=== PATIENT | male | born 1950 | race Caucasian/White ===

== ENCOUNTER 2017-11-14 16:18 | Emergency (ER) | payer MEDICARE, SELFPAY ==
[2017-11-14 16:29] VITALS: BP 137/95; PULSE 101; RESP 24; TEMP 36.5; O2SAT 98
[2017-11-14 16:46] VITALS: BP 118/84; PULSE 97; O2SAT 100
[2017-11-14 17:01] VITALS: BP 116/76; PULSE 106
[2017-11-14 17:15] VITALS: BP 121/84; PULSE 102
[2017-11-14 17:17] LABS: Abs Immature Grans 0.12 k/cumm (0.0-0.09); HCT 46.6 % (40.0-50.0); Mean Corp. HGB Concentration 34.3 g/dL (32.0-36.0); Mean Corpuscular Volume 96.1 fL (80-95); Mean Platelet Volume 10.3 fL (8.0-11.0); Platelet Count 255 x1000/uL (130-400); RBC 4.85 m/cumm (4.50-6.00); RBC Distribution Width 14.7 % (11.8-14.1); White Blood Cell Count 11.69 k/cumm (4.4-10.8)
[2017-11-14] MEDS: Ketorolac 30 MG/ML VIAL IVP (17:26)
--- NOTE | 2017-11-14 17:34 | DI.REPORT_ITS ---
SYMPTOM/DIAGNOSIS: SEVERE ABDOMINAL PAIN ABDOMEN: 11/14/17 Two views were obtained. There are vascular clips in the paramedian location on the right. There is a large quantity of fecal material in the left colon without evidence of obstruction. No free intraperitoneal air identified on uipright view. CONCLUSION: No evidence of acute disease.
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
[2017-11-14 17:44] LABS: Absolute Eosinophil Count 1.52 k/cumm (0.0-0.7); Absolute Lymphocyte Count 3.16 k/cumm (1.2-3.4); Atypical Lymphocytes % 13
[2017-11-14 17:45] LABS: Diff Comment Manual Differential
[2017-11-14 17:47] LABS: Acanthocytes 1+
[2017-11-14 17:49] LABS: Macrocytosis 1+
--- NOTE | 2017-11-14 18:08 | DI.VRAD_ITS ---
EXAM: XR Abdomen, 2 Views CLINICAL HISTORY: 67 years old, male; Pain; Abdominal pain TECHNIQUE: Frontal view of the abdomen/pelvis with upright view of the abdomen. COMPARISON: No relevant prior studies available. FINDINGS: Lower thorax: The lung bases are clear. Intraperitoneal space: No free air. Gastrointestinal tract: There is a moderate amount fecal matter and air in the colon extending from the cecum to the rectum. There are few air-filled loops of nondistended small bowel. No bowel obstruction. Organs: Unremarkable as visualized. Bones/joints: There are degenerative changes within the lumbar spine and both hips. Soft tissues: Multiple surgical clips superimposed over the mid abdomen. Vasculature: Calcifications within the pelvis consistent with phleboliths. IMPRESSION: No bowel obstruction or free intraperitoneal air. Dictated and Authenticated by: Ck Bruno MD. Ordering:MELINDA STACK MD
[2017-11-14 18:15] LABS: ALT 39 U/L (16-63); AST 37 U/L (15-37); Albumin 3.8 g/dL (3.4-5.0); Alkaline Phosphatase 97 U/L (46-116); Amylase 83 U/L (25-115); Anion Gap 10.4 mmol/L (3-11); BUN 15 mg/dL (7-18); Bilirubin, Direct 0.15 mg/dL (0.00-0.20); Bilirubin, Total 0.86 mg/dL (0.2-1.0); CO2 27.6 mmol/L (21.0-32.0); CREATININE 0.93 mg/dL (0.70-1.30); Calcium 9.7 mg/dL (8.5-10.1); Chloride 99 mmol/L (98-107); Glucose 99 mg/dL (70-100); Lipase 103 U/L (73-393); Magnesium 1.9 mg/dL (1.8-2.4); Potassium 4.2 mmol/L (3.5-5.1); Sodium 137 mmol/L (136-145); Total Protein 8.2 g/dL (6.4-8.2)
[2017-11-14 18:24] LABS: Troponin I < 0.02 ng/mL (0.00-0.06)
[2017-11-14 18:24] LABS: Bilirubin Negative (Negative); Blood Trace-lysed (Negative); Clarity Clear; Glucose Negative (Negative); Ketones Negative (Negative); Leukocyte Esterase Negative (Negative); Nitrite Negative (Negative); Specific Gravity <= 1.005 (1.005-1.025); Urobilinogen 0.2 EU/dL (Up TO 0.2); pH 5.5 (5-8)
[2017-11-14 18:33] LABS: Bacteria Negative HPF (Negative); C & S Indicated? No; Casts Negative LPF (Negative); Crystals Negative HPF (Negative); Epithelial Cells Negative HPF (Negative); Mucus Negative (Negative); Other Cells Negative (Negative); RBC 0-2 (0-2); WBC Negative HPF (0-5)
[2017-11-14 18:53] VITALS: BP 128/76; PULSE 85; RESP 16; O2SAT 98
== END 2017-11-14 19:00 | disposition home or self-care (01) ==
PROVIDERS: Emergency Provider Student in an Organized Health Care Education/Training Program
DX: K59.00 Constipation, unspecified (principal)
CPT/HCPCS: 80048; 80053; 80076; 83690; 96374; 99284; 74019; 81003; 81015; 82150; 83735; 84484; 85025; J1885

== ENCOUNTER 2018-05-05 13:25 | Emergency (ER) | payer OTHER, SELFPAY ==
[2018-05-05] VITALS (50 sets, daily range): BP systolic 147–165; BP diastolic 85–98; PULSE 52–99; RESP 9–27; TEMP 36.7; O2SAT 85–100
[2018-05-05 14:13] LABS: HCT 44.5 % (40.0-50.0); HGB 15.5 g/dL (13.5-17.5); Mean Corp. HGB Concentration 34.8 g/dL (32.0-36.0); Mean Corpuscular Hemoglobin 34.2 pg (27.0-33.0); Mean Corpuscular Volume 98.2 fL (80-95); Mean Platelet Volume 9.8 fL (8.0-11.0); Platelet Count 218 x1000/uL (130-400); RBC 4.53 m/cumm (4.50-6.00); RBC Distribution Width 14.9 % (11.8-14.1); White Blood Cell Count 10.67 k/cumm (4.4-10.8)
[2018-05-05 14:19] LABS: Anion Gap 8.8 mmol/L (3-11); BUN 19 mg/dL (7-18); CO2 30.2 mmol/L (21.0-32.0); CREATININE 1.01 mg/dL (0.70-1.30); Calcium 9.1 mg/dL (8.5-10.1); Chloride 99 mmol/L (98-107); Glucose 93 mg/dL (70-100); Sodium 138 mmol/L (136-145)
[2018-05-05] MEDS: Normal Saline 1,000 ML 1000 ML IV ×2 (15:04→17:06)
[2018-05-05] MEDS: Ondansetron 4 MG/2 ML VIAL IVP (15:07)
--- NOTE | 2018-05-05 15:08 | W.ED.GENAD ---
Discharge Plan Disposition Patient Disposition: [facility] Condition: Stable Discharge Details Chief Complaint: Abd Prob Clinical Impression: SBO (small bowel obstruction), Colitis, Abdominal pain Primary Care Provider: [facility] ED Provider: Jazz Finley Home Meds and New Rx's Prescriptions: No Action thiamine HCl (vitamin B1) [Vitamin B-1] 100 MG tablet 1 tab PO DAILY RF: 0 tamsulosin 0.4 MG capsule 1 tab PO DAILY RF: 0 hydroxyzine HCl 25 MG tablet 25 mg PO HS RF: 0 finasteride 5 MG tablet 5 mg PO DAILY RF: 0 tadalafil [Cialis] 20 MG tablet 1 tab PO PRN PRNRF: 0 albuterol sulfate [Proventil HFA] 1 PUFF HFA aerosol inhaler 2 puff Inhalation .Q6HR Qty: 1 RF: 0 apixaban [Eliquis] 5 MG tablet 10 mg PO BID Qty: 40 RF: 0 pantoprazole 40 MG tablet,delayed release (DR/EC) 40 mg PO DAILY Qty: 30 RF: 0 Discharge Data Discharge Date/Time-TO BE ENTERED AT DEPARTURE: 05/06/18 04:05 Medical Decision Making <Jazz Finley MD - Last Filed: 05/06/18 13:44> Eric Nelson is a 67 y/o man with a history of heavy alcohol use, GI bleed, GERD presenting to the emergency department with upper abdominal pain that began earlier today accompanied by vomiting. On exam patient is nontoxic appearing, is laughing and pleasant. He smells strongly of alcohol but does not appear to be clinically intoxicated. He intermittently appears uncomfortable and has tenderness in the epigastrium without peritoneal signs. Concern for pancreatitis versus gastritis versus other, less likely biliary disease or SBO. Exam/history not consistent with mesenteric ischemia, sepsis at this time. Plan for screening labs, IV fluid hydration, IV opiate pain control. Patient reports that he developed hives during last CT, plan for labs and possible prep. Pt with etoh+. Desat into high 80s with IV pain meds without somnolence, sats 100% on 3L. Pt with exam unchanged. Pt now reporting that hives occurred [address] scan. Reports no reaction during scans 2018 or [address] a/p, solumedrol given, will give benadryl prior to scan. Pt signed out to Dr. Nance with CT, repeat lactate, reassessment pending. Clinical Impression: abdominal pain Dispostion: still a patient Medical Records Medical records reviewed: Yes I reviewed the patient's medical records. Lab Data Lab results reviewed: Yes I reviewed the patient's lab results. ECG Data Attestation: I personally reviewed and interpreted this ECG (s) as follows: Interpretation: EKG shows NSR at 82 with nl axis, RBBB, no STEMI, non-diagnostic EKG <Nathanael Nance, DO - Last Filed: 05/06/18 01:23> Patient was signed out to me by my colleague Dr. Finley. We are awaiting CT results at that time. Patient CT results have returned, and demonstrates evidence of narrowing at the origin of the SMA, areas of nonspecific prominence in both the small bowel and large bowel can be seen with enteritis and colitis. No pneumatosis or portal venous gas is currently seen. There is also a dilated loop of small bowel in the left hemiabdomen which contains fluid and is associated with an anastomotic suture. Concern for partial obstructive process. There is also evidence of a moderate hiatal hernia with prominence of the distal esophagus, as well as hypodense haziness in the pancreatic head could be motion artifact or pancreatitis. There is also liver lesions which need MRI follow-up, and urinary bladder wall prominence. I discussed these findings with the on-call surgeon here, Dr. Araujo, and she felt that the patient is not appropriate to be left here, and should be transferred to a different facility. I did contact the [facility] discussed the case with the cardiac surgeon, Dr. Holcomb, who made it unquestionably clear after reviewing the image findings, and the patient's clinical scenario including all of his labs that this was not a mesenteric ischemia picture, and that the patient does not have any vascular issues.I did discuss the case with Dr. Reddy the [facility] surgeon, and he did not feel that any acute surgical process was present at this time that needed surgical intervention. He recommended transfer to another lower level facility where there was potential room. He does not feel that the operation should be transferred to the [facility].Currently there are no beds with at [facility], [facility], [facility], [facility], [facility]. All repeat lactate was normal. Patient's vital signs have remained stable here. I have started Cipro Flagyl for his colitis. With vascular recommending no intervention for any vascular etiology, and the patient being on Eliquis, I do not feel that an option or further vascular management is indicated per their recommendation. I discussed the case with and he agreed with the assessment and plan and agreed to accept the patient at [facility]. At this time we feel that we can hold off on an NG tube as he is not currently vomiting, and stick with IV fluids as he has somewhat of a difficult patient at this time. I discussed the imaging findings, and the patient's laboratory results with him. I have extensively reviewed the treatment plan with the patient. I have addressed all patient concerns at this time. I have also discussed the plan with the admitting physician and they agree with the current assessment and plan and have agreed to assume responsibility for the patient. All parties demonstrate verbal understanding and agreement with our assessment and plan at this time. HPI <Jazz Finley MD - Last Filed: 05/06/18 13:44> General Mode of arrival: ambulatory. Date/Time Provider Initiated Documentation: 05/05/18 14:50. Limitations to Documentation: no limitations. Information obtained by: patient, RN notes reviewed and old records reviewed. HPI Narrative: Eric Nelson is a 67-year-old man with history of GERD, GI bleed, heavy alcohol use presenting to emergency department with abdominal pain. Patient reports that this morning he developed severe pain in his upper abdomen. He reports several episodes of vomiting of yellow fluid. There was no dark, bloody, or coffee-ground emesis. He has had no diarrhea, no constipation. Patient reports that he has had similar pain in the past, and is unsure what he was diagnosed with at the time. He denies fevers other pain, shortness of breath, cough, recent travel. States he has been eating and drinking normally. Reports that his last drink was last night, and that he drinks 2-3 alcoholic drinks per day. Related Data Home Medications Medication Instructions Recorded Confirmed finasteride 5 mg PO DAILY 07/16/15 05/05/18 hydroxyzine HCl 25 mg PO HS 07/16/15 05/05/18 tadalafil [Cialis] 1 tab PO PRN PRN 07/16/15 05/05/18 tamsulosin 1 tab PO DAILY 07/16/15 05/05/18 thiamine HCl (vitamin B1) [Vitamin 1 tab PO DAILY 07/16/15 05/05/18 B-1] albuterol sulfate [Proventil HFA] 2 puff INHALATION .Q6HR #1 inh 08/25/15 05/05/18 pantoprazole 40 mg PO DAILY #30 tabcr 03/26/17 05/05/18 apixaban [Eliquis] 10 mg PO BID #40 tablet 07/24/17 05/05/18 Previous Rx's Medication Instructions Recorded albuterol sulfate [Proventil HFA] 2 puff INHALATION .Q6HR #1 inh 08/25/15 pantoprazole 40 mg PO DAILY #30 tabcr 03/26/17 apixaban [Eliquis] 10 mg PO BID #40 tablet 07/24/17 Allergies Allergy/AdvReac Type Severity Reaction Status Date / Time ciprofloxacin Allergy Severe Anaphylaxsi Unverified 05/06/18 01:33 s atropine AdvReac Severe BP drops Unverified 11/14/17 16:32 pentazocine AdvReac Unknown Unverified 11/14/17 16:32 IV contrast AdvReac Unknown Hives Uncoded 11/14/17 16:33 General Stated Complaint: Abd Prob MEGHNA: 3 Review of Systems <Jazz Finley MD - Last Filed: 05/06/18 13:44> Review of Systems Constitutional: denies fevers Eyes: denies eye pain ENT: denies facial pain, dental pain, sore throat Cardiovascular: denies chest pain, edema Respiratory: denies SOB, cough GI: denies diarrhea, melena, hematochezia, hematemesis, reports abdominal pain, vomiting : denies flank pain MSK: denies back pain, neck pain, arthralgias, myalgias Skin: denies rash Neuro: denies headaches, weakness Exam <Jazz Finley MD - Last Filed: 05/06/18 13:44> Narrative Exam Narrative: Constitutional: well and [id number], pleasant, conversing normally. Patient is laughing during discussion, though appears intermittently uncomfortable. Does not appear clinically intoxicated but smells strongly of alcohol HENT: head atraumatic, normocephalic normal inspection, mucous membranes moist Eyes: conjunctiva normal, sclera normal, pupils 3mm b/l Neck: no stridor, normal ROM, trachea midline Chest: normal inspection Resp: normal work of breathing, LCTAB Cardio: normal rate, normal rhythm, no murmur appreciated GI: abdomen soft, non-distended. Tender to palpation across the upper abdomen, worse in the epigastrium. No peritoneal signs, negative McBurney's point tenderness, negative Wagner sign Back: normal inspection, no rash Skin: warm, dry, normal color, no rash Neuro: alert, not altered, grossly non-focal, normal tone Ext: no edema Psych: normal mood, normal affect, normal behavior Course <Jazz Finley MD - Last Filed: 05/06/18 13:44> Vital Signs Temperature 36.7 C 05/05/18 13:54 Pulse 86 05/05/18 13:54 Respiratory Rate 22 05/05/18 13:54 Blood Pressure 157/97 H 05/05/18 13:54 Pulse Oximetry 98 05/05/18 13:54 Temperature 36.7 C 05/05/18 13:54 Temperature Source Temporal Artery Scan 05/05/18 13:54 Pulse 86 05/05/18 13:54 Respiratory Rate 22 05/05/18 13:54 Respiratory Effort 05/05/18 14:39 Blood Pressure 157/97 H 05/05/18 13:54 Blood Pressure Position Sitting 05/05/18 13:54 Pulse Oximetry 98 05/05/18 13:54 Oxygen Delivery Method Room Air 05/05/18 13:54 Oxygen Flow Rate 0 05/05/18 13:54 Pain Level 9 05/05/18 15:06 Lab/Test Results Lab/Test Results: Laboratory Tests Range/Units 05/05/18 05/05/18 14:08 14:08 WBC (4.4-10.8) k/cumm 10.67 RBC (4.50-6.00) m/cumm 4.53 Hgb (13.5-17.5) g/dL 15.5 Hct (40.0-50.0) % 44.5 MCV (80-95) fL 98.2 H MCH (27.0-33.0) pg 34.2 H MCHC (32.0-36.0) g/dL 34.8 RDW (11.8-14.1) % 14.9 H Plt Count (130-400) x1000/uL 218 MPV (8.0-11.0) fL 9.8 Sodium (136-145) mmol/L 138 Potassium (3.5-5.1) mmol/L 4.0 Chloride (98-107) mmol/L 99 Carbon Dioxide (21.0-32.0) mmol/L 30.2 Anion Gap (3-11) mmol/L 8.8 BUN (7-18) mg/dL 19 H Creatinine (0.70-1.30) mg/dL 1.01 Estimated GFR/1.73 m2 (mL/min/1.73m2) >= 60.00 Glucose (70-100) mg/dL 93 Calcium (8.5-10.1) mg/dL 9.1
[2018-05-05] MEDS: diphenhydrAMINE 50 MG/ML VIAL 25 MG IVP ×2 (15:19→18:38)
[2018-05-05 15:37] LABS: INR 1.1 (1.0-3.5); Prothrombin Time 10.4 sec (9.3-10.8)
[2018-05-05] MEDS: HYDROmorphone 2 MG/ML VIAL 0.5 MG IVP ×2 (15:39→21:08)
--- NOTE | 2018-05-05 15:57 | ED.GENADUL_ITS ---
Addendum entered and electronically signed by Nathanael Nance DO 05/06/18 01: 23: Immediately prior to transfer while the patient was receiving his Cipro he did have an allergic reaction to this, demonstrated edema and hives on his arm at the injection site. We will stop the Cipro, give Solu-Medrol Benadryl and ranitidine. No evidence of anaphylaxis on exam. Original Note: Discharge Plan Disposition Patient Disposition: [facility] Condition: Stable Discharge Details Chief Complaint: Abd Prob Clinical Impression: SBO (small bowel obstruction), Colitis, Abdominal pain Primary Care Provider: [facility] Provider: Jazz Finley Home Meds and New Rx's Prescriptions: No Action thiamine HCl (vitamin B1) [Vitamin B-1] 100 MG tablet 1 tab PO DAILY RF: 0 tamsulosin 0.4 MG capsule 1 tab PO DAILY RF: 0 hydroxyzine HCl 25 MG tablet 25 mg PO HS RF: 0 finasteride 5 MG tablet 5 mg PO DAILY RF: 0 tadalafil [Cialis] 20 MG tablet 1 tab PO PRN PRNRF: 0 albuterol sulfate [Proventil HFA] 1 PUFF HFA aerosol inhaler 2 puff Inhalation .Q6HR Qty: 1 RF: 0 apixaban [Eliquis] 5 MG tablet 10 mg PO BID Qty: 40 RF: 0 pantoprazole 40 MG tablet,delayed release (DR/EC) 40 mg PO DAILY Qty: 30 RF: 0 Discharge Data Discharge Date/Time-TO BE ENTERED AT DEPARTURE: 05/06/18 04:05 Medical Decision Making <Jazz Finley MD - Last Filed: 05/06/18 13:44> Eric Nelson is a 67 y/o man with a history of heavy alcohol use, GI bleed , GERD presenting to the emergency department with upper abdominal pain that began earlier today accompanied by vomiting. On exam patient is nontoxic appearing, is laughing and pleasant. He smells strongly of alcohol but does not appear to be clinically intoxicated. He intermittently appears uncomfortable and has tenderness in the epigastrium without peritoneal signs. Concern for pancreatitis versus gastritis versus other, less likely biliary disease or SBO. Exam/history not consistent with mesenteric ischemia, sepsis at this time. Plan for screening labs, IV fluid hydration, IV opiate pain control. Patient reports that he developed hives during last CT, plan for labs and possible prep. Pt with etoh+. Desat into high 80s with IV pain meds without somnolence, sats 100% on 3L. Pt with exam unchanged. Pt now reporting that hives occurred [address] scan[address] Reports no reaction during scans 2018 or 2016. Plan for CT a/p, solumedrol given, will give benadryl prior to scan. Pt signed out to Dr. Nance with CT, repeat lactate, reassessment pending. Clinical Impression: abdominal pain Dispostion: still a patient Medical Records Medical records reviewed: Yes I reviewed the patient's medical records. Lab Data Lab results reviewed: Yes I reviewed the patient's lab results. ECG Data Attestation: I personally reviewed and interpreted this ECG (s) as follows: Interpretation: EKG shows NSR at 82 with nl axis, RBBB, no STEMI, non- diagnostic EKG <Nathanael Nance, - Last Filed: 05/06/18 01:23> Patient was signed out to me by my colleague Dr. Finley. We are awaiting CT results at that time. Patient CT results have returned, and demonstrates evidence of narrowing at the origin of the SMA, areas of nonspecific prominence in both the small bowel and large bowel can be seen with enteritis and colitis. No pneumatosis or portal venous gas is currently seen. There is also a dilated loop of small bowel in the left hemiabdomen which contains fluid and is associated with an anastomotic suture. Concern for partial obstructive process. There is also evidence of a moderate hiatal hernia with prominence of the distal esophagus, as well as hypodense haziness in the pancreatic head could be motion artifact or pancreatitis. There is also liver lesions which need MRI follow-up, and urinary bladder wall prominence. I discussed these findings with the on-call surgeon here, Dr. Araujo, and she felt that the patient is not appropriate to be left here, and should be transferred to a different facility. I did contact the [facility] discussed the case with the cardiac surgeon, Dr. Holcomb, who made it unquestionably clear after reviewing the image findings, and the patient's clinical scenario including all of his labs that this was not a mesenteric ischemia picture, and that the patient does not have any vascular issues.I did discuss the case with Dr. Reddy the [facility] surgeon, and he did not feel that any acute surgical process was present at this time that needed surgical intervention. He recommended transfer to another lower level facility where there was potential room. He does not feel that the operation should be transferred to the [facility].Currently there are no beds with at [facility], [facility], [facility], [facility], [facility]. All repeat lactate was normal. Patient's vital signs have remained stable here. I have started Cipro Flagyl for his colitis. With vascular recommending no intervention for any vascular etiology, and the patient being on Eliquis, I do not feel that an option or further vascular management is indicated per their recommendation. I discussed the case with and he agreed with the assessment and plan and agreed to accept the patient at [facility]. At this time we feel that we can hold off on an NG tube as he is not currently vomiting, and stick with IV fluids as he has somewhat of a difficult patient at this time. I discussed the imaging findings, and the patient's laboratory results with him. I have extensively reviewed the treatment plan with the patient. I have addressed all patient concerns at this time. I have also discussed the plan with the admitting physician and they agree with the current assessment and plan and have agreed to assume responsibility for the patient. All parties demonstrate verbal understanding and agreement with our assessment and plan at this time. HPI <Jazz Finley MD - Last Filed: 05/06/18 13:44> General Mode of arrival: ambulatory . Date/Time Provider Initiated Documentation: 05/05/18 14:50 . Limitations to Documentation: no limitations . Information obtained by: patient, RN notes reviewed and old records reviewed . HPI Narrative: Eric Nelson is a 67-year-old man with history of GERD, GI bleed, heavy alcohol use presenting to emergency department with abdominal pain. Patient reports that this morning he developed severe pain in his upper abdomen. He reports several episodes of vomiting of yellow fluid. There was no dark, bloody, or coffee-ground emesis. He has had no diarrhea, no constipation. Patient reports that he has had similar pain in the past, and is unsure what he was diagnosed with at the time. He denies fevers other pain, shortness of breath, cough, recent travel. States he has been eating and drinking normally. Reports that his last drink was last night, and that he drinks 2-3 alcoholic drinks per day. Related Data Home Medications Medication Instructions Recorded Confirmed finasteride 5 mg PO DAILY 07/16/15 05/05/18 hydroxyzine HCl 25 mg PO HS 07/16/15 05/05/18 tadalafil [Cialis] 1 tab PO PRN PRN 07/16/15 05/05/18 tamsulosin 1 tab PO DAILY 07/16/15 05/05/18 thiamine HCl (vitamin B1) [Vitamin 1 tab PO DAILY 07/16/15 05/05/18 B-1] albuterol sulfate [Proventil HFA] 2 puff INHALATION .Q6HR #1 inh 08/25/15 pantoprazole 40 mg PO DAILY #30 tabcr 03/26/17 05/05/18 apixaban [Eliquis] 10 mg PO BID #40 tablet 07/24/17 05/05/18 Previous Rx's Medication Instructions Recorded albuterol sulfate [Proventil HFA] 2 puff INHALATION .Q6HR #1 inh 08/25/15 pantoprazole 40 mg PO DAILY #30 tabcr 03/26/17 apixaban [Eliquis] 10 mg PO BID #40 tablet 07/24/17 Allergies Allergy/AdvReac Type Severity Reaction Status Date / Time ciprofloxacin Allergy Severe Anaphylaxsi Unverified 05/06/18 01:33 s atropine AdvReac Severe BP drops Unverified 11/14/17 16:32 pentazocine AdvReac Unknown Unverified 11/14/17 16:32 IV contrast AdvReac Unknown Hives Uncoded 11/14/17 16:33 General Stated Complaint: Abd Prob MEGHNA: 3 Review of Systems <Jazz Finley MD - Last Filed: 05/06/18 13:44> Review of Systems Constitutional: denies fevers Eyes: denies eye pain ENT: denies facial pain, dental pain, sore throat Cardiovascular: denies chest pain, edema Respiratory: denies SOB, cough GI: denies diarrhea, melena, hematochezia, hematemesis, reports abdominal pain, vomiting : denies flank pain MSK: denies back pain, neck pain, arthralgias, myalgias Skin: denies rash Neuro: denies headaches, weakness Exam <Jazz Finley MD - Last Filed: 05/06/18 13:44> Narrative Exam Narrative: Constitutional: well and [id number], pleasant, conversing normally. Patient is laughing during discussion, though appears intermittently uncomfortable. Does not appear clinically intoxicated but smells strongly of alcohol HENT: head atraumatic, normocephalic normal inspection, mucous membranes moist Eyes: conjunctiva normal, sclera normal, pupils 3mm b/l Neck: no stridor, normal ROM, trachea midline Chest: normal inspection Resp: normal work of breathing, LCTAB Cardio: normal rate, normal rhythm, no murmur appreciated GI: abdomen soft, non-distended. Tender to palpation across the upper abdomen, worse in the epigastrium. No peritoneal signs, negative McBurney's point tenderness, negative Wagner sign Back: normal inspection, no rash Skin: warm, dry, normal color, no rash Neuro: alert, not altered, grossly non-focal, normal tone Ext: no edema Psych: normal mood, normal affect, normal behavior Course <Jazz Finley MD - Last Filed: 05/06/18 13:44> Vital Signs Temperature 36.7 C 05/05/18 13:54 Pulse 86 05/05/18 13:54 Respiratory Rate 22 05/05/18 13:54 Blood Pressure 157/97 H 05/05/18 13:54 Pulse Oximetry 98 05/05/18 13:54 Temperature 36.7 C 05/05/18 13:54 Temperature Source Temporal Artery Scan 05/05/18 13:54 Pulse 86 05/05/18 13:54 Respiratory Rate 22 05/05/18 13:54 Respiratory Effort 05/05/18 14:39 Blood Pressure 157/97 H 05/05/18 13:54 Blood Pressure Position Sitting 05/05/18 13:54 Pulse Oximetry 98 05/05/18 13:54 Oxygen Delivery Method Room Air 05/05/18 13:54 Oxygen Flow Rate 0 05/05/18 13:54 Pain Level 9 05/05/18 15:06 Lab/Test Results Lab/Test Results: Laboratory Tests Range/Units 05/05/18 05/05/18 14:08 14:08 WBC (4.4-10.8) k/cumm 10.67 RBC (4.50-6.00) m/cumm 4.53 Hgb (13.5-17.5) g/dL 15.5 Hct (40.0-50.0) % 44.5 MCV (80-95) fL 98.2 H MCH (27.0-33.0) pg 34.2 H MCHC (32.0-36.0) g/dL 34.8 RDW (11.8-14.1) % 14.9 H Plt Count (130-400) x1000/uL 218 MPV (8.0-11.0) fL 9.8 Sodium (136-145) mmol/L 138 Potassium (3.5-5.1) mmol/L 4.0 Chloride (98-107) mmol/L 99 Carbon Dioxide (21.0-32.0) mmol/L 30.2 Anion Gap (3-11) mmol/L 8.8 BUN (7-18) mg/dL 19 H Creatinine (0.70-1.30) mg/dL 1.01 Estimated GFR/1.73 m2 (mL/min/1.73m2) >= 60.00 Glucose (70-100) mg/dL 93 Calcium (8.5-10.1) mg/dL 9.1
[2018-05-05 16:35] LABS: Lactate-non-spesis 3.3 mmol/L (0.6-1.4)
[2018-05-05 16:39] LABS: ETHANOL BLOOD 88.8 mg/dL (<3); Lipase 107 U/L (73-393)
[2018-05-05] MEDS: methylPREDNISolone SUCC 125 MG VIAL IVP (17:06)
[2018-05-05 17:41] LABS: Bilirubin Negative (Negative); Blood Trace-intact (Negative); Clarity Clear; Glucose Negative (Negative); Ketones 40 mg/dL (Negative); Leukocyte Esterase Negative (Negative); Nitrite Negative (Negative); Specific Gravity 1.025 (1.005-1.025)
[2018-05-05 17:52] LABS: HCO3 (Venous) 31 mmol/L (22-28); O2 Sat (Venous) 37 % (70-80); TCO2 (Venous) 28 mmol/L (22-29); pCO2 (Venous) 55 mm/Hg (34-47); pH (Venous) 7.35 (7.32-7.43); pO2 (Venous) 25 mm/Hg (28-44)
[2018-05-05 17:53] LABS: Bacteria Negative HPF (Negative); C & S Indicated? No; Casts Negative LPF (Negative); Crystals Negative HPF (Negative); Epithelial Cells Negative HPF (Negative); Mucus Negative (Negative); Other Cells Negative (Negative)
--- NOTE | 2018-05-05 18:59 | DI.CT_ITS ---
SYMPTOMS/DIAGNOSIS: EPIGASTRIC PAIN, ? MESENTERIC ISCHEMIA CT SCAN OF THE ABDOMEN AND PELVIS: Routine post contrast examination was performed. The study is limited due to patient motion artifact and lack of oral contrast in the bowel. There is mild bibasilar atelectasis present. Note is made of a moderate sized hiatal hernia. There is apparent thickening of the wall of the hernia and proximal stomach. This likely reflects underdistention. The liver is normal in size. There are again seen several hypodense lesions within the liver suggesting cysts. There is again seen a focal area of enhancement in the anterior aspect of the right lobe of the liver (series 5, image 9). This is unchanged compared to prior examination and likely reflects a hepatic hemangioma. The gallbladder is negative. No biliary ductal dilatation is present. There are pancreatic calcifications seen. These are unchanged compared to the prior examinations. There is a question of an area of decreased attenuation involving the head of the pancreas. This appears to likely be due to patient motion artifact but a mass can not be excluded. The spleen is unremarkable. There is stable bilateral adrenal nodularity likely reflecting adrenal adenomas. These are stable dating back to 2016. The kidneys show normal and symmetric enhancement. No suspicious renal masses or calculi are identified. The urinary bladder is intact. Apparent bladder wall thickening likely is due to underdistention. Inflammatory or infectious process is considered less likely but can not be excluded. Please correlate clinically. The prostate gland appears mildly enlarged but stable. There is atherosclerosis of the abdominal aorta. No aneurysmal dilatation is seen. There may be mild narrowing of the origin of the superior mesenteric artery. The celiac artery is unremarkable. The inferior mesenteric artery is unremarkable. No significant abdominal or pelvic adenopathy is appreciated. No abdominal ascites or pneumoperitoneum is present. There is a question of mild thickening of the wall of the bowel, however, this likely reflects underdistention. No pericolonic inflammatory changes are seen. No findings to suggest an acute appendicitis. Mild wall thickening is seen in loops of small bowel in the left abdomen including an area of anastomosis in the central left abdomen. This loop is dilated and the possibility of an early obstruction can not be excluded. Degenerative changes are seen in the spine. IMPRESSION: 1. Question of mild wall thickening in both small and large bowel and enteritis/colitis can not be excluded. Please correlate clinically. 2. Mildly dilated loop of small bowel in the left hemiabdomen within an area of prior anastomosis. Early obstruction should be considered. 3. Area of decreased attenuation in the pancreatic head. This may be related to patient motion artifact. Mass or inflammatory or infectious process can not be excluded.
[2018-05-05] MEDS: Omnipaque 350 MG/ML 100 ML BTL IJ (19:17)
--- NOTE | 2018-05-05 20:25 | DI.VRAD_ITS ---
EXAM: CT Abdomen and Pelvis With Intravenous Contrast CLINICAL HISTORY: 67 years old, male; Pain; Abdominal pain; Epigastric; Patient HX: Epigastric pain; Additional info: ? Mesenteric ischemia TECHNIQUE: Axial computed tomography images of the abdomen and pelvis with intravenous contrast. Coronal and sagittal reformatted images were created and reviewed. COMPARISON: CT ABD PELVIS WITH CONTRAST 09/11/2017 4:23 PM FINDINGS: Limitations: This is a compromised examination secondary to motion. In addition, the bowel is not well assessed secondary to lack of oral contrast. Lung bases: Bibasilar atelectasis or scarring. Mediastinum: Moderate hiatal hernia with wall prominence to the distal esophagus and GE junction. There is also wall prominence to the stomach. These findings may be related to underdistention but should be correlated with any concern for inflammation or pathology. ABDOMEN: Liver: There is hepatic steatosis. There is a hypodensity near the falciform ligament. This is a good location for focal focal fat or a portal perfusion defect. Several too small to characterize hypodensities are noted in the liver. Some are more prominent than on prior examination. In addition, on series 5 image 9, an enhancing lesion is noted in the anterior liver, 1.8 cm. This does not fill the criteria for a simple cyst. Pathology not excluded. MRI would be beneficial. Gallbladder and bile ducts: Not well assessed secondary to motion. Pancreas: There are postsurgical changes to the pancreas with areas of calcification, similar to prior examination. Pancreatic ductal prominence remains seen. There is a hazy hypodense appearance to the pancreatic head region which could be related to motion or pancreatitis/pathology. Again seen is a rim calcified 1.2 cm structure between the pancreas and stomach, the significance of which is uncertain. This may be related to postsurgical changes. Other types of abnormalities such as a pseudocyst not excluded. Spleen: Unremarkable. No splenomegaly. Adrenals: There is a persistent bulky nodular appearance to the adrenal glands, left greater than right. If indicated, this can be further evaluated with an adrenal mass protocol CT scan or MRI. Kidneys and ureters: Too small to characterize hypodensities remain noted in the left kidney. The left perinephric stranding is unchanged. No hydronephrosis. Stomach and bowel: There is some wall prominence to the loops of small bowel in the left hemiabdomen, series 5 image 22.There is a dilated loop of small bowel in the left hemiabdomen on series 5 image 40 measuring 4.7 cm. This contains fluid and is associated with an anastomotic suture. Finding should be correlated with any concern for early or partial obstructive process. There is wall prominence to the portions of the ascending colon, descending colon, and distal colon/rectum (series 5 image 63). Finding should be correlated with concern for colitis (infectious, inflammatory, or ischemic). PELVIS: Appendix: No findings to suggest acute appendicitis. Bladder: There is urinary bladder wall prominence. This can be seen with infection, underdistention, or pathology. Reproductive: The prostate is heterogeneous. ABDOMEN and PELVIS: Intraperitoneal space: Unremarkable. No free air. No significant fluid collection. Bones/joints: Skeletal degenerative changes. Scattered sclerotic foci in the bones, similar to prior examination. There is multilevel disc space narrowing and vacuum phenomenon in the lumbar spine. There is retrolisthesis of L3 on L4, unchanged. Soft tissues: Surgical clips are noted along being right psoas muscle. Vasculature: Evaluation of the arterial structures is limited as this is not a dedicated CTA. Calcified and noncalcified plaque is noted in the aorta and branch vessels. No abdominal aortic aneurysm. The celiac artery is patent. There is narrowing at the origin of the SMA. The origin of the YVES is difficult to assess. Lymph nodes: No enlarged lymph nodes. IMPRESSION: 1. Evaluation of the arterial structures is limited as this is not a dedicated CTA. There is narrowing at the origin of the SMA. There are areas of nonspecific prominence in both the small bowel and large bowel which can be seen with enteritis/colitis (infectious, inflammatory, or ischemic). No pneumatosis or portal venous gas is currently seen. Correlation suggested. 2. Dilated loop of small bowel in the left hemiabdomen. This contains fluid and is associated with an anastomotic suture. Finding should be correlated with any concern for early or partial obstructive process. 3. Moderate hiatal hernia with wall prominence to the distal esophagus, GE junction, and portions of the stomach. Findings could be related to underdistention but should be correlated with any concern for inflammation or pathology. 4. Hazy hypodense appearance to the pancreatic head region which could be related to motion or pancreatitis/pathology. 5. Liver findings as above for which an MRI would be beneficial. 6. Urinary bladder wall prominence. Other findings as above. THIS REPORT CONTAINS FINDINGS THAT MAY BE CRITICAL TO PATIENT CARE. The findings were verbally communicated via telephone conference with Dr. Nance at 8:24 PM EDT on 05/05/2018. The findings were acknowledged and understood. Dictated and Authenticated by: Nya Jensen MD. Ordering:IGLESIA BLANCO MD
[2018-05-05] MEDS: MetroNIDAZOLE 500 MG/100 ML BAG 100 MG IVPB (23:42)
[2018-05-06] VITALS (15 sets, daily range): BP systolic 150–169; BP diastolic 81–94; PULSE 51–85; O2SAT 92–97
[2018-05-06] MEDS: CIPROFLOXACIN 400 MG/200 ML BAG 200 MG IVPB (01:34)
[2018-05-06] MEDS: diphenhydrAMINE 50 MG/ML VIAL IVP (01:35)
[2018-05-06] MEDS: methylPREDNISolone SUCC 125 MG VIAL IVP (01:36)
[2018-05-06] MEDS: HYDROmorphone 2 MG/ML VIAL 0.5 MG IVP (02:27)
== END 2018-05-06 04:05 | disposition short-term general hospital (02) ==
PROVIDERS: Student in an Organized Health Care Education/Training Program; Emergency Provider Student in an Organized Health Care Education/Training Program
DX: K56.600 Partial intestinal obstruction, unspecified as to cause (principal); K52.9 Noninfective gastroenteritis and colitis, unspecified; R10.13 Epigastric pain; R09.02 Hypoxemia; R21 Rash and other nonspecific skin eruption; T36.8X5A Adverse effect of other systemic antibiotics, initial encounter; R93.3 Abnormal findings on diagnostic imaging of other parts of digestive tract; R93.41 Abnormal radiologic findings on diagnostic imaging of renal pelvis, ureter, or bladder
CPT/HCPCS: 36415; 80048; 82805; 83690; 85027; 93005; 96361; 96365; 96366; 96375; 96376; 99285; 74177; 80320; 81003; 81015; 83605; 85610; 93010; J0744; J1200; J2405; J2930; J3490

== ENCOUNTER 2018-05-16 17:18 | Emergency (ER) | payer OTHER, SELFPAY ==
[2018-05-16 17:32] VITALS: BP 111/67; PULSE 115; RESP 20; TEMP 36.4; O2SAT 93
[2018-05-16 17:40] VITALS: RESP 18
[2018-05-16] MEDS: Acetaminophen 325 MG TAB 650 MG PO (18:23)
--- NOTE | 2018-05-16 18:35 | W.ED.GENAD ---
Discharge Plan Disposition Patient Disposition: HOME Condition: Stable Discharge Details Chief Complaint: GenMedical Clinical Impression: Thrombosis of right saphenous vein [facility] Care [facility] [place] Provider: Thony Goode Home Meds and New Rx's Prescriptions: Continue thiamine HCl (vitamin B1) [Vitamin B-1] 100 MG tablet 1 tab PO DAILY RF: 0 tamsulosin 0.4 MG capsule 1 tab PO DAILY RF: 0 hydroxyzine HCl 25 MG tablet 25 mg PO HS RF: 0 finasteride 5 MG tablet 5 mg PO DAILY RF: 0 tadalafil [Cialis] 20 MG tablet 1 tab PO PRN PRNRF: 0 albuterol sulfate [Proventil HFA] 1 PUFF HFA aerosol inhaler 2 puff Inhalation .Q6HR Qty: 1 RF: 0 apixaban [Eliquis] 5 MG tablet 10 mg PO BID Qty: 40 RF: 0 pantoprazole 40 MG tablet,delayed release (DR/EC) 40 mg PO DAILY Qty: 30 RF: 0 Discharge Instructions Instructions: Deep Venous Thrombosis (ED) Additional Instructions: Return immediately to the emergency department for any chest pain, shortness of breath/difficulty breathing, neurological symptoms, or any further concerns he may have. You may use [id number] acetaminophen as needed for discomfort and follow-up with your primary care provider next week for reassessment. Referrals: [facility] [Primary Care Provider] - (Follow-up with the [place] preferably early next week for reassessment.) Discharge Data Discharge Date/Time-TO BE ENTERED AT DEPARTURE: 05/16/18 21:16 Medical Decision Making Patient presenting to the emergency department for chief complaint of right thigh and buttock pain. Patient denies any injury or trauma but does state that he stopped his Eliquis 2 days ago because his brother bosses him around . 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 Patient denies any injury or trauma. Examination is positive for erythema to the medial aspect of the right thigh, significant tenderness with palpation of the soft tissue, and bedside ultrasound that shows possible thrombus but difficult to fully visualize. Do plan on checking screening labs, including PT PTT and INR, blood counts, and attempting to obtain ultrasound imaging of the lower extremity. Pending results patient given acetaminophen and 2 mg IV morphine. Patient is otherwise stable and denies any chest pain, shortness of breath or difficulty breathing, or other medical complaints so doubt thrombus migration to anywhere else in the body at this time. We will continue to assess. Labs were reassessed and show a mild leukocytosis otherwise labs are nondiagnostic. Patient reassessed and continues to complain of right leg pain but denies chest pain shortness of breath difficulty breathing. Was able to obtain a radiologist word processor technician to come in and perform ultrasound imaging of the lower extremity Preliminary report from word processor technician shows a right greater saphenous thrombosis all the way from the beginning of the femoral branch into the calf with no involvement of the femoral vein and what is able to be visualized of the deep veins show no thrombus. Given the significant size of this patient was restarted on his Eliquis at 10 mg twice daily for the next week and placed upon care management list for a close [facility]. Patient encouraged to return for any chest pain, shortness of breath, difficulty breathing, neurological signs or symptoms, or any further concerns. After discussion of diagnosis and plan of care patient has no further needs, questions, or concerns and states clear understanding to return to the emergency department for any worsening symptoms. HPI General Mode of arrival: ambulatory. Date/Time Provider Initiated Documentation: 05/16/18 17:40. Limitations to Documentation: no limitations. Information obtained by: patient, RN notes reviewed and old records reviewed. History of Present Illness 67 year old M presents to the emergency department with the chief complaint of Right leg, described as severe, with intensity rated at 8. and is localized to the right and lower extremity. Patient reports radiation to (Buttock). Patient started experiencing this hour(s) (10) and it has been constant. No relieving factors improve symptom(s), No exacerbating factors reported . Patient notes no other symptoms.. Patient did receive the following treatments prior to arrival, none Related Data Home Medications Medication Instructions Recorded Confirmed finasteride 5 mg PO DAILY 07/16/15 05/16/18 hydroxyzine HCl 25 mg PO HS 07/16/15 05/16/18 tadalafil [Cialis] 1 tab PO PRN PRN 07/16/15 05/16/18 tamsulosin 1 tab PO DAILY 07/16/15 05/16/18 thiamine HCl (vitamin B1) [Vitamin 1 tab PO DAILY 07/16/15 05/16/18 B-1] albuterol sulfate [Proventil HFA] 2 puff INHALATION .Q6HR #1 inh 08/25/15 05/16/18 pantoprazole 40 mg PO DAILY #30 tabcr 03/26/17 05/16/18 apixaban [Eliquis] 10 mg PO BID #40 tab 05/16/18 Previous Rx's Medication Instructions Recorded albuterol sulfate [Proventil HFA] 2 puff INHALATION .Q6HR #1 inh 08/25/15 pantoprazole 40 mg PO DAILY #30 tabcr 03/26/17 apixaban [Eliquis] 10 mg PO BID #40 tab 05/16/18 Allergies Allergy/AdvReac Type Severity Reaction Status Date / Time ciprofloxacin Allergy Severe Anaphylaxsi Unverified 05/16/18 17:38 s atropine AdvReac Severe BP drops Unverified 05/16/18 17:38 pentazocine AdvReac Unknown Unverified 05/16/18 17:38 IV contrast AdvReac Unknown Hives Uncoded 05/16/18 17:38 General Stated Complaint: GenMedical MEGHNA: 3 Review of Systems Constitutional Denies chills, Denies fever(s) and Denies headache(s) ENT Denies headache(s) Cardiovascular Denies chest pain, Denies irregular heart rhythm, Reports claudication, Reports leg edema, Denies lightheadedness and Denies dyspnea Respiratory Denies dyspnea Gastrointestinal Denies abdominal pain Musculoskeletal Reports as per HPI Neurologic Reports confusion and Denies headache(s) Psychiatric Reports confusion PFSH Social History Smoking/Tobacco Use Status: Current every day alcohol intake: current alcohol intake frequency: 3 or more drinks per day substance use type: does not use Exam Const General: cooperative, healthy appearing, comfortable and no acute distress Orientation: alert, awake and oriented x3 Resp Effort & Inspection: normal respiratory effort and able to speak in complete sentences Auscultation: clear to auscultation bilaterally Cardio Rate: regular rate Rhythm: regular rhythm Heart Sounds: S1 normal and S2 normal Pulses: normal peripheral pulses Neuro General: alert, awake, oriented x3, moves all extremities and no focal motor deficits Extrem Right lower extremity: full ROM, normal capillary refill, edema Details: non-pitting, no joint enlargement, hip/thigh Details: tenderness Location: of the mid upper leg Location: medially and other (Erythema to medial thigh) and lower leg Details: erythema and tenderness (Generalized); no palpable cords and no ecchymosis; no cyanosis Left lower extremity: full ROM, normal capillary refill and edema Details: non-pitting Course Vital Signs Temperature 36.4 C L 05/16/18 17:32 Pulse 115 H 05/16/18 17:32 Respiratory Rate 20 05/16/18 17:32 Blood Pressure 111/67 05/16/18 17:32 Pulse Oximetry 93 L 05/16/18 17:32 Temperature 36.4 C L 05/16/18 17:32 Temperature Source Skin 05/16/18 17:32 Pulse 115 H 05/16/18 17:32 Respiratory Rate 18 05/16/18 17:40 Respiratory Effort Non-Labored 05/16/18 17:40 Respiratory Depth Normal 05/16/18 17:40 Respiratory Pattern Normal 05/16/18 17:40 Blood Pressure 111/67 05/16/18 17:32 Pulse Oximetry 93 L 05/16/18 17:32 Pain Level 10 05/16/18 18:23
--- NOTE | 2018-05-16 18:42 | ED.GENADUL_ITS ---
Discharge Plan Disposition Patient Disposition: HOME Condition: Stable Discharge Details Chief Complaint: GenMedical Clinical Impression: Thrombosis of right saphenous vein [place] Care [place] [place] Provider: Thony Goode Home Meds and New Rx's Prescriptions: Continue thiamine HCl (vitamin B1) [Vitamin B-1] 100 MG tablet 1 tab PO DAILY RF: 0 tamsulosin 0.4 MG capsule 1 tab PO DAILY RF: 0 hydroxyzine HCl 25 MG tablet 25 mg PO HS RF: 0 finasteride 5 MG tablet 5 mg PO DAILY RF: 0 tadalafil [Cialis] 20 MG tablet 1 tab PO PRN PRNRF: 0 albuterol sulfate [Proventil HFA] 1 PUFF HFA aerosol inhaler 2 puff Inhalation .Q6HR Qty: 1 RF: 0 apixaban [Eliquis] 5 MG tablet 10 mg PO BID Qty: 40 RF: 0 pantoprazole 40 MG tablet,delayed release (DR/EC) 40 mg PO DAILY Qty: 30 RF: 0 Discharge Instructions Instructions: Deep Venous Thrombosis (ED) Additional Instructions: Return immediately to the emergency department for any chest pain, shortness of breath/difficulty breathing, neurological symptoms, or any further concerns he may have. You may use [id number] acetaminophen as needed for discomfort and follow-up with your primary care provider next week for reassessment. Referrals: [facility] [Primary Care Provider] - (Follow-up with the [place] preferably early next week for reassessment.) Discharge Data Discharge Date/Time-TO BE ENTERED AT DEPARTURE: 05/16/18 21:16 Medical Decision Making Patient presenting to the emergency department for chief complaint of right thigh and buttock pain. Patient denies any injury or trauma but does state that he stopped his Eliquis 2 days ago because his brother bosses him around . 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 Patient denies any injury or trauma. Examination is positive for erythema to the medial aspect of the right thigh, significant tenderness with palpation of the soft tissue, and bedside ultrasound that shows possible thrombus but difficult to fully visualize. Do plan on checking screening labs, including PT PTT and INR, blood counts, and attempting to obtain ultrasound imaging of the lower extremity. Pending results patient given acetaminophen and 2 mg IV morphine. Patient is otherwise stable and denies any chest pain, shortness of breath or difficulty breathing, or other medical complaints so doubt thrombus migration to anywhere else in the body at this time. We will continue to assess. Labs were reassessed and show a mild leukocytosis otherwise labs are nondiagnostic. Patient reassessed and continues to complain of right leg pain but denies chest pain shortness of breath difficulty breathing. Was able to obtain a radiologist railroad signal technician to come in and perform ultrasound imaging of the lower extremity Preliminary report from railroad signal technician shows a right greater saphenous thrombosis all the way from the beginning of the femoral branch into the calf with no involvement of the femoral vein and what is able to be visualized of the deep veins show no thrombus. Given the significant size of this patient was restarted on his Eliquis at 10 mg twice daily for the next week and placed upon care management list for a close follow[facility] with [facility]. Patient encouraged to return for any chest pain, shortness of breath, difficulty breathing, neurological signs or symptoms, or any further concerns. After discussion of diagnosis and plan of care patient has no further needs, questions, or concerns and states clear understanding to return to the emergency department for any worsening symptoms. HPI General Mode of arrival: ambulatory . Date/Time Provider Initiated Documentation: 05/16/18 17:40 . Limitations to Documentation: no limitations . Information obtained by: patient, RN notes reviewed and old records reviewed . History of Present Illness 67 year old M presents to the emergency department with the chief complaint of Right leg, described as severe, with intensity rated at 8. and is localized to the right and lower extremity. Patient reports radiation to ( Buttock). Patient started experiencing this hour(s) (10) and it has been constant. No relieving factors improve symptom(s), No exacerbating factors reported . Patient notes no other symptoms.. Patient did receive the following treatments prior to arrival, none Related Data Home Medications Medication Instructions Recorded Confirmed finasteride 5 mg PO DAILY 07/16/15 05/16/18 hydroxyzine HCl 25 mg PO HS 07/16/15 05/16/18 tadalafil [Cialis] 1 tab PO PRN PRN 07/16/15 05/16/18 tamsulosin 1 tab PO DAILY 07/16/15 05/16/18 thiamine HCl (vitamin B1) [Vitamin 1 tab PO DAILY 07/16/15 05/16/18 B-1] albuterol sulfate [Proventil HFA] 2 puff INHALATION .Q6HR #1 inh 08/25/15 pantoprazole 40 mg PO DAILY #30 tabcr 03/26/17 05/16/18 apixaban [Eliquis] 10 mg PO BID #40 tab 05/16/18 Previous Rx's Medication Instructions Recorded albuterol sulfate [Proventil HFA] 2 puff INHALATION .Q6HR #1 inh 08/25/15 pantoprazole 40 mg PO DAILY #30 tabcr 03/26/17 apixaban [Eliquis] 10 mg PO BID #40 tab 05/16/18 Allergies Allergy/AdvReac Type Severity Reaction Status Date / Time ciprofloxacin Allergy Severe Anaphylaxsi Unverified 05/16/18 17:38 s atropine AdvReac Severe BP drops Unverified 05/16/18 17:38 pentazocine AdvReac Unknown Unverified 05/16/18 17:38 IV contrast AdvReac Unknown Hives Uncoded 05/16/18 17:38 General Stated Complaint: GenMedical MEGHNA: 3 Review of Systems Constitutional Denies chills, Denies fever(s) and Denies headache(s) ENT Denies headache(s) Cardiovascular Denies chest pain, Denies irregular heart rhythm, Reports claudication, Reports leg edema, Denies lightheadedness and Denies dyspnea Respiratory Denies dyspnea Gastrointestinal Denies abdominal pain Musculoskeletal Reports as per HPI Neurologic Reports confusion and Denies headache(s) Psychiatric Reports confusion PFSH Social History Smoking/Tobacco Use Status: Current every day alcohol intake: current alcohol intake frequency: 3 or more drinks per day substance use type: does not use Exam Const General: cooperative, healthy appearing, comfortable and no acute distress Orientation: alert, awake and oriented x3 Resp Effort & Inspection: normal respiratory effort and able to speak in complete sentences Auscultation: clear to auscultation bilaterally Cardio Rate: regular rate Rhythm: regular rhythm Heart Sounds: S1 normal and S2 normal Pulses: normal peripheral pulses Neuro General: alert, awake, oriented x3, moves all extremities and no focal motor deficits Extrem Right lower extremity: full ROM, normal capillary refill, edema Details: non- pitting, no joint enlargement, hip/thigh Details: tenderness Location: of the mid upper leg Location: medially and other (Erythema to medial thigh) and lower leg Details: erythema and tenderness (Generalized); no palpable cords and no ecchymosis; no cyanosis Left lower extremity: full ROM, normal capillary refill and edema Details: non- pitting Course Vital Signs Temperature 36.4 C L 05/16/18 17:32 Pulse 115 H 05/16/18 17:32 Respiratory Rate 20 05/16/18 17:32 Blood Pressure 111/67 05/16/18 17:32 Pulse Oximetry 93 L 05/16/18 17:32 Temperature 36.4 C L 05/16/18 17:32 Temperature Source Skin 05/16/18 17:32 Pulse 115 H 05/16/18 17:32 Respiratory Rate 18 05/16/18 17:40 Respiratory Effort Non-Labored 05/16/18 17:40 Respiratory Depth Normal 05/16/18 17:40 Respiratory Pattern Normal 05/16/18 17:40 Blood Pressure 111/67 05/16/18 17:32 Pulse Oximetry 93 L 05/16/18 17:32 Pain Level 10 05/16/18 18:23
[2018-05-16 19:01] LABS: Abs Immature Grans 0.16 k/cumm (0.0-0.09); Absolute Basophil Count 0.11 k/cumm (0.0-0.2); Absolute Eosinophil Count 0.48 k/cumm (0.0-0.7); Absolute Lymphocyte Count 2.32 k/cumm (1.2-3.4); Absolute Monocyte Count 1.25 k/cumm (0.11-0.7); Absolute Neutrophil Count 6.61 k/cumm (1.2-6.7); Eosinophils % 4.4; HCT 42.6 % (40.0-50.0); HGB 14.7 g/dL (13.5-17.5); Immature Grans % 1.5; Lymphocytes % 21.2; Mean Corp. HGB Concentration 34.5 g/dL (32.0-36.0); Mean Corpuscular Volume 98.6 fL (80-95); Mean Platelet Volume 10.4 fL (8.0-11.0); Monocytes % 11.4; Neutrophils % 60.5; Platelet Count 203 x1000/uL (130-400); RBC 4.32 m/cumm (4.50-6.00); RBC Distribution Width 14.9 % (11.8-14.1); White Blood Cell Count 10.93 k/cumm (4.4-10.8)
[2018-05-16 19:17] LABS: ALT 29 U/L (12-78); AST 25 U/L (15-37); Albumin 3.3 g/dL (3.4-5.0); Alkaline Phosphatase 65 U/L (46-116); Anion Gap 8.2 mmol/L (3-11); BUN 17 mg/dL (7-18); Bilirubin, Total 1.4 mg/dL (0.2-1.0); CO2 26.8 mmol/L (21.0-32.0); CREATININE 1.23 mg/dL (0.70-1.30); Calcium 8.9 mg/dL (8.5-10.1); Chloride 99 mmol/L (98-107); Estimated GFR 58.69 (mL/min/1.73m2); Glucose 114 mg/dL (70-100); Potassium 4.6 mmol/L (3.5-5.1); Sodium 134 mmol/L (136-145)
[2018-05-16 19:18] LABS: INR 1.4 (1.0-3.5); PTT Activated 26.5 sec (21.0-31.4); Prothrombin Time 13.1 sec (9.3-10.8)
--- NOTE | 2018-05-16 19:29 | DI.US_ITS ---
SYMPTOMS/DIAGNOSIS: RIGHT LEG PAIN RIGHT LOWER EXTREMITY ULTRASOUND: The deep veins of the right lower extremity show normal compression, augmentation and color flow. There is no evidence of a right lower extremity deep venous thrombus. There is echogenic thrombus seen within the greater saphenous vein extending from the takeoff of the common femoral vein into at least the mid calf region. No focal fluid collection is seen in the soft tissues. IMPRESSION: 1. No evidence of a right lower extremity deep venous thrombus. 2. Superficial thrombophlebitis.
--- NOTE | 2018-05-16 20:13 | DI.VRAD_ITS ---
EXAM: US Duplex Right Lower Extremity Veins CLINICAL HISTORY: 67 years old, male; Signs and symptoms; Swelling of limb; Lower extremity, right; Patient HX: Pt has been on eliquis, stopped 2 days ago at his own discretion. TECHNIQUE: Real-time duplex ultrasound scan of the right lower extremity veins integrating B-mode two-dimensional vascular structure, Doppler spectral analysis, color flow Doppler imaging and compression. COMPARISON: No relevant prior studies available. FINDINGS: Deep veins: No deep venous thrombosis. Superficial veins: Echogenic thrombus within the right greater saphenous vein extending from the takeoff at the common femoral vein into at least the mid calf. Soft tissues: No acute findings. No popliteal cyst. IMPRESSION: 1. No deep venous thrombosis. 2. Superficial thrombophlebitis. Dictated and Authenticated by: Ck Bruno MD. Ordering:JAY PADGETT MD
[2018-05-16] MEDS: MORPHine 10 MG/ML VIAL 2 MG IVP (20:21)
[2018-05-16] MEDS: Ondansetron 4 MG/2 ML VIAL IVP (20:39)
[2018-05-16] MEDS: Apixaban 5 MG TAB 10 MG PO (20:44)
[2018-05-16 21:15] VITALS: BP 138/80; PULSE 88; RESP 18; TEMP 36.8; O2SAT 99
--- NOTE | 2018-05-19 09:33 | PDOC.ERCMPRO ---
Care Management Progress Note 05/19-Priyank OAKLEY requested assistance with a PCP ([facility]) f/u for DVT early next week. Unclear who his VA provider is. Called Eric and left a voice mail for him to return my call for assistance. Did try reaching out to the [facility] in [place] and in [facility] and both recordings stated that is was after hours (it's a federal holiday today). Will try and reach out to Eric again this afternoon.
--- NOTE | 2018-05-19 09:39 | CMPROGNOTE_ITS ---
Care Management Progress Note 05/19-Priyank OAKLEY requested assistance with a PCP ([facility]) f/u for DVT early next week. Unclear who his VA provider is. Called Eric and left a voice mail for him to return my call for assistance. Did try reaching out to the [facility] in [place] and in [facility] and both recordings stated that is was after hours (it's a federal holiday today ). Will try and reach out to Eric again this afternoon.
== END 2018-05-16 21:16 | disposition home or self-care (01) ==
PROVIDERS: Emergency Provider Nurse Practitioner Family
DX: I82.811 Embolism and thrombosis of superficial veins of right lower extremity (principal); Z86.718 Personal history of other venous thrombosis and embolism
CPT/HCPCS: 80053; 96374; 96375; 99285; 85025; 85610; 85730; 93971; 99284; J2270; J2405

== ENCOUNTER 2018-09-20 20:39 | Emergency (ER) | payer MEDICARE, OTHER, SELFPAY ==
[2018-09-20 20:49] VITALS: BP 142/100; PULSE 97; RESP 22; TEMP 36.5; O2SAT 98
--- NOTE | 2018-09-20 20:57 | W.ED.GENAD ---
Discharge Plan Disposition Patient Disposition: HOME Condition: Stable Discharge Details Chief Complaint: Orthopedic Clinical Impression: Chronic pain of right lower extremity Primary Care Provider: [facility] Provider: Chris Wen Home Meds and New Rx's Prescriptions: Continued thiamine HCl (vitamin B1) [Vitamin B-1] 100 MG tablet 1 tab PO DAILY RF: 0 tamsulosin 0.4 MG capsule 1 tab PO DAILY RF: 0 hydroxyzine HCl 25 MG tablet 25 mg PO HS RF: 0 finasteride 5 MG tablet 5 mg PO DAILY RF: 0 tadalafil [Cialis] 20 MG tablet 1 tab PO PRN PRNRF: 0 albuterol sulfate [Proventil HFA] 1 PUFF HFA aerosol inhaler 2 puff Inhalation .Q6HR Qty: 1 RF: 0 apixaban [Eliquis] 5 MG tablet 10 mg PO BID Qty: 40 RF: 0 pantoprazole 40 MG tablet,delayed release (DR/EC) 40 mg PO DAILY Qty: 30 RF: 0 Discharge Instructions Additional Instructions: You can try taking 1000mg tylenol and 600mg ibuprofen every 6 hours for pain as needed If you have fevers or your leg becomes more swollen return to the emergency department for reevaluation Follow up with your primary care provider within 1-2 weeks if symptoms continue Medical Decision Making 68 yo male with hx of alcohol abuse, prior dvt and states he is still on eliquis, copd, who comes in with 6 months of right leg pain. He denies fevers, falls, chills. He has full rom of the ankle, toes, hip, and knee. No rashes noted, no significant swelling, has mild edema of both ankles he states is chronic. Has no calf pain and localizes the pain to the anterior leg. He is bearing weight and denies trauma so doubt fx and do not feel xray indicated. no findings to suggest septic joint, cellulitis or nec fasc at this time. He has no calf pain so doubt dvt and pain is in anterior leg. Could have gout but has no warmth, redness of the ankle joint or effusion on exam. I do not feel he requires any workup at this time, i advised he continued his meds as prescribed, try taking tylenol and f/u with pcp and return precautions given Differential Diagnosis gout, chronic pain, dvt HPI General Mode of arrival: ambulatory. Date/Time Provider Initiated Documentation: 09/20/18 20:40. Limitations to Documentation: no limitations. Information obtained by: patient. History of Present Illness 68 year old M presents to the emergency department with the chief complaint of right lower leg pain, described as moderate, with intensity rated at 5. Quality is described as aching, Patient reports no radiation. Patient started experiencing this month(s) (6) and it has been constant. No relieving factors improve symptom(s), No exacerbating factors reported . Patient notes no other symptoms.. Patient did receive the following treatments prior to arrival, none Related Data Home Medications Medication Instructions Recorded Confirmed finasteride 5 mg PO DAILY 07/16/15 05/16/18 hydroxyzine HCl 25 mg PO HS 07/16/15 05/16/18 tadalafil [Cialis] 1 tab PO PRN PRN 07/16/15 05/16/18 tamsulosin 1 tab PO DAILY 07/16/15 05/16/18 thiamine HCl (vitamin B1) [Vitamin 1 tab PO DAILY 07/16/15 05/16/18 B-1] albuterol sulfate [Proventil HFA] 2 puff INHALATION .Q6HR #1 inh 08/25/15 05/16/18 pantoprazole 40 mg PO DAILY #30 tabcr 03/26/17 05/16/18 apixaban [Eliquis] 10 mg PO BID #40 tab 05/16/18 Previous Rx's Medication Instructions Recorded albuterol sulfate [Proventil HFA] 2 puff INHALATION .Q6HR #1 inh 08/25/15 pantoprazole 40 mg PO DAILY #30 tabcr 03/26/17 apixaban [Eliquis] 10 mg PO BID #40 tab 05/16/18 Allergies Allergy/AdvReac Type Severity Reaction Status Date / Time ciprofloxacin Allergy Severe Anaphylaxsi Unverified 05/16/18 17:38 s atropine AdvReac Severe BP drops Unverified 05/16/18 17:38 pentazocine AdvReac Unknown Unverified 05/16/18 17:38 IV contrast AdvReac Unknown Hives Uncoded 05/16/18 17:38 General Stated Complaint: Orthopedic MEGHNA: 3 Review of Systems Review of Systems All systems reviewed & are unremarkable except as noted in HPI and below Constitutional Denies chills, Denies fever(s) and Denies weakness ENT Denies change in voice Cardiovascular Denies chest pain and Denies dyspnea Respiratory Denies cough and Denies dyspnea Gastrointestinal Denies abdominal pain, Denies nausea and Denies vomiting Musculoskeletal Denies joint swelling Integumentary/Breasts Denies rash Neurologic Denies weakness Psychiatric Denies depression Endocrine Denies cold intolerance and Denies heat intolerance Allergic/Immunologic Denies urticaria PFSH Social History Smoking and Tabacco status: Current every day alcohol intake: current alcohol intake frequency: 3 or more drinks per day substance use type: does not use Exam Const General: no acute distress Orientation: alert HENMT Head: normal to inspection Ears: external ears normal General nose exam: external nose normal Mouth: moist mucous membranes Eyes General: appearance normal, both eyes and all related structures Neck Neck: normal visual inspection Resp Effort & Inspection: normal respiratory effort and able to speak in complete sentences Cardio Rate: regular rate Skin General skin exam: no rashes or lesions noted Neuro General: alert and oriented x3 Extrem General: normal capillary refill Psych Mental Status: mental status grossly normal Course Vital Signs Temperature 36.5 C 09/20/18 20:49 Pulse 97 H 09/20/18 20:49 Respiratory Rate 22 09/20/18 20:49 Blood Pressure 142/100 H 09/20/18 20:49 Pulse Oximetry 98 09/20/18 20:49 Temperature 36.5 C 09/20/18 20:49 Pulse 97 H 09/20/18 20:49 Respiratory Rate 22 09/20/18 20:49 Blood Pressure 142/100 H 09/20/18 20:49 Blood Pressure Position Sitting 09/20/18 20:49 Pulse Oximetry 98 09/20/18 20:49 Oxygen Delivery Method Room Air 09/20/18 20:49 Oxygen Flow Rate 0 09/20/18 20:49 Pain Level 9 09/20/18 20:49
== END 2018-09-20 21:29 | disposition home or self-care (01) ==
LOC: ER 21:07
PROVIDERS: Emergency Provider Emergency Medicine
DX: M79.604 Pain in right leg (principal); J44.1 Chronic obstructive pulmonary disease with (acute) exacerbation; Z79.01 Long term (current) use of anticoagulants
CPT/HCPCS: 99282

== ENCOUNTER 2018-10-29 16:04 | Emergency (ER) | payer MEDICARE, OTHER, SELFPAY ==
[2018-10-29 16:09] VITALS: BP 172/90; PULSE 74; RESP 16; O2SAT 97
--- NOTE | 2018-10-29 16:35 | NUR.NOTE ---
Nursing Note:This conventional underwriter attempted to get IV access per MD request. This conventional underwriter had [address] and patient moved his arms flailing and while trying to tape them down and both dislodged. Patient during this time was calling this conventional underwriter alondra. Patient was informed that my name is Nubia and patient continued to call this conventional underwriter derogatory names. Patient also continued to ask for narcotics.
[2018-10-29] MEDS: Lidocaine 5% Patch 1 PATCH TP (16:45)
--- NOTE | 2018-10-29 16:45 | NUR.NOTE ---
Nursing Note:Patient stumbled out room demanding narcotics shortly after patient was given the GI cocktail and lidoderm patch. He was requesting some narcotic pain medication. THis proposal manager writer discussed with provider and discussed her concern with provider pain medication to patient as he already was unsafe on his feet hadn't stopped asking for narcotics by name. agreed narcotics held at this time.
[2018-10-29 17:06] LABS: Abs Immature Grans 0.06 k/cumm (0.0-0.09); HCT 45.2 % (40.0-50.0); HGB 15.4 g/dL (13.5-17.5); Mean Corp. HGB Concentration 34.1 g/dL (32.0-36.0); Mean Corpuscular Hemoglobin 34.4 pg (27.0-33.0); Mean Corpuscular Volume 100.9 fL (80-95); Mean Platelet Volume 9.9 fL (8.0-11.0); RBC 4.48 m/cumm (4.50-6.00); RBC Distribution Width 14.3 % (11.8-14.1); White Blood Cell Count 10.07 k/cumm (4.4-10.8)
[2018-10-29 17:25] LABS: ALT 22 U/L (12-78); AST 31 U/L (15-37); Albumin 3.9 g/dL (3.4-5.0); Alkaline Phosphatase 57 U/L (46-116); Anion Gap 9.6 mmol/L (3-11); BUN 17 mg/dL (7-18); Bilirubin, Total 0.8 mg/dL (0.2-1.0); CO2 27.4 mmol/L (21.0-32.0); CREATININE 1.06 mg/dL (0.70-1.30); Calcium 9.3 mg/dL (8.5-10.1); Chloride 100 mmol/L (98-107); ETHANOL BLOOD 18.2 mg/dL (<3); Glucose 110 mg/dL (70-100); Lipase 91 U/L (73-393); Potassium 4.3 mmol/L (3.5-5.1); Sodium 137 mmol/L (136-145); Total Protein 7.7 g/dL (6.4-8.2)
[2018-10-29 17:32] LABS: Absolute Neutrophil Count 5.74 k/cumm (1.2-6.7)
[2018-10-29 17:33] LABS: Absolute Eosinophil Count 0.91 k/cumm (0.0-0.7); Absolute Lymphocyte Count 2.62 k/cumm (1.2-3.4); Atypical Lymphocytes % 8
[2018-10-29 17:34] LABS: Diff Comment Manual Differential; Nucleated RBC 1 /100WBC
[2018-10-29 17:37] LABS: Macrocytosis 1+; Platelet Count 217 x1000/uL (130-400); Poikilocytes 1+
--- NOTE | 2018-10-29 17:58 | ED.GENADUL_ITS ---
Discharge Plan Disposition Patient Disposition: HOME Condition: Good Discharge Details Chief Complaint: Abd Prob Clinical Impression: Peptic ulcer disease Primary Care Provider: [place] [place] Provider: Nathanael Nance Home Meds and New Rx's Prescriptions: New sucralfate [Carafate] 1 gram tablet 1 gm PO QACHS Qty: 30 RF: 0 No Action thiamine HCl (vitamin B1) [Vitamin B-1] 100 MG tablet 1 tab PO DAILY RF: 0 tamsulosin 0.4 MG capsule 1 tab PO DAILY RF: 0 hydroxyzine HCl 25 MG tablet 25 mg PO HS RF: 0 finasteride 5 MG tablet 5 mg PO DAILY RF: 0 tadalafil [Cialis] 20 MG tablet 1 tab PO PRN PRNRF: 0 Proventil HFA 1 PUFF HFA aerosol inhaler 2 puff Inhalation .Q6HR Qty: 1 RF: 0 Eliquis 5 MG tablet 10 mg PO BID Qty: 40 RF: 0 pantoprazole 40 MG tablet,delayed release (DR/EC) 40 mg PO DAILY Qty: 30 RF: 0 Discharge Instructions Instructions: Gastritis (ED) Additional Instructions: Please take the medication as directed. Please decrease on your regular alcohol consumption. If you notice any worsening of your symptoms, or any new symptoms such as vomiting, diarrhea, fever, chills, shortness of breath, chest pain, numbness, weakness, or fainting , please return immediately to the emergency department for reevaluation. Please follow up with your primary care provider as soon as possible for reassessment and reevaluation. As always, it was a pleasure participating in your medical care today. Referrals: [facility] [Primary Care Provider] - Medical Decision Making This is a pleasant 68-year-old male with a past medical history of notable alcoholism, some and GERD, who presents today for evaluation of epigastric pain. He additionally makes complaint of chronic left lower extremity pain, however this is unchanged, and he notes no new components. Physical exam demonstrates no abdominal tenderness on palpation. No guarding or rebound. With the patient's alcoholism concern was highest for gastroesophageal reflux disease and questionable peptic ulcer disease, patient was given a GI cocktail and had complete resolution of his stomach symptoms. He is able to eat and drink well here in the ED. He has no concerning red flags of melena, coco temesis, or vomiting or diarrhea in general. I doubt any significant bleeding ulcers. With complete resolution of his stomach symptoms, I feel he can be safely discharged home pending laboratory workup. Laboratory workup did return shows no significant abnormality, no elevated white count, no significant anemia, alcohol level is minimally elevated, electrolytes are within normal limits, lipase is normal. At this time patient will be discharged home with close follow-up. At the [place]. He did asked multiple times for opiates specifically, however when I addressed my concern of opiates in conjunction with alcohol and the risk for him with a potential falling damaging himself and with the worsening being an intracranial bleed, patient understands and had no more request for these. With resolution of his symptoms and absence of pain patient can be discharged. I discussed with the patient their recurrent pain issues. Today they have been evaluated in the emergency department for pain-related issues. I emphasized that my training was in the treatment of acute pain, that their physical exam here is quite reassuring, and that definitive treatment of chronic pain is not the role of the emergency department. I compassionately explained that I felt providing opiate medications from the emergency department was counterproductive in that this may cause or exacerbate tolerance, acute overdose, physiological or psychological dependence, or withdrawal. We discussed that opiate use in the management of chronic pain is best managed by a single practitioner, such as a primary care provider or a pain specialist. We discussed adjunctive therapies such as heat, ice, and exercise, as well as non-opiate medications such as acetaminophen, NSAIDs, . I reiterated that the most effective management of their chronic pain involves a multimodal approach coordinated by their primary care provider and often includes physical therapy, cognitive behavioral therapy, and referrals to practitioners such as anesthesiologists trained in chronic pain management. Patient is requesting no additional services or medications at this time. HPI General Date/Time Provider Initiated Documentation: 10/29/18 16:07 . 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 Patient states that he has had symptoms like this in the past, and it is improved with GI medications. He denies any vomiting or diarrhea. Pain is been present for the last 3 hours, he denies any hematemesis, hematochezia, melena, acholic stool. He denies any tearing sensation, chest pain, shortness of breath, numbness tingling or weakness. He denies any other modifying factors. He does admit to chronic pain in his left lower extremity but denies any acute changes. He is specifically asking for opiates for this at this time. No other modifying factors. He has been eating and drinking well. Last drink was this morning Related Data Home Medications Medication Instructions Recorded Confirmed finasteride 5 mg PO DAILY 07/16/15 09/20/18 hydroxyzine HCl 25 mg PO HS 07/16/15 09/20/18 tadalafil [Cialis] 1 tab PO PRN PRN 07/16/15 09/20/18 tamsulosin 1 tab PO DAILY 07/16/15 09/20/18 thiamine HCl (vitamin B1) [Vitamin 1 tab PO DAILY 07/16/15 09/20/18 B-1] Proventil HFA 2 puff INHALATION .Q6HR #1 inh 08/25/15 09/20/18 pantoprazole 40 mg PO DAILY #30 tabcr 03/26/17 09/20/18 Eliquis 10 mg PO BID #40 tab 18 09/20/18 sucralfate [Carafate] 1 gm PO QACHS #30 tab 10/29/18 Previous Rx's Medication Instructions Recorded Proventil HFA 2 puff INHALATION .Q6HR #1 inh 08/25/15 pantoprazole 40 mg PO DAILY #30 tabcr 03/26/17 Eliquis 10 mg PO BID #40 tab 05/16/18 sucralfate [Carafate] 1 gm PO QACHS #30 tab 10/29/18 Allergies Allergy/AdvReac Type Severity Reaction Status Date / Time ciprofloxacin Allergy Severe Anaphylaxsi Unverified 09/20/18 21:06 s atropine AdvReac Severe BP drops Unverified 09/20/18 21:06 pentazocine AdvReac Unknown Unverified 09/20/18 21:06 IV contrast AdvReac Unknown Hives Uncoded 09/20/18 21:06 General Stated Complaint: Abd Prob MEGHNA: 4 Review of Systems Review of Systems All systems reviewed & are unremarkable except as noted in HPI and below PFSH Social History Smoking/Tobacco Use Status: Current every day Alcohol Intake: current Alcohol Intake frequency: 3 or more drinks per day Drug use: Never Substance use type: does not use Do you feel safe in your relationship?: Yes Exam Narrative Exam Narrative: 1.Const: Well-nourished, Well-developed, appearing stated age 2.Eyes: PERRL, no conjunctival injection, and symmetrical lids. 3.ENT: Atraumatic external nose and ears. Moist MM. Neck: Symmetric, trachea midline, No thyromegaly. 4.CVS: +S1/S2, No murmurs or gallops. Peripheral pulses 2+ and equal in all extremities. Brisk capillary refill in all extremities. 5.RESP: Unlabored respiratory effort. Clear to auscultation bilaterally. No wheezes rales or rhonchi 6.GI: Soft, Nontender/Nondistended, No hepatosplenomegaly. No guarding or rebound. No significant bruising or signs of trauma. No significant epigastric tenderness, periumbilical tenderness, or pain in the right lower or right upper quadrants of the abdomen. Negative Wagner sign, no pain at McBurney's point. No flank or CVA tenderness. 7.MSK: Normocephalic/Atraumatic, Extremities w/o deformity or ttp No cyanosis or clubbing, Normal movement of all extremities. No signs of significant lesion, bruising, or trauma in the left or right lower extremity. No evidence of significant swelling or calf edema. Pulses are intact capillary refill is present brisk 8.Skin: Warm, Dry. No rashes or lesions. 9.Neuro: casino banker II-XII grossly intact. Sensation grossly intact, no focal neurologic deficits. 10.Psych: (AAO) x3. Appropriate mood and affect, mild signs of intoxication Course Vital Signs Pulse 74 10/29/18 16:09 Respiratory Rate 16 10/29/18 16:09 Blood Pressure 172/90 H 10/29/18 16:09 Pulse Oximetry 97 10/29/18 16:09 Pulse 74 10/29/18 16:09 Respiratory Rate 16 10/29/18 16:09 Blood Pressure 172/90 H 10/29/18 16:09 Pulse Oximetry 97 10/29/18 16:09 Oxygen Delivery Method Room Air 10/29/18 16:09 Oxygen Flow Rate 0 10/29/18 16:09 Lab/Test Results Lab/Test Results: Laboratory Tests Range/Units 10/29/18 10/29/18 10/29/18 16:30 16:30 16:30 WBC Cancelled RBC Cancelled Hgb Cancelled Hct Cancelled MCV Cancelled MCH Cancelled MCHC Cancelled RDW Cancelled Plt Count Cancelled MPV Cancelled Immature Gran % Cancelled Neutrophils % Cancelled Band Neutrophils % Cancelled Lymphocytes % Cancelled Atypical Lymphs % Cancelled Monocytes % Cancelled Eosinophils % Cancelled Basophils % Cancelled Metamyelocytes % Cancelled Myelocytes % Cancelled Promyelocytes % Cancelled Absolute Neutrophils Cancelled Absolute Lymphocytes Cancelled Absolute Monocytes Cancelled Absolute Eosinophils Cancelled Absolute Basophils Cancelled Nucleated RBCs Cancelled Differential Comment Cancelled Other Cell Type Cancelled RBC Morphology Cancelled Polychromasia Cancelled Hypochromasia Cancelled Poikilocytosis Cancelled Basophilic Stippling Cancelled Anisocytosis Cancelled Microcytosis Cancelled Macrocytosis Cancelled Spherocytes Cancelled Target Cells Cancelled Tear Drop Cells Cancelled Ovalocytes Cancelled Stomatocytes Cancelled [employer] Bodies Cancelled [place] Cells Cancelled Acanthocytes (Spur) Cancelled Schistocytes Cancelled Sodium Cancelled Potassium Cancelled Chloride Cancelled Carbon Dioxide Cancelled Anion Gap Cancelled BUN Cancelled Creatinine Cancelled Estimated GFR/1.73 m2 Cancelled Glucose Cancelled Calcium Cancelled Total Bilirubin Cancelled AST Cancelled ALT Cancelled Alkaline Phosphatase Cancelled Total Protein Cancelled Albumin Cancelled Lipase Cancelled Ethyl Alcohol Cancelled Range/Units 10/29/18 10/29/18 16:59 16:59 WBC 10.07 RBC 4.48 L Hgb 15.4 Hct 45.2 MCV 100.9 H MCH 34.4 H MCHC 34.1 RDW 14.3 H Plt Count 217 MPV 9.9 Immature Gran % 0.0 Neutrophils % 55.0 Band Neutrophils % 2.0 Lymphocytes % 18.0 Atypical Lymphs % 8 Monocytes % 7.0 Eosinophils % 9.0 Basophils % 0.0 Metamyelocytes % 1.0 Myelocytes % Promyelocytes % Absolute Neutrophils 5.74 Absolute Lymphocytes 2.62 Absolute Monocytes 0.70 Absolute Eosinophils 0.91 H Absolute Basophils 0.00 Nucleated RBCs 1 Differential Comment Manual differential Other Cell Type RBC Morphology See below Polychromasia Hypochromasia Poikilocytosis 1+ Basophilic Stippling Anisocytosis Microcytosis Macrocytosis 1+ Spherocytes Target Cells Tear Drop Cells Ovalocytes Stomatocytes [employer] Bodies [place] Cells Acanthocytes (Spur) Schistocytes Sodium 137 Potassium 4.3 Chloride 100 Carbon Dioxide 27.4 Anion Gap 9.6 BUN 17 Creatinine 1.06 Estimated GFR/1.73 m2 >= 60.00 Glucose 110 H Calcium 9.3 Total Bilirubin 0.8 AST 31 ALT 22 Alkaline Phosphatase 57 Total Protein 7.7 Albumin 3.9 Lipase 91 Ethyl Alcohol 18.2
[2018-10-29 18:34] VITALS: PULSE 75; RESP 16; O2SAT 95
[2018-10-29 18:35] VITALS: PULSE 85; RESP 17; O2SAT 95
[2018-10-29 20:34] LABS: Howell-Jolly Bodies Present; Polychromasia Present
--- NOTE | 2018-11-03 18:19 | NUR.NOTE ---
Pathologist slide review report faxed to Eve Beckwith at [facility] clinic.Nursing Note:
== END 2018-10-29 18:41 | disposition home or self-care (01) ==
PROVIDERS: Emergency Provider Student in an Organized Health Care Education/Training Program
DX: R10.13 Epigastric pain (principal); K21.9 Gastro-esophageal reflux disease without esophagitis; K27.7 Chronic peptic ulcer, site unspecified, without hemorrhage or perforation; F10.20 Alcohol dependence, uncomplicated
CPT/HCPCS: 36415; 80053; 83690; 99283; 80320; 85025; J2270

== ENCOUNTER 2018-12-12 12:42 | Emergency (ER) | payer MEDICARE, OTHER, SELFPAY ==
[2018-12-12 12:48] VITALS: BP 182/111; PULSE 98; RESP 16; TEMP 36.6; O2SAT 98
--- NOTE | 2018-12-12 12:57 | DI.US_ITS ---
SYMPTOMS/DIAGNOSIS: INCREASED RIGHT LEG PAIN DUPLEX VENOUS ULTRASOUND, RIGHT LOWER EXTREMITY: Duplex evaluation of the deep venous system was performed according to the usual protocol. The deep veins are freely compressible throughout to the level of the popliteal veins. There is normal Doppler flow visible throughout and there is excellent flow augmentation with manual calf compression. CONCLUSION: No evidence of deep venous thrombosis.
--- NOTE | 2018-12-12 13:06 | ED.GENADUL_ITS ---
Discharge Plan Disposition Patient Disposition: HOME Condition: Stable Discharge Details Chief Complaint: Vascular Clinical Impression: Chronic pain of lower extremity, Abrasion of toe Primary Care Provider: [facility] ED Provider: Thony Goode Home Meds and New Rx's Prescriptions: Continued thiamine HCl (vitamin B1) [Vitamin B-1] 100 MG tablet 1 tab PO DAILY RF: 0 tamsulosin 0.4 MG capsule 1 tab PO DAILY RF: 0 hydroxyzine HCl 25 MG tablet 25 mg PO HS RF: 0 finasteride 5 MG tablet 5 mg PO DAILY RF: 0 tadalafil [Cialis] 20 MG tablet 1 tab PO PRN PRNRF: 0 Proventil HFA 1 PUFF HFA aerosol inhaler 2 puff Inhalation .Q6HR Qty: 1 RF: 0 sucralfate [Carafate] 1 gram tablet 1 gm PO QACHS Qty: 30 RF: 0 Eliquis 5 MG tablet 5 mg PO BID RF: 0 pantoprazole 40 MG tablet,delayed release (DR/EC) 40 mg PO DAILY Qty: 30 RF: 0 Discharge Instructions Instructions: Abrasion (ED), Leg Pain (ED) Additional Instructions: Please continue to take your medication as prescribed and follow-up with your primary care provider for reassessment of your chronic pain. Return to emergency department for any new or significant worsening of symptoms or any further concerns. To use topical antibiotic ointment on the abrasion and watch for any signs of infection and return immediately or follow-up with primary care for reassessment if this occurs. Referrals: [facility] [Primary Care Provider] - (As needed for reassessment) Discharge Data Discharge Date/Time-TO BE ENTERED AT DEPARTURE: 12/12/18 14:45 Medical Decision Making Patient presenting to the emergency department for chief complaint right lower leg pain. Patient states chronic pain and discomfort but yesterday he started noticing significant increase in pain in his lower leg. Patient does state history of DVTs and has missed 2 doses of Eliquis this week. Patient states that he has had DVTs for greater than 1 year. Patient denies any other symptoms beyond a slight abrasion to the fourth distal toe which has been treated by topical antibiotics. Patient denies any discoloration more than normal of the leg but does state some increase in swelling. Physical exam shows erythema from the knee down with superficial abrasion to fourth distal toe. Patient has diffuse tenderness throughout the right lower leg and behind the knee. Exam is otherwise unremarkable with appropriate cap refill, warm extremity. Review of previous records shows multiple visits to the emergency department for chronic pain issues. Patient was informed that we are not capable of managing his chronic pain but that I was willing to give him single dose of pain medication pending results which he was agreeable to. DVT study of right lower extremity was ordered to look for any worsening symptoms or significant change. While patient was at ultrasound patient's brother who is his investor did inform me that patient does have drug-seeking behavior. He does state concern for patient being prescribed any narcotics given patient's past history. Venous ultrasound of lower extremity shows no DVT. Patient reassessed and stated improvement of pain and discomfort. Patient was informed that he should follow-up with his primary care provider for his chronic pain. Patient was informed to use his normal prescribed medications or [id number] medications that he normally takes for discomfort otherwise. Patient states clear understanding that he would not be receiving any prescription pain medication. I feel that this is patient's continued chronic leg pain. Patient was informed that he should continue on his normally prescribed Eliquis. after discussion of diagnosis and plan of care patient is no further needs, questions, or concerns and states clear understanding to return to the emergency department for any worsening symptoms. HPI General Mode of arrival: wheelchair . Date/Time Provider Initiated Documentation: 12/12/18 12:43 . Limitations to Documentation: no limitations . Information obtained by: patient, family and RN notes reviewed . History of Present Illness 68 year old M presents to the emergency department with the chief complaint of right lower leg pain, described as severe and similar to prior episodes, with intensity rated at 10. and is localized to the right and lower extremity. Patient started experiencing this day(s) (2) and it has been constant. No relieving factors improve symptom(s), Patient did receive the following treatments prior to arrival, Aspirin and other (Tylenol) Related Data Home Medications Medication Instructions Recorded Confirmed finasteride 5 mg PO DAILY 07/16/15 09/20/18 hydroxyzine HCl 25 mg PO HS 07/16/15 09/20/18 tadalafil [Cialis] 1 tab PO PRN PRN 07/16/15 09/20/18 tamsulosin 1 tab PO DAILY 07/16/15 09/20/18 thiamine HCl (vitamin B1) [Vitamin 1 tab PO DAILY 07/16/15 09/20/18 B-1] Proventil HFA 2 puff INHALATION .Q6HR #1 inh 08/25/15 09/20/18 pantoprazole 40 mg PO DAILY #30 tabcr 03/26/17 09/20/18 sucralfate [Carafate] 1 gm PO QACHS #30 tab 10/29/18 Eliquis 5 mg PO BID 12/12/18 12/12/18 Previous Rx's Medication Instructions Recorded Proventil HFA 2 puff INHALATION .Q6HR #1 inh 08/25/15 pantoprazole 40 mg PO DAILY #30 tabcr 03/26/17 sucralfate [Carafate] 1 gm PO QACHS #30 tab 10/29/18 Allergies Allergy/AdvReac Type Severity Reaction Status Date / Time ciprofloxacin Allergy Severe Anaphylaxsi Unverified 12/12/18 12:54 s atropine AdvReac Severe BP drops Unverified 12/12/18 12:54 pentazocine AdvReac Unknown Unverified 12/12/18 12:54 IV contrast AdvReac Unknown Hives Uncoded 12/12/18 12:54 General Stated Complaint: Vascular MEGHNA: 4 Review of Systems Constitutional Denies chills and Denies fever(s) Cardiovascular Denies chest pain, Denies irregular heart rhythm, Reports claudication, Reports leg edema, Denies lightheadedness and Denies dyspnea Respiratory Denies dyspnea Gastrointestinal Denies abdominal pain Musculoskeletal Reports as per HPI [facility] Social History Smoking/Tobacco Use Status: Current every day Tobacco Type: cigarettes Alcohol Intake: current Alcohol Intake frequency: 3 or more drinks per day Drug use: Never Substance use type: does not use Do you feel safe at home: Yes Do you feel safe in your relationship?: Yes Exam Const General: cooperative, healthy appearing, comfortable and no acute distress Orientation: alert, awake and oriented x3 Resp Effort & Inspection: normal respiratory effort and able to speak in complete sentences Auscultation: clear to auscultation bilaterally Cardio Rate: regular rate Rhythm: regular rhythm Heart Sounds: S1 normal and S2 normal Neuro General: alert, awake, oriented x3, moves all extremities and no focal motor deficits Extrem Right lower extremity: normal capillary refill, lower leg Details: erythema, tenderness and pitting edema Details: 1+, ankle Details: tenderness and swelling and foot Details: tenderness, edema, abrasion (Distal fourth toe), vascular exam Details: dorsalis pedis pulse present, posterior tibial pulse present and normal capillary refill; not cool and other (Erythema) Course Vital Signs Temperature 36.6 C 12/12/18 12:48 Pulse 98 H 12/12/18 12:48 Respiratory Rate 16 12/12/18 12:48 Blood Pressure 182/111 H 12/12/18 12:48 Pulse Oximetry 98 12/12/18 12:48 Temperature 36.6 C 12/12/18 12:48 Temperature Source Skin 12/12/18 12:48 Pulse 98 H 12/12/18 12:48 Respiratory Rate 16 12/12/18 12:48 Respiratory Effort Non-Labored 12/12/18 12:52 Blood Pressure 182/111 H 12/12/18 12:48 Blood Pressure Position Sitting 12/12/18 12:48 Pulse Oximetry 98 12/12/18 12:48 Oxygen Delivery Method Room Air 12/12/18 12:48 Oxygen Flow Rate 0 12/12/18 12:48 Pain Level 10 12/12/18 12:48 Lab/Test Results Lab/Test Results: Laboratory Tests Range/Units 12/12/18 12/12/18 12:57 12:57 WBC Cancelled RBC Cancelled Hgb Cancelled Hct Cancelled MCV Cancelled MCH Cancelled MCHC Cancelled RDW Cancelled Plt Count Cancelled MPV Cancelled Immature Gran % Cancelled Neutrophils % Cancelled Band Neutrophils % Cancelled Lymphocytes % Cancelled Atypical Lymphs % Cancelled Monocytes % Cancelled Eosinophils % Cancelled Basophils % Cancelled Metamyelocytes % Cancelled Myelocytes % Cancelled Promyelocytes % Cancelled Absolute Neutrophils Cancelled Absolute Lymphocytes Cancelled Absolute Monocytes Cancelled Absolute Eosinophils Cancelled Absolute Basophils Cancelled Nucleated RBCs Cancelled Differential Comment Cancelled Other Cell Type Cancelled RBC Morphology Cancelled Polychromasia Cancelled Hypochromasia Cancelled Poikilocytosis Cancelled Basophilic Stippling Cancelled Anisocytosis Cancelled Microcytosis Cancelled Macrocytosis Cancelled Spherocytes Cancelled Target Cells Cancelled Tear Drop Cells Cancelled Ovalocytes Cancelled Stomatocytes Cancelled [place] Bodies Cancelled [place] Cells Cancelled Acanthocytes (Spur) Cancelled Schistocytes Cancelled Sodium Cancelled Potassium Cancelled Chloride Cancelled Carbon Dioxide Cancelled Anion Gap Cancelled BUN Cancelled Creatinine Cancelled Estimated GFR/1.73 m2 Cancelled Glucose Cancelled Calcium Cancelled Magnesium Cancelled Total Bilirubin Cancelled AST Cancelled ALT Cancelled Alkaline Phosphatase Cancelled Troponin I Cancelled Total Protein Cancelled Albumin Cancelled
[2018-12-12] MEDS: HYDROcodone 5/Acetaminophen 325 TAB PO (13:14)
[2018-12-12 14:46] VITALS: BP 158/90; PULSE 81; RESP 16; TEMP 36.6; O2SAT 98
[2018-12-12 14:47] VITALS: RESP 16
== END 2018-12-12 14:45 | disposition home or self-care (01) ==
PROVIDERS: Emergency Provider Nurse Practitioner Family
DX: M79.661 Pain in right lower leg (principal); G89.29 Other chronic pain; S90.414A Abrasion, right lesser toe(s), initial encounter; L53.9 Erythematous condition, unspecified; Z79.01 Long term (current) use of anticoagulants; X58.XXXA Exposure to other specified factors, initial encounter
CPT/HCPCS: 80053; 99284; 83735; 84484; 85025; 93971

== ENCOUNTER 2018-12-27 02:04 | Emergency (ER) | payer MEDICARE, OTHER, SELFPAY ==
[2018-12-27 02:04] VITALS: BP 148/102; PULSE 91; RESP 18; TEMP 36.8; O2SAT 99
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
[2018-12-27] MEDS: Normal Saline Flush 10 ML SYR IVP (02:40)
[2018-12-27] MEDS: Acetaminophen 500 MG TAB 1000 MG PO (02:40)
[2018-12-27 03:50] VITALS: BP 149/88; PULSE 85; RESP 16; O2SAT 96
== END 2018-12-27 03:50 | disposition home or self-care (01) ==
LOC: ER 02:51
PROVIDERS: Emergency Provider Emergency Medicine; PCP Internal Medicine
DX: L03.116 Cellulitis of left lower limb (principal); F19.10 Other psychoactive substance abuse, uncomplicated
CPT/HCPCS: 96365; 99284

== ENCOUNTER 2019-08-18 13:44 | Emergency (ER) | payer OTHER, SELFPAY ==
[2019-08-18 13:50] VITALS: BP 184/119; PULSE 108; RESP 22; TEMP 36.8; O2SAT 97
[2019-08-18 14:10] LABS: Bilirubin Negative (Negative); Blood Trace-intact (Negative); Clarity Clear (Clear); Glucose 100 mg/dL (Negative); Ketones Negative (Negative); Leukocyte Esterase Negative (Negative); Nitrite Negative (Negative); Specific Gravity 1.015 (1.005-1.025); pH 8.5 (5-8)
[2019-08-18 14:20] LABS: Bacteria Rare HPF (Negative); Casts 0-2 Hyaline LPF (Negative); Crystals Negative HPF (Negative); Epithelial Cells Few HPF (Negative); Mucus Trace (Negative); WBC 0-2 HPF (0-5)
[2019-08-18] MEDS: Normal Saline 1,000 ML 1000 ML IV (14:20)
[2019-08-18 14:21] LABS: C & S Indicated? No
[2019-08-18] MEDS: Normal Saline Flush 10 ML SYR IVP (14:21)
[2019-08-18] MEDS: Ketorolac 30 MG/ML VIAL 15 MG IVP (14:21)
--- NOTE | 2019-08-18 14:52 | ED.GENADUL_ITS ---
Discharge Plan Disposition Patient Disposition: HOME Condition: Improving Discharge Details Chief Complaint: FlankPain Clinical Impression: Acute right flank pain Primary Care Provider: [facility] ED Provider: Gómez Glaser Home Meds and New Rx's Prescriptions: No Action tamsulosin 0.4 MG capsule 1 tab PO DAILY RF: 0 albuterol sulfate [Proventil HFA] 1 PUFF HFA aerosol inhaler 2 puff Inhalation .Q6HR Qty: 1 RF: 0 Eliquis 5 MG tablet 5 mg PO BID RF: 0 trazodone 100 mg Tablet 100 mg PO QHS PRNRF: 0 Discharge Instructions Instructions: Flank Pain (ED) Additional Instructions: 1. Drink plenty of fluids. 2. Continue all medications as prescribed. 3. Acetaminophen 1000mg every 4 hours (up to 5 time a day) as needed for fever or pain. 4. Warm compresses to the flank. Activity as tolerated. Return to the Emergency Department (ED) if your condition worsens, does not improve as expected, or for ANY other concerns. Specifically, return if you have new or uncontrolled pain, worsening fever, difficulty breathing, vomiting, or are unable to drink fluids. Discharge Data Discharge Date/Time-TO BE ENTERED AT DEPARTURE: 08/18/19 16:39 Medical Decision Making 69-year-old gentleman with history of chronic pain presents with acute onset of right flank pain since early this morning. Describes initial onset is intermittent and associate with positional change. However his pain became more unremittent and refractory to outpatient management. Exam significant for focal right flank tenderness which reproduced subjective pain. Moderate clinical improvement with IV ketorolac. Bedside ultrasound equivocal for evidence of hydronephrosis or UVJ stone. Because of his atypical pain, renal colic CT ordered and ultimately nondiagnostic. Treated with additional acetaminophen and discharged home with a plan for OTC analgesia and outpatient follow-up as needed. Patient and brother given usual customary return instructions at time of discharge. Medical Records Medical records reviewed: Yes I reviewed the patient's medical records. Imaging Data Radiologic Study: Attestation: I personally reviewed and interpreted this imaging study as follows: Imaging: CT Scan (Renal colic CT) My impression: No acute hydronephrosis or nephrolithiasis. No explanation for patient's acute right-sided pain. Images interpreted independently contemporaneously by myself. HPI 69 gentleman with a past medical history of alcohol abuse, chronic pain, DVT, GERD, and GI bleeds. Presents for evaluation of acute onset right flank pain. He describes developing flank pain this morning which was initially worse with positional change. However, after a few hours of intermittent pain, his pain is been now more constant. Pain is been located on his right side and has been waxing waning since onset. He has had associated nausea with no emesis. Pain is worsened by positional change and red palpation. He also has a sensation of urinary urgency and frequency. He denies fever/chills, chest pain/dyspnea, generalized abdominal pain, hematuria, or change in bowel habits. He has no history of previous similar symptoms and has had no recent trauma. General Date/Time Provider Initiated Documentation: 08/18/19 13:49 . Related Data Home Medications Medication Instructions Recorded Confirmed tamsulosin 1 tab PO DAILY 07/16/15 08/18/19 albuterol sulfate [Proventil HFA] 2 puff INHALATION .Q6HR #1 inh 08/25/15 08/18/19 Eliquis 5 mg PO BID 12/12/18 08/18/19 trazodone 100 mg PO QHS PRN 08/18/19 08/18/19 Previous Rx's Medication Instructions Recorded albuterol sulfate [Proventil HFA] 2 puff INHALATION .Q6HR #1 inh 08/25/15 Allergies Allergy/AdvReac Type Severity Reaction Status Date / Time ciprofloxacin Allergy Severe Anaphylaxsi Unverified 12/27/18 02:12 s atropine AdvReac Severe BP drops Unverified 12/27/18 02:12 pentazocine AdvReac Unknown Unverified 12/27/18 02:12 IV contrast AdvReac Unknown Hives Uncoded 12/27/18 02:12 General Stated Complaint: FlankPain MEGHNA: 3 Review of Systems All systems reviewed & are unremarkable except as noted in HPI and below PFSH Medical History Alcohol abuse (Chronic) Arthritis (Chronic) Chronic pain (Chronic) DVT (deep venous thrombosis) (Chronic) GERD (gastroesophageal reflux disease) (Chronic) GI bleed (Chronic) Wernicke encephalopathy (Chronic) Surgical History H/O arthroscopic knee surgery (Inactive) Social History Smoking/Tobacco Use Status: Current every day Tobacco Type: cigarettes Alcohol Intake: current Alcohol Intake frequency: 3 or more drinks per day Drug use: Never Substance use type: does not use Do you feel safe at home: Yes Do you feel safe in your relationship?: Yes Exam Narrative Exam Narrative: Nursing note and vital signs have been reviewed and noted. GENERAL: alert, active, no acute distress, well -hydrated, well-nourished HEENT: atraumatic/normocephalic, PERRLA, EOMI, conjunctiva clear, external ears/canals normal, nasal mucosa normal NECK: supple, full range of motion, no mass, normal lymphadenopathy, no thyromegaly CARDIOVASCULAR: RRR, no murmurs, nl pulses, no edema PULMONARY: nl effort, no audible wheezing or stridor, nl breath sounds with no focal deficit. no chest wall tenderness ABDOMEN: soft, right flank tenderness. Palpation reproduced subjective pain., non-distended, no mass, no organomegaly; EXTREMITY: normal muscle tone, all joints with FROM, no deformity or tenderness SKIN: no exanthem appreciated NEURO: gross motor exam normal, normal stance and gait PSYCH: alert and oriented, Course Vital Signs Vital signs: Vital Signs Temperature 98.2 F 08/18/19 13:50 Pulse 108 H 08/18/19 13:50 Respiratory Rate 22 08/18/19 13:50 Blood Pressure 184/119 H 08/18/19 13:50 Pulse Oximetry 97 08/18/19 13:50 Temperature 98.2 F 08/18/19 13:50 Temperature Source Skin 08/18/19 13:50 Pulse 108 H 08/18/19 13:50 Respiratory Rate 22 08/18/19 13:50 Blood Pressure 184/119 H 08/18/19 13:50 Blood Pressure Position Sitting 08/18/19 13:50 Pulse Oximetry 97 08/18/19 13:50 Oxygen Delivery Method Room Air 08/18/19 13:50 Oxygen Flow Rate 0 08/18/19 13:50 End Tidal Co2 8 08/18/19 13:50 Lab/Test Results Lab/Test Results: Laboratory Tests Range/Units 08/18/19 13:56 Urine Color (Yellow) Yellow Urine Clarity (Clear) Clear Urine pH (5-8) 8.5 H Ur Specific [place] (1.005-1.025) 1.015 Urine Protein (Negative) mg/dL Trace H Urine Ketones (Negative) mg/dL Negative Urine Blood (Negative) Trace-intact H Urine Nitrite (Negative) Negative Urine Bilirubin (Negative) Negative Urine Urobilinogen (Up TO 0.2) EU/dL 1.0 H Ur Leukocyte Esterase (Negative) Negative Urine RBC (0-2) HPF 3-5 H Urine WBC (0-5) HPF 0-2 Ur Epithelial Cells (Negative) HPF Few Urine Crystals (Negative) HPF Negative Urine Bacteria (Negative) HPF Rare Urine Casts (Negative) LPF 0-2 hyaline Urine Mucus (Negative) Trace Ur Culture Indicated? No Urine Glucose (Negative) mg/dL 100
--- NOTE | 2019-08-18 15:31 | DI.CT_ITS ---
EXAM: CT RENAL COLIC WO CLINICAL HISTORY: RIGHT-SIDED FLANK PAIN TECHNIQUE: Noncontrast FINDINGS: There is thickening of the distal esophagus. The lung bases are clear. There is no evidence of hydro nephrosis or renal calculi. Urinary bladder shows mild wall thickening. The prostate is mildly enla rged. No bladder calculi are seen. Surgical clips are noted in the right paraspinal region. There are calcifications in the pancreas. There are stable low-density lesions in the liver. The gallblad rosemary and adrenals are unremarkable. 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 Increased stool i s seen in the descending colon. There is no wall thickening or inflammatory change. Appendix appear s normal. There is no small bowel dilatation. The aorta shows calcification but is normal in diamet er. There are severe degenerative changes in the spine, greatest at L2-3. IMPRESSION: No evidence of urinary tract calculi or hydronephrosis. There is bladder wall thickening but no foca l mass.
[2019-08-18] MEDS: Acetaminophen 500 MG TAB 1000 MG PO (16:04)
[2019-08-18 16:36] VITALS: BP 182/115; PULSE 98; RESP 18; TEMP 37.2; O2SAT 97
== END 2019-08-18 16:39 | disposition home or self-care (01) ==
PROVIDERS: Emergency Provider Emergency Medicine; PCP Physician Assistant Medical
DX: M54.5 Low back pain (principal); R11.0 Nausea
CPT/HCPCS: 96361; 96374; 99284; 74176; 81003; 81015; J1885

== ENCOUNTER 2020-03-12 14:48 | Emergency (ER) | payer OTHER, SELFPAY ==
--- NOTE | 2020-03-12 14:52 | W.ED.GENAD ---
Discharge Plan Disposition Patient Disposition: HOME Condition: Stable Discharge Details Chief Complaint: Orthopedic Clinical Impression: Chronic pain, Arthritis of hip Primary Care Provider: Joey Ga ED Provider: Lilian Koo Home Meds and New Rx's Prescriptions: Continued tamsulosin 0.4 MG capsule 1 tab PO DAILY RF: 0 albuterol sulfate [Proventil HFA] 1 PUFF HFA aerosol inhaler 2 puff Inhalation .Q6HR Qty: 1 RF: 0 Eliquis 5 MG tablet 5 mg PO BID RF: 0 No Action lisinopril 10 mg Tablet 10 mg PO DAILY RF: 0 Discharge Instructions Instructions: Chronic Pain (ED) Additional Instructions: Encourage water intake. Tylenol as needed for pain. He may try topical options such as Lidoderm patches to help with your discomfort. Your left hip had previously been imaged significant arthritis. We will place a referral for orthopedics, please call number listed below tomorrow to schedule follow-up appointment. A referral for physical therapy is attached. You may call Saturday to schedule follow-up appointment. If you develop fever/chills, increased pain, or other new/worsening symptom please seek care urgently once again. Otherwise, please continue with your medications as previously prescribed. Stand Alone Forms: Physical Therapy Referral Referrals: Joey Ga [Primary Care Provider] - Godwin Guerrero MD [ [facility] STAFF PHYSICIAN] - Discharge Data Discharge Date/Time-TO BE ENTERED AT DEPARTURE: 03/12/20 15:30 Medical Decision Making Patient is a pleasant 69 year old male, well known to myself, presenting with c/c of BLE pain. Patient states that he has chronic pain in his lower extremities associated with trauma from [place]. He notes that hte right calf is chronically discolored and atrophied without recent change. States that he has fairly diffuse pain with no localized juan of tenderness. He denies fevers/chills, change in the skin, sensory changes, recent trauma. Patient has history of DVT. His brother, with whom he resides, states that he ensures that patient has taken his medications, has not had any missed doses of his Eliquis. Patient also states he has hip pain, again without any new or alarming symptoms. STates that this pain has also been there for several years. States he has not been seen for this previously. Patient is requesting pain medication. He has not taken anything for his pain thus far. Denies CP, SOB, fevers/chills, travel, change in activity level. PMH of DVT, chronic pain, arthritis, ETOH abuse, Wernicke encephalopathy. On exam, patient appears chronically ill but this is baseline compared ot previous visits. He has atrophy of the RLE which he states is chronic and unchanged. He has circumfrencial erythema/darkening of the calf. This is not warm or tender to palpation. Negative Homanns sign. No pain with palpation. Sensation intact, 2+ distal pulses with brisk capillary refill. He states that the skin color changes and size are baseline. I do not see evidence to suggest DVT or infection. Exam of the LLE signifciant for pain with IR And ER of the hip. No axial loading pain. No erythema, warmth, swelling or evidence of infection. Brisk capillary refill, no calf pain. Patient offered Tylenol which he has refused. He has accepted Lidoderm patch. Reviewed previous imaging, patient did have xr of left him in 2014 at which time patient had notable arthritis. Spoke with patient's brother who advised that he has hx of opiate addiction. He is concerned that this is what [facility] came in for. Brother did bring him in. States that patient drinks about 2 bottles of wine/night an dis limited on his ETOH intake. Patient is requesting narcotics at this time. Brother agrees that the appearance of his BLE is baseline and he has not note a change in his strength/ambulation. Patient and I did discuss chronic pain management. Patient seems upset about the nonopiate options. However, we did discuss the risks associated with narcotics at length as well as why I am concerned about prescribing these medications at this time. We did discuss emergent changes in his chronic leg pain that should bring him back to [facility] ED again. I advised f/u with orthopedics for his arthritic chadnge in his left hip. Also advised f/u with PCP to discuss chronic pain fruther. Will also refer to PT. All of his questions and his concerns were addressed, he is in agreement iwth this plan. HPI General Mode of arrival: ambulatory (crutches). Date/Time Provider Initiated Documentation: 03/12/20 14:48. Limitations to Documentation: no limitations. Information obtained by: patient, family (brother) and RN notes reviewed. History of Present Illness 69 year old M presents to the emergency department with the chief complaint of right lower extremity pain, left hip pain, described as severe and similar to prior episodes (chronic pain right RLE), with intensity rated at 9. Quality is described as aching, and is localized to the left, right and lower extremity. Patient reports no radiation. Patient started experiencing this year(s) and it has been intermittent. No relieving factors improve symptom(s), Medication worsens symptoms . Patient notes no other symptoms.; denies chest pain, cough, fever/chills, rash and weakness. Patient did receive the following treatments prior to arrival, none Related Data Home Medications Medication Instructions Recorded Confirmed tamsulosin 1 tab PO DAILY 07/16/15 03/12/20 albuterol sulfate [Proventil HFA] 2 puff INHALATION .Q6HR #1 inh 08/25/15 03/12/20 Eliquis 5 mg PO BID 12/12/18 03/12/20 lisinopril 10 mg PO DAILY 03/12/20 03/12/20 Previous Rx's Medication Instructions Recorded albuterol sulfate [Proventil HFA] 2 puff INHALATION .Q6HR #1 inh 08/25/15 Allergies Allergy/AdvReac Type Severity Reaction Status Date / Time ciprofloxacin Allergy Severe Anaphylaxsi Unverified 03/12/20 15:21 s atropine AdvReac Severe BP drops Unverified 03/12/20 15:21 pentazocine AdvReac Unknown Unverified 03/12/20 15:21 IV contrast AdvReac Unknown Hives Uncoded 03/12/20 15:21 General MEGHNA: 3 Review of Systems Constitutional Constitutional: Reports as per HPI, Denies chills, Denies fever(s), Denies headache(s) and Denies weakness ENT Ears, Nose, Mouth, and Throat: Denies headache(s) Cardiovascular Cardiovascular: Reports as per HPI Respiratory Respiratory: Reports as per HPI and Denies cough Musculoskeletal Musculoskeletal: Reports as per HPI and Denies tingling Integumentary/Breasts Skin/Breast: Reports as per HPI, Denies rash and Denies wounds Neurologic Neurologic: Reports as per HPI, Denies headache(s), Denies tingling, Denies paresthesias and Denies weakness [facility] Medical History (Updated 03/12/20 @ 15:26 by ABDULKADIR Huang) Alcohol abuse (Chronic) Arthritis (Chronic) Chronic pain (Chronic) DVT (deep venous thrombosis) (Chronic) GERD (gastroesophageal reflux disease) (Chronic) GI bleed (Chronic) Wernicke encephalopathy (Chronic) Surgical History H/O arthroscopic knee surgery (Inactive) Social History Smoking/Tobacco Use Status: Current every day Tobacco Type: cigarettes Alcohol Intake: current Alcohol Intake frequency: 3 or more drinks per day Drug use: Never Substance use type: does not use Do you feel safe at home: Yes Do you feel safe in your relationship?: Yes Exam Const General: cooperative, comfortable, no acute distress, well developed, disheveled and ill appearing chronically Nutritional Appearance: average body habitus and well nourished Orientation: alert and awake Resp Effort & Inspection: normal respiratory effort, able to speak in complete sentences and no respiratory distress Cardio Rate: regular rate Rhythm: regular rhythm Skin General skin exam: erythema (nontender, darkening/redness of RLE, not warm ) Neuro General: patient alert and patient awake Cognition: normal cognition Speech: speech normal Gait: antalgic (appears baseline for patient) Motor: muscle tone normal throughout Sensory Exam: no sensory deficits noted Extrem General: no joint enlargement, no pedal edema and no calf tenderness Right lower extremity: full ROM, normal capillary refill, knee Details: normal to inspection and normal ROM; no tenderness and no swelling, lower leg (circumfrencial darkening/redness of the skin, appears chronic) Details: erythema (as above, chronic discoloration, reported to be unchanged from baseline) and no edema; no localized swelling, no palpable cords, no ecchymosis, no crepitus and no deformity, ankle Details: normal to inspection and normal ROM; no tenderness, no swelling, no ecchymosis, no crepitus and achilles tendon exam normal and foot Details: normal capillary refill, toes with normal ROM, no edema, vascular exam Details: dorsalis pedis pulse present and normal capillary refill and motor-sensory exam Details: light-touch normal; no tenderness and no unusual warmth; no cyanosis, no edema and joint enlargement noted Left lower extremity: normal to inspection, full ROM, normal capillary refill, no joint enlargement, hip/thigh Details: normal to inspection, tenderness Location: of the hip (with ER and IR, no pain with axial loading), normal ROM and other (no pain with palpation); no swelling, no lacerations, no ecchymosis, no crepitus, no deformity and no unusual warmth, knee Details: normal to inspection, lower leg Details: no edema; no tenderness, no localized swelling and no palpable cords and foot Details: vascular exam Details: dorsalis pedis pulse present and normal capillary refill; no edema Psych Appearance: grossly normal and well kempt Mental Status: mental status grossly normal Speech and Movement: speech and movement normal
[2020-03-12 14:55] VITALS: BP 168/100; PULSE 117; RESP 18; TEMP 37.1; O2SAT 98
[2020-03-12] MEDS: Lidocaine 5% Patch 1 PATCH TP (15:16)
== END 2020-03-12 15:30 | disposition home or self-care (01) ==
PROVIDERS: Emergency Provider Physician Assistant; PCP Physician Assistant Medical
DX: M79.604 Pain in right leg (principal); M79.605 Pain in left leg; G89.29 Other chronic pain; M62.561 Muscle wasting and atrophy, not elsewhere classified, right lower leg; F11.11 Opioid abuse, in remission; Z79.01 Long term (current) use of anticoagulants; Z86.718 Personal history of other venous thrombosis and embolism
CPT/HCPCS: 99282; 99283

== ENCOUNTER 2020-04-05 03:20 | Outpatient (CLI) | payer OTHER, SELFPAY ==
[2020-04-05 16:01] LABS: HCT 41.9 % (40.0-50.0); HGB 13.6 g/dL (13.5-17.5); MCH 32.9 pg (27.0-33.0); MCHC 32.5 % (32.0-36.0); MCV 101.5 fL (80-95); MPV 10.7 fL (8.0-11.0); Platelet Count 244 10^3/uL (130-400); RBC 4.13 10^6/uL (4.36-5.78); RDW 14.5 % (11.8-14.1); RDW-SD 53.8 fL; WBC 9.15 10^3/uL (4.4-10.8)
[2020-04-05 17:14] LABS: ALT 26 U/L (16-63); AST 24 U/L (15-37); Albumin 3.7 g/dL (3.4-5.0); Alkaline Phosphatase 72 U/L (46-116); Anion Gap 2.6 mmol/L (3-11); BUN 19 mg/dL (7-18); CO2 30.4 mmol/L (21.0-32.0); CREATININE 0.97 mg/dL (0.70-1.30); Chloride 104 mmol/L (98-107); Glucose 113 mg/dL (74-106); Potassium 4.8 mmol/L (3.5-5.1); Sodium 137 mmol/L (136-145)
== END 2020-04-05 03:40 ==
PROVIDERS: PCP Physician Assistant Medical; Visit Provider Physician Assistant Medical
DX: I82.509 Chronic embolism and thrombosis of unspecified deep veins of unspecified lower extremity (principal); Z51.81 Encounter for therapeutic drug level monitoring
CPT/HCPCS: 36415; 80053; 85027

== ENCOUNTER 2020-04-12 12:45 | Emergency (ER) | payer OTHER, SELFPAY ==
[2020-04-12 12:33] VITALS: BP 175/108; PULSE 108; RESP 14; TEMP 36.8; O2SAT 94
--- NOTE | 2020-04-12 12:45 | DI.RAD_ITS ---
EXAM: XR TIB/FIB RT CLINICAL HISTORY: swelling, reddness. TECHNIQUE: 2D digital imaging was performed. COMPARISON: ECG EKG from 05/05/2018 FINDINGS: BONES: No acute fracture is present. No bony destructive lesion is seen. Note is made of a right tota l knee replacement. SOFT TISSUE: Normal. IMPRESSION: No acute fracture or dislocation. DATA REPOSITORY: RADIATION DOSE DELIVERED:
--- NOTE | 2020-04-12 12:45 | DI.US_ITS ---
EXAM: US LOWER EXTREMITY VENOUS RT CLINICAL HISTORY: Swelling, erythema TECHNIQUE: Right lower extremity venous ultrasound performed using grayscale, color-flow, and spectr al Doppler analysis. COMPARISON: US US lower extremity venous RT from 12/12/2018 FINDINGS: The right common femoral, femoral and popliteal veins demonstrate normal compressibility, augmentatio n, and color Doppler. The posterior tibial veins are patent. The saphenofemoral junction is unremark able. There is no evidence of a Izaguirre cyst. The soft tissues are unremarkable. IMPRESSION: No DVT. DATA REPOSITORY:
--- NOTE | 2020-04-12 12:45 | DI.RAD_ITS ---
EXAM: XR HIP LT COMPLETE AP PELVIS CLINICAL HISTORY: left hip pain. TECHNIQUE: 2D digital imaging was performed. CR ABDOMEN 2 VIEW FLAT, UPRIGHT from 11/14/2017 FINDINGS: BONES: No acute fracture is present. No bony destructive lesion is seen. JOINTS: No dislocation present. Moderate degenerative changes are seen in the left hip. SOFT TISSUE: Normal. IMPRESSION: No acute fracture or dislocation. DATA REPOSITORY: RADIATION DOSE DELIVERED:
--- NOTE | 2020-04-12 13:18 | ED.GENADUL_ITS ---
Discharge Plan Disposition Patient Disposition: HOME Condition: Stable Discharge Details Chief Complaint: Orthopedic Clinical Impression: Cellulitis of right lower extremity, Degenerative joint disease (DJD) of hip Primary Care Provider: Joey Ga ED Provider: Ilnaa Shaw Home Meds and New Rx's Prescriptions: New cephalexin 500 mg tablet 500 mg PO BID 10 Days Qty: 20 RF: 0 diclofenac potassium 50 mg tablet 50 mg PO BID PRN (Reason: pain) Qty: 10 RF: 0 No Action tamsulosin 0.4 MG capsule 1 tab PO DAILY RF: 0 Eliquis 5 MG tablet 5 mg PO BID RF: 0 lisinopril 10 mg Tablet 10 mg PO DAILY RF: 0 Discharge Instructions Instructions: Cellulitis (ED), Hip Pain (ED) Additional Instructions: Follow up with primary care provider in 3-5 days. Return to ED sooner if any worsening or concerns. Increase oral fluids. Please take Tylenol or Ibuprofen with food every 4-6 hours as needed for pain and swelling. Take medications as prescribed. Return to the ED for any worsening redness, fever, swelling. Referrals: [facility] CL[facility]IC,[facility] [OTHER] - 1 week Joey Ga [Primary Care Provider] - Jos Perales [ [facility] STAFF PHYSICIAN] - Discharge Data Discharge Date/Time-TO BE ENTERED AT DEPARTURE: 04/12/20 16:09 Medical Decision Making 9-year-old male presents to the ER with chief complaint of right lower extremity tenderness, erythema, warmth which appears to be chronic, and left hip pain. He denies any recent trauma. He denies any fever chills or any other complaints. He is a current every day smoker. Patient was seen in ED on March 12, 2020 for similar complaint. He was offered Tylenol which he refused at that time and was given a Lidoderm patch. Patient was given a referral at that time for physical therapy. Patient does have a history of alcohol abuse, arthritis, chronic pain, DVT, GERD, GI bleeding, Wernicke's encephalopathy. At this time labs ordered including CBC, CMP, lactate, blood cultures to rule out cellulitis. X-ray left hip and pelvis ordered, ultrasound venous Doppler right lower extremity to rule out DVT ordered. And x-rays of right foot and tib-fib. 1327: Preliminary result given from [facility], negative for DVT in the right lower extremity. Exam(s) a RAD:XR foot RT complete This report is currently processing and HAS NOT BEEN OFFICIALLY SIGNED BY THE PHYSICIAN - ESTIMATED TIME OF APPROVAL IS 04/12/2020 14:12. EXAM: XR FOOT RT COMPLETE CLINICAL HISTORY: r/o gas, injury. TECHNIQUE: 2D digital imaging was performed. COMPARISON: No exams were available for comparison FINDINGS: BONES: No acute fracture is present. No bony destructive lesion is seen. JOINTS: No dislocation present. SOFT TISSUE: Normal. IMPRESSION: No acute fracture or dislocation. EXAM: US LOWER EXTREMITY VENOUS RT CLINICAL HISTORY: Swelling, erythema TECHNIQUE: Right lower extremity venous ultrasound performed using grayscale, color-flow, and spectral Doppler analysis. COMPARISON: US US lower extremity venous RT from 12/12/2018 FINDINGS: The right common femoral, femoral and popliteal veins demonstrate normal compressibility, augmentation, and color Doppler. The posterior tibial veins are patent. The saphenofemoral junction is unremarkable. There is no evidence of a Izaguirre cyst. The soft tissues are unremarkable. IMPRESSION: No DVT. Patient received 1 g of ceftriaxone IV piggyback in department. Prescription given for diclofenac for pain and cephalexin 500 mg twice a day for suspected cellulitis. It does appear also that this patient has chronic erythema noted to his right lower extremity. Discussed home care and follow-up with PCP, verbalized understanding. Patient is continued to request pain medication throughout stay. Did give 2 mg morphine IV and 1 g of Tylenol IV piggyback. Patient prescribed anti-inflammatory medication diclofenac for arthritis and degenerative type bony abnormalities upon discharge. A referral was placed for follow-up with pain clinic. HPI General Mode of arrival: EMS . Date/Time Provider Initiated Documentation: 04/12/20 12:49 . Limitations to Documentation: no limitations . Information obtained by: patient . HPI Narrative: 69-year-old male presents to the ER with chief complaint of right lower extremity tenderness, erythema, warmth which appears to be chronic, and left hip pain. He denies any recent trauma. He denies any fever chills or any other complaints. He is a current every day smoker. Patient was seen in ED on March 12, 2020 for similar complaint. He was offered Tylenol which he refused at that time and was given a Lidoderm patch. Patient was given a referral at that time for physical therapy. Patient does have a history of alcohol abuse, arthritis, chronic pain, DVT, GERD, GI bleeding, Wernicke's encephalopathy. Related Data Home Medications Medication Instructions Recorded Confirmed tamsulosin 1 tab PO DAILY 07/16/15 04/12/20 Eliquis 5 mg PO BID 12/12/18 04/12/20 lisinopril 10 mg PO DAILY 03/12/20 04/12/20 cephalexin 500 mg PO BID 10 Days #20 tab 04/12/20 diclofenac potassium 50 mg PO BID PRN #10 tab 04/12/20 Previous Rx's Medication Instructions Recorded cephalexin 500 mg PO BID 10 Days #20 tab 04/12/20 diclofenac potassium 50 mg PO BID PRN #10 tab 04/12/20 Allergies Allergy/AdvReac Type Severity Reaction Status Date / Time ciprofloxacin Allergy Severe Anaphylaxsi Unverified 04/12/20 12:36 s atropine AdvReac Severe BP drops Unverified 04/12/20 12:36 pentazocine AdvReac Unknown Unverified 04/12/20 12:36 IV contrast AdvReac Unknown Hives Uncoded 04/12/20 12:36 General Stated Complaint: Orthopedic MEGHNA: 3 Review of Systems Narrative: Constitutional: Negative for weight loss, alert and oriented, well groomed, normal body habitus, appears comfortable. HEENT: Denies trauma, headaches, blurry vision, nasal discharge, sore throat, trouble swallowing. Chest: Denies chest pain, palpitations, irregular rhythm, hypertension. Respiratory: Denies Shortness of breath, cough, hemoptysis. GI: Denies abdominal pain, nausea, vomiting, diarrhea, constipation. : Denies dysuria, hematuria, flank pain, rectal bleeding. Neuro: Denies dizziness, blurry vision, weakness, syncope, headache or facial numbness. Hematologic: Denies easy bruising, intolerance to heat or cold, hair loss. [facility] Medical History Alcohol abuse (Chronic) Arthritis (Chronic) Chronic pain (Chronic) DVT (deep venous thrombosis) (Chronic) GERD (gastroesophageal reflux disease) (Chronic) GI bleed (Chronic) Wernicke encephalopathy (Chronic) Surgical History H/O arthroscopic knee surgery (Inactive) Social History Smoking/Tobacco Use Status: Current every day Tobacco Type: cigarettes Alcohol Intake: current Alcohol Intake frequency: 3 or more drinks per day Drug use: Never Substance use type: does not use Do you feel safe at home: Yes Do you feel safe in your relationship?: Yes Exam Narrative Exam Narrative: Constitutional: Alert and oriented x3. Disheveled. Appears older than stated age. Normal body habitus. Head: Normocephalic, no trauma. Eyes: Pupils PERRLA, Red reflex noted, EOM's intact. Eyelids symmetrical without lesions, discharge, or swelling. ENT: Bilateral TM's WNL, External ear normal to inspection, no mastoid TTP, swelling, or erythema, Nasal turbinates WNL, no nasal discharge. Normal dentition, Posterior pharynx WNL, no exudate. Chest: RRR, Normal S1, S2, distal pulses intact. Resp: Lungs clear to auscultation bilaterally, no wheezes, rales, or rhonchi. Musculoskeletal: Uses arm canes bilaterally on a normal basis. Does have erythema and superficial excoriations noted to the dorsal aspect of the right great toe, anterior yancey, dorsal aspect of the foot. Nontender to palpation to the bilateral pelvic iliac crests. Skin: Does have some anterior wounds noted to the right lower extremity.. Capillary refill less than 2 sec. Neurologic: Cranial nerves II-XII intact. Alert and oriented x 3. DTR's intact. Hematologic/Lymphatic: No ecchymosis, no lymphadenopathy. Course Vital Signs Vital signs: Vital Signs Temperature 36.8 C 04/12/20 12:33 Pulse 108 H 04/12/20 12:33 Respiratory Rate 14 04/12/20 12:33 Blood Pressure 175/108 H 04/12/20 12:33 Pulse Oximetry 94 L 04/12/20 12:33 Temperature 36.8 C 04/12/20 12:33 Temperature Source Tympanic 04/12/20 12:33 Pulse 108 H 04/12/20 12:33 Respiratory Rate 14 04/12/20 12:33 Respiratory Effort Non-Labored 04/12/20 12:35 Blood Pressure 175/108 H 04/12/20 12:33 Blood Pressure Position Sitting 04/12/20 12:33 Pulse Oximetry 94 L 04/12/20 12:33 Oxygen Delivery Method Room Air 04/12/20 12:33 Oxygen Flow Rate 0 04/12/20 12:33 Pain Level 9 04/12/20 12:33 Lab/Test Results Lab/Test Results: 04/12/20 12:54 Blood Blood Culture - Pending 04/12/20 12:54 Blood Blood Culture - Pending
--- NOTE | 2020-04-12 13:48 | DI.RAD_ITS ---
EXAM: XR FOOT RT COMPLETE CLINICAL HISTORY: r/o gas, injury. TECHNIQUE: 2D digital imaging was performed. COMPARISON: No exams were available for comparison FINDINGS: BONES: No acute fracture is present. No bony destructive lesion is seen. JOINTS: No dislocation present. SOFT TISSUE: Normal. IMPRESSION: No acute fracture or dislocation. DATA REPOSITORY: RADIATION DOSE DELIVERED:
--- NOTE | 2020-04-12 14:03 | NUR.NOTE ---
pt returned from imaging after approx 35 mins, two IV attempts made, one in R ac and one in L forearm without success, able to only obtain purple top tube. apparent scar tissue. pt extremely anxious.
[2020-04-12] MEDS: Normal Saline 1,000 ML 250 ML IV (14:12)
[2020-04-12 14:22] VITALS: BP 151/97; PULSE 85; RESP 18; O2SAT 98
[2020-04-12 14:23] LABS: Lactate 1.5 mmol/L (0.6-1.4)
[2020-04-12 14:24] LABS: Abs Immature Grans 0.08 10^3/uL (0.0-0.06); Absolute Basophil Count 0.12 10^3/uL (0.0-0.2); Absolute Eosinophil Count 1.08 10^3/uL (0.0-0.7); Absolute Lymphocyte Count 1.89 10^3/uL (1.2-3.4); Absolute Monocyte Count 1.39 10^3/uL (0.1-0.8); Absolute Neutrophil Count 6.17 10^3/uL (1.2-6.7); Basophils % 1.1; Eosinophils % 10.1; HCT 43.2 % (40.0-50.0); HGB 14.5 g/dL (13.5-17.5); Immature Grans % 0.7; Lymphocytes % 17.6; MCH 33.4 pg (27.0-33.0); MCHC 33.6 % (32.0-36.0); MCV 99.5 fL (80-95); Neutrophils % 57.5; Nucleated RBC 0 %; Platelet Count 274 10^3/uL (130-400); RBC 4.34 10^6/uL (4.36-5.78); RDW 14.2 % (11.8-14.1); WBC 10.73 10^3/uL (4.4-10.8)
[2020-04-12 14:39] LABS: ALT 27 U/L (16-63); AST 27 U/L (15-37); Albumin 3.8 g/dL (3.4-5.0); Alkaline Phosphatase 77 U/L (46-116); Anion Gap 9.3 mmol/L (3-11); BUN 19 mg/dL (7-18); Bilirubin, Total 0.8 mg/dL (0.2-1.0); CO2 29.7 mmol/L (21.0-32.0); CREATININE 1.13 mg/dL (0.70-1.30); Calcium 9.4 mg/dL (8.5-10.1); Chloride 99 mmol/L (98-107); Glucose 103 mg/dL (74-106); Potassium 4.9 mmol/L (3.5-5.1); Sodium 138 mmol/L (136-145); Total Protein 7.5 g/dL (6.4-8.2)
[2020-04-12] MEDS: Nicotine 14 MG/24 HR PATCH TD (14:55)
[2020-04-12] MEDS: cefTRIAXone 1 GM/50 ML BAG IVPB (14:56)
[2020-04-12] MEDS: ACETAMINOPHEN 1,000 MG/100 ML BTL 400 MG IVPB (15:24)
[2020-04-12 15:47] VITALS: BP 172/87; PULSE 82; RESP 18; O2SAT 100
--- NOTE | 2020-04-13 14:36 | NUR.NOTE ---
04/13 [id number] Patient's caregiver phoned for information regarding patients visit on 04/12.
== END 2020-04-12 16:09 | disposition home or self-care (01) ==
PROVIDERS: Emergency Provider Registered Nurse Emergency; PCP Physician Assistant Medical
DX: L03.115 Cellulitis of right lower limb (principal); M16.12 Unilateral primary osteoarthritis, left hip; G89.29 Other chronic pain
CPT/HCPCS: 36415; 80053; 87040; 96361; 96365; 96367; 96375; 99284; 73502; 73590; 73630; 83605; 85025; 93971; J0131; J0696

== ENCOUNTER 2020-09-02 20:36 | Emergency (ER) | payer OTHER, SELFPAY ==
[2020-09-02 20:44] VITALS: BP 139/108; PULSE 117; RESP 16; TEMP 36.7; O2SAT 99
--- NOTE | 2020-09-02 21:18 | W.ED.GENAD ---
Discharge Plan Disposition Patient Disposition: HOME Condition: Stable Discharge Details Clinical Impression: Right thigh pain Primary Care Provider: Joey Ga ED Provider: Milton Santos Home Meds and New Rx's Prescriptions: Continued tamsulosin 0.4 MG capsule 1 tab PO DAILY RF: 0 Eliquis 5 MG tablet 5 mg PO BID RF: 0 Discharge Instructions Instructions: Leg Pain (ED) Additional Instructions: As we discussed, I cannot stress the importance of you taking your Eliquis as directed. X-ray of your leg was unremarkable. [id number] Tylenol and Lidoderm patches as directed for discomfort. If you require anything stronger for pain you will need to talk with your primary care provider about pain control. Please watch for new or worsening symptoms and return to the ER for any concerns. Your D-dimer blood test is elevated and they will move forward with scheduling you for an ultrasound on Saturday. Diagnostic imaging will contact you Saturday to set up your ultrasound. After your ultrasound you will follow up back in the ER for results. Regardless of whether you have a DVT or not, treatment is your Eliquis, and as above I cannot stress the importance of you taking this medication. Please contact your primary care provider on Saturday for prompt outpatient reevaluation. Discharge Data Discharge Date/Time-TO BE ENTERED AT DEPARTURE: 09/02/20 22:35 Medical Decision Making This is a 70-year-old gentleman, vague and poor historian, with past medical history that includes alcohol abuse, chronic pain, DVT, chronic anticoagulation, GI bleed, encephalopathy. In triage his heart rate was 170 and blood pressure was 139/108. Upon my evaluation there is no evidence of tachycardia. When reviewing his several most recent visit, it appears as though tachycardia and hypertension is his baseline. Patient is coming to the ER today complaining of right knee pain, atraumatic, has been there for a day or 2. Physical exam patient is without erythema, warmth, ecchymosis. Skin is intact. His calf is unremarkable, negative Homans' sign. He does have some chronic changes of the right lower extremity consistent with venous stasis. Patient is primarily concerned at this time with pain control. He has not taken anything for his pain. Of note, I did receive a call from his brother Zain whom he lives with. He is concerned that his brother drug-seeking and if avoidable for that his brother would not be given any narcotic medication. He is unaware of any injury the patient may have sustained. He does note that he is not always compliant with taking his medications. His right eye exam is rather unimpressive. I discussed the case with Dr. Garcia. Plan to give a single dose of p.o. Tylenol and a Lidoderm patch. Will obtain x-ray to rule out any potential lytic lesion. Clinically, DVT is low suspicion and therefore PE is also of low suspicion. No clear indication to pursue CTA at this time. Again patient is chronically hypertensive and tachycardic, he had tachycardia upon presentation in triage but not during my evaluation will recheck her vital signs. Given history of DVT and potential noncompliance, difficult to rule this out DVT completely by examination alone. He denies any chest pain, shortness of breath, whatsoever. Unfortunately it is Saturday and ultrasound is not readily available tonight or likely over the weekend. I did confirm this with the diagnostic imaging department. Using the Wells criteria for DVT, patient scores 2 points, moderate risk risk for DVT. A score of 1-2 is considered moderate risk with a pretest probability of 17%. This patient should proceed to high-sensitivity D-dimer testing. A negative high-sensitivity D-dimer is sufficient for rule out of the DVT in a moderate risk patient with a probability of less than 1%. A positive high-sensitivity D-dimer should proceed to ultrasound testing. A negative ultrasound is sufficient for ruling out DVT. If positive ultrasound is concerning for DVT, strongly consider treatment with anticoagulation. Patient is already treated with Eliquis and we discussed the importance of being compliant with his medication. When reviewing the patient's vital signs today he is both hypertensive and tachycardic however looking back at several of his most recent visits, this appears to be near his baseline. Repeat heart rate revealed a rate in the 80s. Blood pressure 149/86. Again he denies any chest pain, shortness of breath, history of PE. His vital signs appear to be his baseline and therefore lower suspicion for acute PE. D-dimer is 2407. We will proceed to ultrasound. Letter to patient has a DVT but not, he should be taking Eliquis as directed. As above, ultrasound is not obtainable at this time. I see no reason to transfer the patient for emergent ultrasound. Ultrasound was available and he was found to have a DVT, but there would be no change in treatment, he would be advised to take his Eliquis as directed, follow-up with his primary care provider on Saturday, and return to the ER for any new or worse such as chest pain, shortness of breath, syncope, etc. Given I will have the patient come for an ultrasound on Saturday morning. X-ray of his right femur read by radiology as negative. I discussed the work-up and my thought process with both patient and his brother, they are both comfortable with this plan. Patient is requesting additional analgesia. Currently he is eating a turkey sandwich and appears to be in no acute distress. I see no indication for additional emergent analgesia. Given his anticoagulation, we will not initiate any anti-inflammatories. He was offered a prescription for Tylenol and a Lidoderm patch but declined. Deferred additional analgesia prescription to his primary care provider as an outpatient. Patient has no additional questions or concerns and is comfortable discharge. His brother Zain is comfortable taking him home in his current condition. Medical Records Medical records reviewed: Yes I reviewed the patient's medical records. Imaging Data Radiologic Study: Attestation: I personally reviewed and interpreted this imaging study as follows: Imaging: X-Ray Radiologist's impression: Right femur x-ray read by virtual radiology as no acute findings. Lab Data Lab results reviewed: Yes I reviewed the patient's lab results. Lab results narrative: Laboratory Tests Range/Units 09/02/20 21:35 D-Dimer (<500) ng/mlFEU 2407 H HPI General Mode of arrival: ambulatory. Date/Time Provider Initiated Documentation: 09/02/20 20:36. Limitations to Documentation: no limitations. Information obtained by: patient. HPI Narrative: This is a 70-year-old gentleman presenting via private vehicle for evaluation of right thigh pain. Patient is a rather vague and poor historian. He tells me that he has had right thigh pain, deep in my bone, for a day or 2. No known injury. He has not taken any dxoh-qnx-kkqunet medication for his symptoms. Patient has a past history that includes alcohol abuse, arthritis, chronic pain, DVT, chronic anticoagulation, GERD, GI bleed, Warnicke's encephalopathy. Patient reports that he smokes 1-1/2 pack cigarettes daily and drinks nearly a liter of alcohol daily. He denies recent illness or trauma. Has no additional questions or concerns at this time. The patient's brother, Zain, home the patient lives with contacted the ER to make us aware that the patient tends to go to different hospitals and ERs to get pain medication. He would prefer that we do not give any narcotic medication if avoidable. He tells me that he tries to get his brother to take his medications as directed but he does know that he is not always compliant. Patient denies any headache, chest pain, shortness of breath, cough, fever, abdominal pain, nausea, vomiting. Patient reports that he ambulated with assistance at his baseline level. He admits to chronic pain but does not report chronic pain typically his right leg. He does admit to discoloration right lower leg but this is chronic in nature. Related Data Home Medications Medication Instructions Recorded Confirmed tamsulosin 1 tab PO DAILY 07/16/15 09/02/20 Eliquis 5 mg PO BID 12/12/18 09/02/20 Allergies Allergy/AdvReac Type Severity Reaction Status Date / Time ciprofloxacin Allergy Severe Anaphylaxsi Unverified 04/12/20 12:36 s atropine AdvReac Severe BP drops Unverified 04/12/20 12:36 pentazocine AdvReac Unknown Unverified 04/12/20 12:36 IV contrast AdvReac Unknown Hives Uncoded 04/12/20 12:36 General Stated Complaint: Orthopedic MEGHNA: 4 Review of Systems Constitutional Constitutional: Denies fatigue, Denies fever(s) and Denies headache(s) ENT Ears, Nose, Mouth, and Throat: Denies headache(s) Cardiovascular Cardiovascular: Denies chest pain at rest and Denies dyspnea Respiratory Respiratory: Denies cough and Denies dyspnea Gastrointestinal Gastrointestinal: Denies abdominal pain Musculoskeletal Musculoskeletal: Reports back pain (Chronic) Integumentary/Breasts Skin/Breast: Denies rash Neurologic Neurologic: Denies headache(s) Endocrine Endocrine: Denies fatigue Hematologic/Lymphatic Hematologic/Lymphatic: Reports easy bleeding and Reports easy bruising [facility] Medical History Alcohol abuse Arthritis Chronic pain DVT (deep venous thrombosis) GERD (gastroesophageal reflux disease) GI bleed Wernicke encephalopathy Surgical History H/O arthroscopic knee surgery Social History Smoking/Tobacco Use Status: Current every day Tobacco Type: cigarettes Smoking risk assessment performed?: Yes Alcohol Intake: current Alcohol Intake frequency: 3 or more drinks per day Alcohol type: wine Drug use: Never Substance use type: does not use Do you feel safe at home: Yes Do you feel safe in your relationship?: Yes Exam Const General: cooperative, comfortable and no acute distress Orientation: alert, awake, oriented to person, oriented to place and confused (Knows it is August 2020, unsure of exact date) [facility] Head: normal to inspection, normocephalic and atraumatic Mouth: moist mucous membranes Eyes General: appearance normal, both eyes and all related structures Conjunctivae: conjunctivae normal Sclera: sclerae normal Neck Neck: normal visual inspection, full ROM, no meningeal signs, trachea midline and supple Resp Effort & Inspection: normal respiratory effort and able to speak in complete sentences Auscultation: clear to auscultation bilaterally Cardio Rate: regular rate Rhythm: regular rhythm GI Palpation: soft, no pulsatile masses and nontender Back/Spine/Pelvis Back: No back tenderness Skin General skin exam: no rashes or lesions noted Neuro General: patient alert, patient awake, moves all extremities and no focal motor deficits Speech: speech normal Gait: gait assisted (Steady, Patient at baseline per patient) Sensory Exam: no sensory deficits noted Extrem Right upper extremity: normal to inspection, full ROM and normal capillary refill Left upper extremity: normal to inspection, full ROM and normal capillary refill Right lower extremity: full ROM, normal capillary refill, hip/thigh Details: normal to inspection and tenderness (Diffuse, mild); no swelling, no ecchymosis, no crepitus and no unusual warmth, knee Details: normal to inspection and normal ROM; no tenderness and no swelling and lower leg (Distal, anterior, changes consider chronic venous stasis) Details: other (Nontender calf, no swelling. Negative Homans' sign); no edema Left lower extremity: normal to inspection, full ROM and normal capillary refill Psych Appearance: grossly normal Mental Status: mental status grossly normal Course Vital Signs Vital signs: Vital Signs Temperature 36.7 C 09/02/20 20:44 Pulse 117 H 09/02/20 20:44 Respiratory Rate 16 09/02/20 20:44 Blood Pressure 139/108 H 09/02/20 20:44 Pulse Oximetry 99 09/02/20 20:44 Temperature 36.7 C 09/02/20 20:44 Temperature Source Skin 09/02/20 20:44 Pulse 117 H 09/02/20 20:44 Respiratory Rate 16 09/02/20 20:44 Respiratory Effort 09/02/20 20:46 Blood Pressure 139/108 H 09/02/20 20:44 Blood Pressure Position Sitting 09/02/20 20:44 Pulse Oximetry 99 09/02/20 20:44 Oxygen Delivery Method Room Air 09/02/20 20:44 Oxygen Flow Rate 0 09/02/20 20:44 Pain Level 10 09/02/20 20:46
[2020-09-02] MEDS: Lidocaine 5% Patch 1 PATCH TP (21:32)
[2020-09-02] MEDS: Acetaminophen 500 MG TAB 1000 MG PO (21:33)
--- NOTE | 2020-09-02 21:53 | DI.RAD_ITS ---
EXAM: XR FEMUR RT CLINICAL HISTORY: pain. TECHNIQUE: 2D digital imaging was performed. COMPARISON: CR XR TIB/FIB RT from 04/12/2020 FINDINGS: There is right knee prosthesis. Right hip and femur reveal no evidence of obvious fracture lines. C alcifications just off the lateral aspect of the greater trochanter of the hip is noted which is prob ably calcific tendonitis/bursitis. If there was direct trauma at this site than may represent avulsi on injury. No degenerative changes evident in the hip. There is prominent calcification in the soft tissues in the posterior aspect of the thigh noted. This is possibly of similar nature to what this patient has in the calf. Although the calf calcification appear to be mostly within the Achilles tendon. This most probably muscular calcification. IMPRESSION: Findings as above but doubtful for acute fracture. Right knee prosthesis noted. DATA REPOSITORY: RADIATION DOSE DELIVERED:
--- NOTE | 2020-09-02 22:08 | DI.VRAD_ITS ---
PROCEDURE INFORMATION: Exam: XR Right Femur Exam date and time: 09/02/2020 9:26 PM Age: 70 years old Clinical indication: Pain; Thigh; Right TECHNIQUE: Imaging protocol: XR Right femur. Views: 2 views. COMPARISON: CR XR TIB/FIB RT 04/12/2020 1:33 PM FINDINGS: Bones/joints: Right total knee replacement with intact hardware. No acute fracture. . Soft tissues: Nonspecific calcification in the posterior right distal thigh soft tissue, likely benign. IMPRESSION: No acute finding. Dictated and Authenticated by: Chris Duggan MD. Ordering:BARTOLOME Rose MD
[2020-09-02 22:18] LABS: D-Dimer 2407 ng/mlFEU (<500)
[2020-09-02 22:38] VITALS: BP 149/86; PULSE 86; RESP 16; O2SAT 98
--- NOTE | 2020-09-02 22:43 | NUR.NOTE ---
Reports continued pain. DC instructions reviewed with brother over phone with ABDULKADIR Santos. To exit with steady gait.
== END 2020-09-02 22:35 | disposition home or self-care (01) ==
PROVIDERS: Emergency Provider Physician Assistant; PCP Physician Assistant Medical
DX: M79.651 Pain in right thigh (principal); R79.1 Abnormal coagulation profile; Z86.718 Personal history of other venous thrombosis and embolism; Z79.01 Long term (current) use of anticoagulants; I10 Essential (primary) hypertension; Z91.14 Patient's other noncompliance with medication regimen; F17.210 Nicotine dependence, cigarettes, uncomplicated; F10.10 Alcohol abuse, uncomplicated
CPT/HCPCS: 36415; 73552; 99284; 85379

== ENCOUNTER 2020-09-05 10:49 | Emergency (ER) | payer OTHER, SELFPAY ==
[2020-09-05 10:52] VITALS: BP 154/102; PULSE 94; RESP 20; TEMP 37.2; O2SAT 98
--- NOTE | 2020-09-05 11:09 | W.ED.GENAD ---
Discharge Plan Disposition Patient Disposition: HOME Condition: Stable Discharge Details Clinical Impression: Deep vein thrombosis (DVT) of right lower extremity, Hyperkalemia Primary Care Provider: Joey Ga ED Provider: Ilana Shaw Home Meds and New Rx's Prescriptions: Continued tamsulosin 0.4 MG capsule 1 tab PO DAILY RF: 0 Eliquis 5 MG tablet 5 mg PO BID RF: 0 Discharge Instructions Instructions: Deep Vein Thrombosis (ED) Additional Instructions: Lisset Jean Baptiste Family Service Worker with [facility] Please continue taking Eliquis as previously prescribed twice daily. Return to the hospital tomorrow to have your blood drawn and follow-up in the ER to repeat potassium level. Today your potassium level was slightly elevated at 5.5. Return to the ER or be seen sooner for any increased chest pain, shortness of breath or trouble breathing. Follow up with primary care provider in 3-5 days. Return to ED sooner if any worsening or concerns. Increase oral fluids. Please take Tylenol or Ibuprofen with food every 4-6 hours as needed for pain and swelling. Referrals: Joey Ga [Primary Care Provider] - Medical Decision Making 70-year-old male presents the ER from ultrasound with right leg swelling and right thigh pain. He was seen on Saturday here in emergency department where he had the ultrasound ordered for today. He reports increased swelling to his right lower extremity for the last 2 to 3 weeks. He states that he has been taking his Eliquis most of the time he does have a past medical history of right leg paralysis, GERD, wernicke's encephalopathy, chronic pain, sciatica, neuropathy, arthritis and GI bleed. He is an everyday smoker. He does endorse approximately 3 drinks a day of alcohol. He denies any chest pain or shortness of breath at this time. This is a positive-abnormal study for DVT. There is intraluminal thrombus seen both above and below the knee. This extends from the proximal peroneal veins and posterior tibial veins in the calf extending upwards to the level of the upper femoral vein and also involving profundal veins. The clot does not appear to extend into the saphenofemoral junction and the right common femoral vein is patent. The ipsilateral greater saphenous vein is also patent. IMPRESSION: 1. Positive study for significant-extensive DVT in the right lower extremity, as described above. The most cephalad extent of the clot is in the upper femoral vein-upper thigh. This does not extend into the common femoral vein. 2. Ipsilateral greater saphenous vein is patent. 1146: Spoke with Dr. Zazueta regarding patient, she reccommends consult with [facility] and hematology 1203: Call made to [facility] for consultation awaiting callback. [facility] requesting rapid covid testing. Order in place. 1216: Spoke with Dr. Evans and Dr. Herr with [facility], discussed patient case and details at this time do not recommend admission for this patient they do recommend continuation of the 5 mg of Eliquis twice daily, they are going to look into home care through the [facility]. I am concerned for risk for PE or clot dislogement due to extent of DVT and patient noncompliance. Patient states he did not take Eliquis this am, he lives with his brother who he states helps with his meds. 1239: Spoke with brother Wesley who reports that he has seen his brother throwing the Eliquis in the trash, 1248: Call made to [facility] erp project manager [facility]: Spoke with Carlita again, she continues to not see a medical reason for patient admission. Will give dose of Lokelma here for potassium of 5.5 and order repeat lab for tomorrow. EKG was reviewed by Jazz Finley MD ER attending, please see her official read. Patient discharged home with instructions to take Eliquis as prescribed, have blood drawn tomorrow and either return to ED or follow up with PCP. Brother Wesley verbalizes understanding and he was given the number to healthcare risk control consultant at the [facility]. Medical Records Medical records reviewed: Yes I reviewed the patient's medical records. Medical records narrative: Records reviewed from Saturday's visit to the emergency room and previous visits including April 2020. Patient had a right lower extremity ultrasound to rule out DVT at that time which was negative. HPI General Mode of arrival: wheelchair. Date/Time Provider Initiated Documentation: 09/05/20 10:59. Limitations to Documentation: no limitations. Information obtained by: patient. HPI Narrative: 70-year-old male presents the ER from ultrasound with right leg swelling and right thigh pain. He was seen on Saturday here in emergency department where he had the ultrasound ordered for today. He reports increased swelling to his right lower extremity for the last 2 to 3 weeks. He states that he has been taking his Eliquis most of the time he does have a past medical history of right leg paralysis, GERD, chronic pain, wernickys encephalopathy, sciatica, neuropathy, arthritis and GI bleed. He is an everyday smoker. He does endorse approximately 3 drinks a day of alcohol. He denies any chest pain or shortness of breath at this time. Related Data Home Medications Medication Instructions Recorded Confirmed tamsulosin 1 tab PO DAILY 07/16/15 09/05/20 Eliquis 5 mg PO BID 12/12/18 09/05/20 Allergies Allergy/AdvReac Type Severity Reaction Status Date / Time ciprofloxacin Allergy Severe Anaphylaxsi Unverified 09/05/20 10:58 s atropine AdvReac Severe BP drops Unverified 09/05/20 10:58 pentazocine AdvReac Unknown Unverified 09/05/20 10:58 IV contrast AdvReac Unknown Hives Uncoded 09/05/20 10:58 General Stated Complaint: Orthopedic MEGHNA: 3 Review of Systems Narrative: Constitutional: Negative for weight loss, alert and oriented, well groomed, normal body habitus, appears comfortable. HEENT: Denies trauma, headaches, blurry vision, nasal discharge, sore throat, trouble swallowing. Chest: Denies chest pain, palpitations, irregular rhythm, hypertension. Respiratory: Denies Shortness of breath, cough, hemoptysis. GI: Denies abdominal pain, nausea, vomiting, diarrhea, constipation. : Denies dysuria, hematuria, flank pain, rectal bleeding. Extremities: Right lower extremity swelling, erythema, appearance of peripheral vascular disease chronic appearing wounds noted to the distal lower extremity. He does have tenderness to his right thigh. Neuro: Denies dizziness, blurry vision, weakness, syncope, headache or facial numbness. Hematologic: Denies easy bruising, intolerance to heat or cold, hair loss. [facility] Medical History (Updated 09/05/20 @ 13:15 by Ilana Shaw) Alcohol abuse Arthritis Chronic pain DVT (deep venous thrombosis) GERD (gastroesophageal reflux disease) GI bleed Wernicke encephalopathy Surgical History H/O arthroscopic knee surgery Social History Smoking/Tobacco Use Status: Current every day Tobacco Type: cigarettes Smoking risk assessment performed?: Yes Alcohol Intake: current Alcohol Intake frequency: 3 or more drinks per day Alcohol type: wine Drug use: Never Substance use type: does not use Do you feel safe at home: Yes Do you feel safe in your relationship?: Yes Exam Narrative Exam Narrative: Constitutional: Alert and oriented x3. Appears stated age. Normal body habitus. Head: Normocephalic, no trauma. Eyes: Pupils PERRLA, Red reflex noted, EOM's intact. Eyelids symmetrical without lesions, discharge, or swelling. ENT: Bilateral TM's WNL, External ear normal to inspection, no mastoid TTP, swelling, or erythema, Nasal turbinates WNL, no nasal discharge. Normal dentition, Posterior pharynx WNL, no exudate. Chest: RRR, Normal S1, S2, distal pulses intact. Resp: Scattered expiratory wheezes noted throughout, no rales, or rhonchi. Musculoskeletal: Normal gait, 5/5 strength to all four extremities. Right lower extremity swelling, erythemic patient reports no swelling 2 to 3 weeks ago. Skin: Capillary refill less than 2 sec. does appear to have peripheral vascular disease and venous stasis with some chronic appearing wounds noted to the distal aspect of his right leg. Neurologic: Cranial nerves II-XII intact. Alert and oriented x 3. DTR's intact. Hematologic/Lymphatic: No ecchymosis, no lymphadenopathy. Course Vital Signs Vital signs: Vital Signs Temperature 37.2 C 09/05/20 10:52 Pulse 94 H 09/05/20 10:52 Respiratory Rate 20 09/05/20 10:52 Blood Pressure 154/102 H 09/05/20 10:52 Pulse Oximetry 98 09/05/20 10:52 Temperature 37.2 C 09/05/20 10:52 Temperature Source Temporal Artery Scan 09/05/20 10:52 Pulse 94 H 09/05/20 10:52 Respiratory Rate 20 09/05/20 10:52 Respiratory Effort Non-Labored 09/05/20 10:56 Blood Pressure 154/102 H 09/05/20 10:52 Blood Pressure Position Sitting 09/05/20 10:52 Pulse Oximetry 98 09/05/20 10:52 Oxygen Delivery Method Room Air 09/05/20 10:52 Oxygen Flow Rate 0 09/05/20 10:52 Pain Level 9 09/05/20 10:52
[2020-09-05 12:14] LABS: Absolute Basophil Count 0.14 10^3/uL (0.0-0.2); Absolute Eosinophil Count 1.63 10^3/uL (0.0-0.7); Absolute Lymphocyte Count 2.23 10^3/uL (1.2-3.4); Absolute Monocyte Count 1.41 10^3/uL (0.1-0.8); Absolute Neutrophil Count 5.52 10^3/uL (1.2-6.7); Basophils % 1.3; Eosinophils % 14.8; HCT 40.1 % (40.0-50.0); HGB 13.5 g/dL (13.5-17.5); Immature Grans % 0.9; Lymphocytes % 20.2; MCH 33.3 pg (27.0-33.0); MCHC 33.7 % (32.0-36.0); MCV 98.8 fL (80-95); MPV 9.9 fL (8.0-11.0); Monocytes % 12.8; Nucleated RBC 0 %; Platelet Count 299 10^3/uL (130-400); RBC 4.06 10^6/uL (4.36-5.78); RDW 13.4 % (11.8-14.1); RDW-SD 48.5 fL; WBC 11.03 10^3/uL (4.4-10.8)
[2020-09-05 12:21] LABS: Bilirubin Negative (Negative); Blood Small (Negative); Clarity Clear (Clear); Glucose Negative (Negative); Ketones 15 mg/dL (Negative); Leukocyte Esterase Negative (Negative); Nitrite Negative (Negative); Specific Gravity 1.025 (1.005-1.025); pH 6.5 (5-8)
[2020-09-05 12:24] LABS: Source Nasopharynx
[2020-09-05 12:24] LABS: Prothrombin Time 10.1 sec (9.3-11.0)
[2020-09-05 12:25] LABS: ALT 34 U/L (16-63); AST 29 U/L (15-37); Albumin 3.5 g/dL (3.4-5.0); Alkaline Phosphatase 105 U/L (46-116); BUN 19 mg/dL (7-18); Bilirubin, Total 0.5 mg/dL (0.2-1.0); CREATININE 1.02 mg/dL (0.70-1.30); Calcium 9.1 mg/dL (8.5-10.1); Chloride 100 mmol/L (98-107); Glucose 103 mg/dL (74-106); Potassium 5.5 mmol/L (3.5-5.1); Sodium 134 mmol/L (136-145); Total Protein 7.6 g/dL (6.4-8.2)
[2020-09-05 12:32] LABS: WBC 0-2 HPF (0-5)
[2020-09-05 12:33] LABS: Bacteria Rare HPF (Negative); Epithelial Cells Few HPF (Negative); Other Cells Few Yeast (Negative)
[2020-09-05 12:34] LABS: C & S Indicated? No; Casts 0-2 Hyaline LPF (Negative); Crystals Negative HPF (Negative); Mucus Moderate (Negative)
[2020-09-05] MEDS: Apixaban 5 MG TAB PO (12:40)
--- NOTE | 2020-09-05 13:00 | RT.EKG_ITS ---
APPROVED REPORT Exam: Resting ECG Patient Location: E HR:90 bpm ECG Measurements Heart Rate 90 AXIS NM 127 P 64 QRSd 127 QRS 62 QT 386 T 33 QTc 474 Conclusion Sinus rhythm...normal P axis, V-rate 60- 99 Right bundle branch block...QRSd>120, terminal axis(90,270) RBBB present on prior with QRS 126 04/29 non-diagnostic EKG I have reviewed and interpreted ECG and agree with software generated interpretation.
[2020-09-05] MEDS: Sodium Zirconium Cyclosilicate 10 GM PKT PO (13:09)
[2020-09-05 13:20] LABS: COVID-19 PCR Negative (Negative); Influenza A PCR Negative (Negative); Influenza B PCR Negative (Negative); RSV PCR Negative (Negative)
[2020-09-05 13:22] VITALS: BP 157/99; PULSE 85; RESP 18; TEMP 37.4; O2SAT 97
--- NOTE | 2020-09-05 15:00 | W.ED.FU ---
Date of service: 09/05/20 Time of Service: 15:01 Follow Up Plan: Spoke with Melissa Jean Baptiste [facility] regarding patient case and details she will follow up with patient his brother and work on getting a follow-up appointment with PCP.
== END 2020-09-05 13:37 | disposition home or self-care (01) ==
PROVIDERS: Emergency Provider Registered Nurse Emergency; PCP Physician Assistant Medical
DX: E87.5 Hyperkalemia (principal); I82.441 Acute embolism and thrombosis of right tibial vein; I82.411 Acute embolism and thrombosis of right femoral vein; Z03.818 Encounter for observation for suspected exposure to other biological agents ruled out
CPT/HCPCS: 36415; 80053; 87637; 93005; 96372; 99284; 81003; 81015; 83735; 85025; 85610; 93010; 99283

== ENCOUNTER 2020-09-05 19:08 | Outpatient (CLI) | payer OTHER, SELFPAY ==
--- NOTE | 2020-09-05 | DI.US_ITS ---
EXAM: US LOWER EXTREMITY VENOUS RT CLINICAL HISTORY: PAIN, H/O DVT TECHNIQUE: Grayscale, color, and doppler imaging of the deep venous system of the lower extremity w as performed. COMPARISON: US US LOWER EXTREMITY VENOUS RT from 04/12/2020 FINDINGS: This is a positive-abnormal study for DVT. There is intraluminal thrombus seen both above and below the knee. This extends from the proximal pe roneal veins and posterior tibial veins in the calf extending upwards to the level of the upper femor al vein and also involving profundal veins. The clot does not appear to extend into the saphenofemor al junction and the right common femoral vein is patent. The ipsilateral greater saphenous vein is also patent. IMPRESSION: 1. Positive study for significant-extensive DVT in the right lower extremity, as described above. T he most cephalad extent of the clot is in the upper femoral vein-upper thigh. This does not extend i nto the common femoral vein. 2. Ipsilateral greater saphenous vein is patent. Report called to ER provider DATA REPOSITORY:
== END 2020-09-05 19:28 ==
PROVIDERS: PCP Physician Assistant Medical; Visit Provider Physician Assistant
DX: I82.451 Acute embolism and thrombosis of right peroneal vein (principal); I82.441 Acute embolism and thrombosis of right tibial vein; I82.411 Acute embolism and thrombosis of right femoral vein
CPT/HCPCS: 93971

== ENCOUNTER 2020-12-28 02:48 | Outpatient (CLI) | payer OTHER, SELFPAY ==
[2020-12-28 15:24] LABS: HCT 41.7 % (40.0-50.0); HGB 14.2 g/dL (13.5-17.5); MCH 33.5 pg (27.0-33.0); MCHC 34.1 % (32.0-36.0); MCV 98.3 fL (80-95); MPV 9.9 fL (8.0-11.0); Platelet Count 256 10^3/uL (130-400); RBC 4.24 10^6/uL (4.36-5.78); RDW-SD 51.5 fL; WBC 9.97 10^3/uL (4.4-10.8)
[2020-12-28 16:08] LABS: Hemoglobin A1C 4.9 % (<5.7)
[2020-12-28 16:58] LABS: ALT 33 U/L (16-63); AST 29 U/L (15-37); Alkaline Phosphatase 75 U/L (46-116); Anion Gap 9.7 mmol/L (3-11); BUN 15 mg/dL (7-18); Bilirubin, Direct 0.3 mg/dL (0.0-0.2); Bilirubin, Total 1.2 mg/dL (0.2-1.0); CO2 28.3 mmol/L (21.0-32.0); CREATININE 1.1 mg/dL (0.70-1.30); Calcium 9.6 mg/dL (8.5-10.1); Chloride 100 mmol/L (98-107); Glucose 81 mg/dL (74-106); Sodium 138 mmol/L (136-145); Total Protein 7.5 g/dL (6.4-8.2)
== END 2020-12-28 02:49 | disposition home or self-care (01) ==
LOC: LBO 02:48
PROVIDERS: PCP Physician Assistant Medical; Visit Provider Physician Assistant Medical
DX: I82.409 Acute embolism and thrombosis of unspecified deep veins of unspecified lower extremity (principal); Z79.899 Other long term (current) drug therapy
CPT/HCPCS: 36415; 80048; 80076; 85027; 83036

== ENCOUNTER 2021-07-19 02:08 | Outpatient (CLI) | payer OTHER, SELFPAY ==
[2021-07-19 16:21] LABS: HCT 46.9 % (40.0-50.0); HGB 15.2 g/dL (13.5-17.5); MCH 32.7 pg (27.0-33.0); MCHC 32.4 % (32.0-36.0); MCV 100.9 fL (80-95); MPV 9.5 fL (8.0-11.0); Platelet Count 286 10^3/uL (130-400); RBC 4.65 10^6/uL (4.36-5.78); RDW 14.1 % (11.8-14.1); RDW-SD 53.1 fL
[2021-07-19 17:53] LABS: ALT 31 U/L (16-63); AST 32 U/L (15-37); Albumin 4.2 g/dL (3.4-5.0); Alkaline Phosphatase 110 U/L (46-116); Bilirubin, Direct 0.3 mg/dL (0.0-0.2); Bilirubin, Total 1.4 mg/dL (0.2-1.0); Total Protein 8.2 g/dL (6.4-8.2)
[2021-07-20 14:50] LABS: CREATININE 1.1 mg/dL (0.70-1.30)
== END 2021-07-19 02:09 | disposition home or self-care (01) ==
LOC: LBO 02:08
PROVIDERS: PCP Physician Assistant Medical; Visit Provider Pharmacist
DX: Z79.01 Long term (current) use of anticoagulants (principal)
CPT/HCPCS: 36415; 80076; 85027; 82565

== ENCOUNTER 2023-09-12 15:26 | Outpatient (REF) | payer OTHER, SELFPAY ==
[2023-09-12 16:36] LABS: Bilirubin Negative (Negative); Blood Trace-intact (Negative); Clarity Clear (Clear); Glucose Negative (Negative); Ketones Negative (Negative); Leukocyte Esterase Negative (Negative); Nitrite Positive (Negative); Specific Gravity 1.015 (1.005-1.025); Urobilinogen 0.2 mg/dL (Up to 0.2)
[2023-09-12 16:43] LABS: Bacteria Many HPF (Negative); C & S Indicated? Yes; Crystals Negative HPF (Negative); Epithelial Cells Rare HPF (Negative); Mucus Negative (Negative); RBC 0-2 HPF (0-2)
== END 2023-09-12 15:27 | disposition home or self-care (01) ==
LOC: LBN 15:26
PROVIDERS: PCP Physician Assistant Medical; Visit Provider Internal Medicine
DX: R32 Unspecified urinary incontinence (principal); R35.1 Nocturia; R82.998 Other abnormal findings in urine
CPT/HCPCS: 81003; 81015; 87086

== ENCOUNTER 2024-09-28 18:02 | Emergency (ER) | payer OTHER, SELFPAY ==
[2024-09-28] VITALS (14 sets, daily range): BP systolic 133–165; BP diastolic 76–83; PULSE 85–95; RESP 14–21; TEMP 36.7; O2SAT 95–99
[2024-09-28 19:14] LABS: Abs Immature Grans 0.04 10^3/uL (0.0-0.06); Absolute Basophil Count 0.11 10^3/uL (0.0-0.2); Absolute Eosinophil Count 0.92 10^3/uL (0.0-0.7); Absolute Lymphocyte Count 1.71 10^3/uL (1.2-3.4); Absolute Monocyte Count 0.89 10^3/uL (0.1-0.8); Absolute Neutrophil Count 3.59 10^3/uL (1.2-6.7); Basophils % 1.5 %; Eosinophils % 12.7 %; HCT 46.4 % (40.0-50.0); HGB 15.3 g/dL (13.5-17.5); Immature Grans % 0.6 %; Lymphocytes % 23.6 %; MCH 32.5 pg (27.0-33.0); MCV 99 fL (80-95); MPV 9.8 fL (8.0-11.0); Monocytes % 12.3 %; Neutrophils % 49.3 %; Nucleated RBC 0.3 % (0.0-0.3); Platelet Count 269 10^3/uL (130-400); RBC 4.71 10^6/uL (4.36-5.78); RDW 14.3 % (11.8-14.1); RDW-SD 51.8 fL; WBC 7.26 10^3/uL (4.4-10.8)
[2024-09-28 19:24] LABS: ALT 22 U/L (16-63); AST 20 U/L (15-37); Albumin 3.7 g/dL (3.4-5.0); Alkaline Phosphatase 90 U/L (46-116); Anion Gap 6.6 mmol/L (3-11); BUN 17 mg/dL (7-18); Bilirubin, Total 1.02 mg/dL (0.2-1.0); CO2 29.4 mmol/L (21.0-32.0); CREATININE 1.2 mg/dL (0.70-1.30); Calcium 9.3 mg/dL (8.5-10.1); Chloride 101 mmol/L (98-107); Estimated GFR 63.46 (mL/min/1.73m2); Glucose 97 mg/dL (74-106); Potassium 4.6 mmol/L (3.5-5.1); Sodium 137 mmol/L (136-145); Total Protein 7.6 g/dL (6.4-8.2)
[2024-09-28] MEDS: Apixaban 5 MG TAB 20 MG PO (19:47)
[2024-09-28] MEDS: Acetaminophen 325 MG TAB 650 MG PO (19:47)
--- NOTE | 2024-09-28 22:39 | ED.GENADUL_ITS ---
Discharge Plan Disposition Patient Disposition: Home Condition: Stable Discharge Details Clinical Impression: Right leg swelling Primary Care Provider: Joey Ga ED Provider: Sagrario Huerta Home Meds and New Rx's Prescriptions: No Action No Known Home Meds Discharge Instructions Instructions: Apixaban Additional Instructions: He is elevate your leg is much as possible, you have an ultrasound ordered for the morning, please call the number listed at the top of the page at 7 AM to schedule your appointment for tomorrow Take the Eliquis every 12 hours you will receive a dose this evening and first thing in the morning, this will increase your risk of bradycardia bleeding so if you hit your head or injure yourself you should be reassessed immediately If you develop chest pain, shortness of breath, or with any new or worsening complaints including fever please return immediately for reassessment Referrals: Joey Ga [Primary Care Provider] - 1 day HPI General Date/Time Provider Initiated Documentation: 09/28/24 18:04 . HPI Narrative: The patient is a 74-year-old male with a history of chronic alcohol abuse, Wernicke's encephalopathy, and deep vein thrombosis (DVT), presenting with right lower extremity swelling that started today per his brother and caregiver. He has been off his Eliquis for approximately 2.5 years. He reports tenderness in his right calf but does not experience any chest pain or shortness of breath. He is alert and oriented. Related Data Home Medications ?Medication ?Instructions ?Recorded ?Confirmed Unknown [No Known Home Meds] 09/28/24 09/28/24 Allergies Allergy/AdvReac Type Severity Reaction Status Date / Time ciprofloxacin Allergy Severe Anaphylaxsi Unverified 09/28/24 18:15 s atropine AdvReac Severe BP drops Unverified 09/28/24 18:15 pentazocine AdvReac Unknown Unknown Unverified 09/28/24 18:15 IV contrast AdvReac Unknown Hives Uncoded 09/28/24 18:15 General Stated Complaint: Vascular MEGHNA: 3 Exam Narrative Exam Narrative: General Appearance: Normal. Vital signs: Within normal limits. HEENT: Within normal limits. Respiratory: Within normal limits. Cardiovascular: Good palpable dorsalis pedis pulses are present bilaterally and capillary refill is good. Extremities: There is fairly significant peripheral vascular disease and discoloration of bilateral lower extremities. Venous stasis ulcers are noted. Skin: Warm and dry, no rash. Neurological: Normal. Course Vital Signs Vital signs: Vital Signs Temperature 36.7 C 09/28/24 18:08 Pulse 95 H 09/28/24 18:08 Respiratory Rate 14 09/28/24 18:08 Blood Pressure 165/76 H 09/28/24 18:08 Pulse Oximetry 97 09/28/24 18:08 Temperature 36.7 C 09/28/24 18:08 Temperature Source Oral 09/28/24 18:08 Pulse 92 H 09/28/24 19:40 Respiratory Rate 21 09/28/24 19:22 Respiratory Effort Normal 09/28/24 19:22 Respiratory Depth Normal 09/28/24 19:22 Respiratory Pattern Normal 09/28/24 19:22 Blood Pressure 145/82 H 09/28/24 19:31 Blood Pressure Mean 104 09/28/24 19:31 Blood Pressure Position Sitting 09/28/24 18:08 Pulse Oximetry 95 09/28/24 19:40 Oxygen Delivery Method Room Air 09/28/24 18:08 Oxygen Flow Rate 0 09/28/24 18:08 Pain Level 8 09/28/24 19:22 Lab/Test Results Lab/Test Results: Laboratory Tests Range/Units 09/28/24 19:00 WBC (4.4-10.8) 10^3/uL 7.26 RBC (4.36-5.78) 10^6/uL 4.71 Hgb (13.5-17.5) g/dL 15.3 Hct (40.0-50.0) % 46.4 MCV (80-95) fL 99 H MCH (27.0-33.0) pg 32.5 MCHC (32.0-36.0) % 33.0 RDW (11.8-14.1) % 14.3 H Plt Count (130-400) 10^3/uL 269 MPV (8.0-11.0) fL 9.8 Immature Gran % % 0.6 Neutrophils % % 49.3 Lymphocytes % % 23.6 Monocytes % % 12.3 Eosinophils % % 12.7 Basophils % % 1.5 Nucleated RBC % (0.0-0.3) % 0.3 Absolute Neutrophils (1.2-6.7) 10^3/uL 3.59 Absolute Lymphocytes (1.2-3.4) 10^3/uL 1.71 Absolute Monocytes (0.1-0.8) 10^3/uL 0.89 H Absolute Eosinophils (0.0-0.7) 10^3/uL 0.92 H Absolute Basophils (0.0-0.2) 10^3/uL 0.11 Sodium (136-145) mmol/L 137 Potassium (3.5-5.1) mmol/L 4.6 Chloride (98-107) mmol/L 101 Carbon Dioxide (21.0-32.0) mmol/L 29.4 Anion Gap (3-11) mmol/L 6.6 BUN (7-18) mg/dL 17 Creatinine (0.70-1.30) mg/dL 1.2 Est GFR (CKD-EPI 2020) (mL/min/1.73m2) 63.46 Glucose (74-106) mg/dL 97 Calcium (8.5-10.1) mg/dL 9.3 Total Bilirubin (0.2-1.0) mg/dL 1.02 H AST (15-37) U/L 20 ALT (16-63) U/L 22 Alkaline Phosphatase (46-116) U/L 90 Total Protein (6.4-8.2) g/dL 7.6 Albumin (3.4-5.0) g/dL 3.7 Medical Decision Making Laboratory Studies CBC and CMP reviewed without acute abnormality. Initial Assessment: 74-year-old male with history of chronic alcohol abuse, Warnicke's encephalopathy, DVT presents with right lower extremity swelling that started today. Off Eliquis for approximately 2-1/2 years. Denies recent sites, surgeries, long drives, fever, chills, chest pain, or shortness of breath. Tender right calf. Alert and oriented. Significant peripheral vascular disease, discoloration of bilateral lower extremities, good palpable dorsalis pedis pulses bilaterally, good cap refill, venous stasis ulcers. Differential Diagnosis: - DVT: History of DVT, off Eliquis for 2.5 years. Plan: Order DVT study of right lower extremity, initiate Eliquis 10 mg tonight and one dose for tomorrow morning. - Cellulitis: Low suspicion as symptoms came on suddenly. No significant elevated yancey. Plan: Monitor. ED Course: - CBC and CMP reviewed without acute abnormality. - DVT study of right lower extremity ordered. - Ultrasound ordered for tomorrow. - Initiated Eliquis 10 mg tonight and one dose for tomorrow morning. - Return precautions reviewed. Final Assessment: Reviewed CBC and CMP without acute abnormality. Ordered DVT st udy and ultrasound. Initiated Eliquis. Reviewed return precautions. Clinical Impression: - Right lower extremity swelling Disposition: - Discharge: Discharged home under the care of his brother. MDM Components Evaluation: - Number of Differential Diagnoses or Management Options: DVT, Cellulitis - Amount and Complexity of Data Reviewed: CBC, CMP, DVT study, ultrasound - Risk of Complication and Morbidity or Mortality: Risk of DVT recurrence due to history and being off Eliquis for 2.5 years. Quality:SDOH Health Related Social Needs: No Data to Display PFSH All Active Problems (Updated 09/28/24 @ 19:34 by ABDULKADIR Kennedy) Right leg swelling (Acute) Medical History (Updated 09/28/24 @ 19:34 by ABDULKADIR Kennedy) Arthritis Chronic pain Alcohol abuse GERD (gastroesophageal reflux disease) DVT (deep venous thrombosis) GI bleed Wernicke encephalopathy Surgical History H/O arthroscopic knee surgery Social History Smoking/Tobacco Use Status: Current every day Tobacco Type: cigarettes Smoking risk assessment performed?: Yes Alcohol Intake: current Alcohol Intake frequency: 3 or more drinks per day Alcohol type: wine Drug use: Never Substance use type: does not use Do you feel safe at home: Yes Do you feel safe in your relationship?: Yes
--- NOTE | 2024-09-28 22:46 | NUR.NOTE ---
Ultrasound requisition faxed to [facility], patient advised to call [facility] scheduling anytime after 7am 09/29/24 to make appt. Copy of requisition given to patient.Nursing Note:
== END 2024-09-28 19:59 | disposition home or self-care (01) ==
PROVIDERS: Emergency Provider Physician Assistant; PCP Physician Assistant Medical
DX: M79.89 Other specified soft tissue disorders (principal); Z86.718 Personal history of other venous thrombosis and embolism; F17.210 Nicotine dependence, cigarettes, uncomplicated; F10.10 Alcohol abuse, uncomplicated; Z79.01 Long term (current) use of anticoagulants
CPT/HCPCS: 80053; 99284; 85025; 99283

== ENCOUNTER 2024-09-30 01:53 | Outpatient (CLI) | payer MEDICARE, OTHER, SELFPAY ==
--- NOTE | 2024-09-30 | DI.US_ITS ---
Exam(s) US LOWER EXTREMITY VENOUS RT EXAM: US LOWER EXTREMITY VENOUS RT CLINICAL HISTORY: RLE DVT,RLE SWELLING,H/O DVT TECHNIQUE: Right lower extremity venous ultrasound performed using grayscale, color-flow, and spectr al Doppler analysis. COMPARISON: No exams were available for comparison FINDINGS: The right common femoral and profundus veins are patent and show normal compression and augmentation. There is hypoechoic occlusive thrombus seen in the femoral vein and popliteal vein. The posterior tibialis and peroneal veins are not visualized. There is thrombus seen in the greater saphenous vein consistent with thrombophlebitis. The saphenofemoral junction is patent. There is no evidence of a Izaguirre cyst. There is edema seen in the soft tissues of the lower extremity. IMPRESSION: 1. DVT involving the right femoral and popliteal veins. 2. Superficial thrombophlebitis. There is no involvement of the saphenofemoral junction. DATA REPOSITORY:
== END 2024-09-30 02:13 ==
PROVIDERS: PCP Internal Medicine; Visit Provider Physician Assistant
DX: I70.211 Atherosclerosis of native arteries of extremities with intermittent claudication, right leg
CPT/HCPCS: 93971

== ENCOUNTER 2024-09-30 15:15 | Emergency (ER) | payer OTHER, SELFPAY ==
[2024-09-30] VITALS (19 sets, daily range): BP systolic 131–222; BP diastolic 79–125; PULSE 72–127; RESP 21–26; TEMP 36.6; O2SAT 96–99
--- NOTE | 2024-09-30 15:43 | ED.GENADUL_ITS ---
Discharge Plan Disposition Patient Disposition: Home Discharge Details Clinical Impression: Acute deep vein thrombosis (DVT) of right lower extremity Primary Care Provider: Ximena Kemp ED Provider: Reuben Simmons Home Meds and New Rx's Prescriptions: New apixaban 5 mg (74 tabs) tablets,dose pack See Rx Instructions .ROUTE .COMPLEX Qty: 74 0RF Rx Instructions: orally per package directions Discharge Instructions Additional Instructions: You are seen in the emergency department for your leg pain. Your CAT scan showed that you do not have any acute blockages in the arteries of your leg. Please follow-up with your primary care provider. Please continue taking this apixaban until you are seen by your primary care provider. Apixaban is a blood thinner also known as Eliquis. Please return to emergency department if you develop any worsening pain in your lower extremity or if you cannot feel your lower extremity. HPI General Date/Time Provider Initiated Documentation: 09/30/24 15:16 . HPI Narrative: MDM This is a chronically ill-appearing mildly tachycardic but normothermic 74-year-old male with peripheral vascular disease for which I ordered a CT angiogram which was negative for any signs of critical limb ischemia. Patient received 4 mg of morphine. He received an oral dose of apixaban. He was transiently on heparin drip as I was concerned that he may have critical limb ischemia. I discontinued his heparin drip. He was having no chest pain hypoxia to suggest PE so I did not feel he required a CT scan of his chest. He did have some elevated blood pressures but these normalized in the ED without interv ention. He had some tachycardia but this resolved. No erythema to suggest cellulitis. No pain out of proportion to suggest necrotizing soft tissue infection. No trauma to suggest benefit from x-rays. No signs of any plantar ulcers to suggest increased risk of osteomyelitis and no fevers. Patient chart reportedly listed allergy to IV contrast. Patient was not aware of this allergy. He received IV contrast. He had had some itching prior to receiving his contrast. He was having some persistent itching after the contrast but no respiratory symptoms no new rash. Will continue to monitor in the ED. Patient and I discussed that he should return to emergency department if he develops any worsening lower extremity pain if he cannot feel his feet or if he develops any fevers. We also discussed that he should return to the emergency department if you develop any chest pain or shortness of breath. He understood his return indications. His bilateral help to arrange follow-up for him with [facility]. HPI This is a 74-year-old male history of tobacco use alcohol abuse Warnicke's encephalopathy. DVT off of apixaban for the past 2 and half years with worsening right calf pain found to have an acute right lower extremity DVT on radiology ultrasound today prior to emergency department via private vehicle for reassessment. Denies any worsening pain. No chest pain. No shortness of breath. Does not take any routine medications. No history of withdrawal. Drinks 3 to 4 glasses of wine per day. He took apixaban earlier this week. Exam General: Well-appearing in no acute distress speaking in complete sentences. Head: Normocephalic, atraumatic. Eye: No phlegmasia changes bilateral lower extremities. Extraocular eye movements intact. No conjunctival injection. No scleral icterus. Ear, nose, mouth, throat: Grossly normal inspection. Normal voice, handling secretions normally. Neck: Trachea midline. Cardiovascular: Well-perfused distal extremities. Respiratory: Nonlabored respiration. Gastrointestinal: Nondistended abdomen. Musculoskeletal: No phlegmasia changes bilateral lower extremities. Good palpable PT DP pulses. Cap refill less than 2 seconds. Peripheral vascular disease with discoloration to bilateral lower extremities. Skin: Normal for age and race, grossly normal temperature and turgor. No acute rash. Neurologic: Alert and appropriate, no apparent acute deficits. Related Data Home Medications ?Medication ?Instructions ?Recorded ?Confirmed apixaban 5 mg (74 tabs) tablets in See Rx Instructions PO .COMPLEX 09/30/24 a dose pack #74 dose pk Previous Rx's ?Medication ?Instructions ?Recorded apixaban 5 mg (74 tabs) tablets in See Rx Instructions PO .COMPLEX 09/30/24 a dose pack #74 dose pk Allergies Allergy/AdvReac Type Severity Reaction Status Date / Time ciprofloxacin Allergy Severe Anaphylaxsi Verified 09/30/24 15:21 s atropine AdvReac Severe BP drops Verified 09/30/24 15:21 pentazocine AdvReac Unknown Unknown Verified 09/30/24 15:21 IV contrast AdvReac Unknown Hives Uncoded 09/30/24 15:21 General Stated Complaint: Recheck MEGHNA: 5 Course Vital Signs Vital signs: Vital Signs Temperature 36.6 C 09/30/24 15:17 Pulse 102 H 09/30/24 15:17 Respiratory Rate 22 09/30/24 15:17 Blood Pressure 149/89 H 09/30/24 15:17 Pulse Oximetry 96 09/30/24 15:17 Temperature 36.6 C 09/30/24 15:17 Pulse 102 H 09/30/24 15:17 Respiratory Rate 22 09/30/24 15:17 Blood Pressure 149/89 H 09/30/24 15:17 Pulse Oximetry 96 09/30/24 15:17 Pain Level 3 09/30/24 15:17 Medical Decision Making Quality:SDOH Health Related Social Needs: No Data to Display PFSH All Active Problems (Updated 09/30/24 @ 18:44 by Reuben Simmons MD) Acute deep vein thrombosis (DVT) of right lower extremity (Acute) Right leg swelling (Acute) Medical History (Updated 09/30/24 @ 18:44 by Reuben Simmons MD) Arthritis Chronic pain Alcohol abuse GERD (gastroesophageal reflux disease) DVT (deep venous thrombosis) GI bleed Wernicke encephalopathy Surgical History H/O arthroscopic knee surgery Social History Smoking/Tobacco Use Status: Current every day Tobacco Type: cigarettes Smoking risk assessment performed?: Yes Alcohol Intake: current Alcohol Intake frequency: 3 or more drinks per day Alcohol type: wine Drug use: Never Substance use type: does not use Do you feel safe at home: Yes Do you feel safe in your relationship?: Yes
--- NOTE | 2024-09-30 16:00 | DI.CT_ITS ---
Exam(s) CT ABD AORTA CTA W RUNOFF EXAM: CT ABD AORTA CTA W RUNOFF CLINICAL HISTORY: Peripheral vascular disease. TECHNIQUE: Imaging Protocol: Axial computed tomography images with coronal and sagittal reformatted images were created and reviewed CONTRAST MATERIAL: Intravenous: Omnipaque 350 Contrast volume:150 mL Oral: None COMPARISON: No exams were available for comparison FINDINGS: ABDOMEN: There is no evidence of abdominal aortic aneurysm nor dissection. Maximum diameter of the abdominal aorta is 2.3 cm. There is mild stenosis in the proximal celiac artery and moderate stenosis in the p roximal superior mesenteric artery. Inferior mesenteric artery is patent. There is mild stenosis in the right renal artery is starting 1 cm distal to the origin of this vessel. Also moderate focal st enosis in the proximal left renal artery. There is moderate atherosclerotic disease at the aortic bifurcation and proximal aspect of the common iliac arteries. Subtle suggestion of a nonocclusive dissection flap in the right common iliac artery . Also in the medial aspect of the left common iliac artery, also nonocclusive. There is no significa nt stenosis in the distal common iliac arteries at junction with the external iliac arteries. No sign ificant stenosis in the external iliac arteries and common femoral arteries. No significant stenosis in the proximal aspects of the bilateral SFA arteries and both SFA arteries are patent without promin ent stenosis. There is mild stenosis in the right SFA within Roberto's canal. The left popliteal arter y is patent. The right popliteal artery appears patent but is partially obscured by the artifact from the right knee prosthesis. Both tibioperoneal trunks are patent. There is no evidence of popliteal a rtery aneurysms The dominant runoff vessel in the right calf is the anterior tibial artery. There is focal stenosis a t the origin of the right posterior tibial artery. Right posterior tibial artery exhibits mild diseas e throughout its length. Right peroneal artery is patent to the distal calf level. In the left calf the dominant runoff vessel is also the anterior tibial artery. The posterior tibial artery is a thinner vessel but is opacified to the distal calf. The thin left peroneal artery is opac ified to the distal calf. The 3 runoff vessels in the left calf do not appear to be opacified distal to the level just above the ankle. This may be related to bolus timing artifact. There is no ascites. LIVER: There are no focal hepatic lesions nor dilatation of intrahepatic ducts. GALLBLADDER/BILIARY: No obvious gallbladder pathology. CBD is not dilated. PANCREAS: No evidence of pancreatic mass nor dilatation of the pancreatic duct. SPLEEN: Not seen and may be surgically absent versus is a perry. ADRENALS: There are no significant adrenal masses. KIDNEYS: No cysts evident. No calculi nor hydronephrosis. No solid renal masses. ABDOMINAL AORTA: The abdominal aorta is not enlarged. LYMPH NODES: There is no retroperitoneal nor para-aortic adenopathy. No obvious mesenteric masses. ABDOMINAL WALL: No evidence of significant anterior abdominal wall hernia. GI: There is no evidence of bowel obstruction, free air, nor abscess.No obvious ischemic appearing jamarcus wel loops. PELVIS: LYMPH NODES: There is no intrapelvic nor inguinal adenopathy. GI: No evidence of appendicitis.No evidence of sigmoid diverticulitis. URINARY BLADDER: Uniformly thickened wall. REPRODUCTIVE: Mildly enlarged prostate gland. No obturator adenopathy OSSEOUS: No significant osseous lesions. IMPRESSION: 1. No evidence of abdominal aortic aneurysm, significant aneurysmal dilatation of the iliac arteries and no evidence of popliteal artery aneurysms. 2. Moderate atherosclerotic disease in the aortoiliac segments without evidence of a critical stenosi s in the runoff inflow vessels. 3. Mild stenosis in the right SFA within Roberto's canal. There is no occlusion of the SFA arteries an d popliteal arteries are patent and without evidence of aneurysms. 4. There is three-vessel runoff in both calves. Bolus timing artifact probably underestimates the hailee w in the distal left calf vessels. Report called by myself to ER physician 09/30/2024 6:30 p.m. RADIATION DOSE DELIVERED: 690.47mGy.cm Total DLP DATA REPOSITORY: All CT scans at this facility are submitted to the National Radiology Data Registry (NRDR) Dose Index Registry (DIR) with the [employer] ([employer]). RADIATION OPTIMIZATION: All CT scans at this facility use at least one of these dose optimization te chniques: automated exposure control; mA and/or kV adjustment per patient size (includes targeted exa ms where dose is matched to clinical indication); or iterative reconstruction.
[2024-09-30 16:40] LABS: Abs Immature Grans 0.03 10^3/uL (0.0-0.06); Absolute Eosinophil Count 1.01 10^3/uL (0.0-0.7); Absolute Lymphocyte Count 1.67 10^3/uL (1.2-3.4); Absolute Monocyte Count 0.85 10^3/uL (0.1-0.8); Absolute Neutrophil Count 3.85 10^3/uL (1.2-6.7); Basophils % 1.3 %; Eosinophils % 13.4 %; HCT 43.1 % (40.0-50.0); HGB 14.6 g/dL (13.5-17.5); Immature Grans % 0.4 %; Lymphocytes % 22.2 %; MCH 32.7 pg (27.0-33.0); MCHC 33.9 % (32.0-36.0); MCV 97 fL (80-95); MPV 9.6 fL (8.0-11.0); Monocytes % 11.3 %; Neutrophils % 51.4 %; Platelet Count 246 10^3/uL (130-400); RBC 4.46 10^6/uL (4.36-5.78); RDW 14.1 % (11.8-14.1); RDW-SD 50.6 fL; WBC 7.51 10^3/uL (4.4-10.8)
[2024-09-30] MEDS: MORPHine 4 MG/ML SYR IVP (16:42)
[2024-09-30 16:51] LABS: Anion Gap 6.5 mmol/L (3-11); BUN 17 mg/dL (7-18); CO2 29.5 mmol/L (21.0-32.0); Calcium 9.1 mg/dL (8.5-10.1); Chloride 102 mmol/L (98-107); Estimated GFR 78.98 (mL/min/1.73m2); Glucose 102 mg/dL (74-106); Potassium 5.1 mmol/L (3.5-5.1); Sodium 138 mmol/L (136-145)
[2024-09-30 16:53] LABS: PTT Activated 28.2 sec (20.6-30.2)
[2024-09-30] MEDS: Omnipaque 350 MG/ML 100 ML BTL IJ (17:37)
[2024-09-30] MEDS: Normal Saline - Diluent 50 ML VIAL IJ ×2 (17:38→17:39)
[2024-09-30] MEDS: Omnipaque 350 MG/ML 50 ML BTL IJ (17:38)
[2024-09-30] MEDS: Heparin in 0.45% NaCl 25,000 UNIT/250 ML BAG 15 UNIT IVINF (17:41)
[2024-09-30] MEDS: Acetaminophen 500 MG TAB 1000 MG PO (19:13)
[2024-09-30] MEDS: Apixaban 5 MG TAB 10 MG PO (19:13)
== END 2024-09-30 19:40 | disposition home or self-care (01) ==
PROVIDERS: Emergency Provider Emergency Medicine; PCP Internal Medicine
DX: I82.411 Acute embolism and thrombosis of right femoral vein (principal); I82.431 Acute embolism and thrombosis of right popliteal vein
CPT/HCPCS: 75635; 80048; 96365; 96366; 96375; 99284; 85025; 85730; J1644; J2270; J3490; Q9967

== ENCOUNTER 2025-03-30 13:29 | Emergency (ER) | payer OTHER, SELFPAY ==
[2025-03-30 13:39] VITALS: BP 167/109; PULSE 82; RESP 12; TEMP 36.7; O2SAT 94
--- NOTE | 2025-03-30 14:00 | DI.US_ITS ---
Exam(s) US LOWER EXTREMITY VENOUS LT EXAM: US LOWER EXTREMITY VENOUS LT CLINICAL HISTORY: left leg swollen with a lump. TECHNIQUE: Lower extremity venous ultrasound performed using grayscale, color- flow, and spectral Doppler analysis. COMPARISON: US US LOWER EXTREMITY VENOUS RT from 09/30/[address] ABD AORTA CTA W RUNOFF from 09/30/2024 FINDINGS: The common femoral, profundus femoral, proximal and mid femoral veins demonstrate normal compressibility, augmentation, and color Doppler. There is thin echogenicity noted in the distal left femoral and popliteal veins consistent with residual old thrombus. The posterior tibial veins are patent. No saphenous vein thrombosis or other superficial venous thrombosis is seen. The area of the patient's swelling in the lateral calf, there is fluid collection with some debris measuring 4.7 x 1.4 x 4.5 cm there is edema in the subcutaneous fat of the lower leg. IMPRESSION: Small amount of residual thrombus noted in the distal superficial femoral vein and popliteal vein. Edema and redness in the subcutaneous fat of the lower leg. Localized fluid collection with surrounding hyperemia could indicate an abscess. DATA REPOSITORY:
--- NOTE | 2025-03-30 16:30 | DI.CT_ITS ---
Exam(s) CT ABD AORTA CTA W RUNOFF EXAM: CT ABD AORTA CTA W RUNOFF CLINICAL HISTORY: Bilateral lower extremity PVD, Left leg abscess. TECHNIQUE: Imaging Protocol: Axial CT angiography was performed with multi- slice acquisition and multi-planar and/or 3D reconstructions. CONTRAST MATERIAL: Intravenous: Omnipaque 350 Contrast volume:100 ml Contrast route:IV - Oral: / no COMPARISON: CT CT ABD AORTA CTA W RUNOFF from 09/30/2024 FINDINGS: Vascular Structures: Abdomen: Celiac [place]: No significant stenosis. SMA: Moderate stenosis prox. Renal Arteries: Moderate stenosis proximal left renal artery. There is a single renal artery perfusing each kidney. Aorta: No aneurysm. No dissection. Pelvis: Iliac Arteries: Calcific plaque and mild mural thrombus without significant stenosis. Common Femoral Arteries: No significant stenosis. Lower extremities: Right: Common Femoral: No significant stenosis. Superficial Femoral: No significant stenosis. Popliteal: No significant stenosis. Knee Trifurcation: No significant stenosis. Posterior Tibial: Obscured by significant artifact from right knee prosthesis. Peroneal: No significant stenosis. The distal vessels are opacified to the level of the ankle but not well visualized distally. Left: Common Femoral: No significant stenosis. Superficial Femoral: No significant stenosis. Popliteal: No significant stenosis. Knee Trifurcation: No significant stenosis. Posterior Tibial: No significant stenosis. Peroneal: No significant stenosis. The distal vessels are opacified to the level of the ankle but not well visualized distally. Soft Tissues: There is significant edema in the subcutaneous fat of the bilateral feet and ankles extending to the level of the upper calf. There is a focal area of ovoid soft tissue prominence in the subcutaneous fat of the mid lower leg laterally. This was seen on ultrasound to represent a fluid co llection, possible abscess. It measures roughly 5 in length by 1.8 cm transverse. The exam is mildly limited by motion. Lungs: No acute findings. Liver: Normal density. No measurable mass. Gallbladder and biliary tract: No radiodense calculus or dilation. Pancreas: Normal density, no abnormal calcifications or inflammatory process. Spleen: Normal. Kidneys: Normal size, contour and axis. No radiodense stones or obstructive uropathy. No masses seen. Adrenal glands: No masses seen. Bladder: Nearly empty. Question mild wall thickening. Bowel: No obstruction or bowel wall thickening. Moderate to increased stool greater on the left left. Peritoneal cavity: No ascites, collection or mesenteric inflammatory response. Bones: Degenerative changes of the lumbar spine. Right knee prosthesis creates artifact which obscures the right popliteal artery. Reproductive: Prostate is mildly enlarged. IMPRESSION: No evidence of acute vascular occlusion. Stable findings atherosclerotic changes in areas of qmwh-[id number] stenosis as described above. The vessels are not well visualized below the level of the ankle but appear patent to this level. No acute abnormality in the abdomen or pelvis. Area ovoid soft tissue swelling in the lateral left upper calf, better evaluated by ultrasound, representing fluid collection or abscess. RADIATION DOSE DELIVERED: Total DLP DATA REPOSITORY: All CT scans at this facility are submitted to the National Radiology Data Registry (NRDR) Dose Index Registry (DIR) with the [employer] (ACR). RADIATION OPTIMIZATION: All CT scans at this facility use at least one of these dose optimization techniques: automated exposure control; mA and/or kV adjustment per patient size (includes targeted exams where dose is matched to clinical indication); or iterative reconstruction.
[2025-03-30] MEDS: Acetaminophen 325 MG TAB (16:35)
--- NOTE | 2025-03-30 17:01 | ED.GENADUL_ITS ---
Discharge Plan Disposition Patient Disposition: Home Condition: Stable Discharge Details Clinical Impression: Cellulitis and abscess of left leg Primary Care Provider: Ximena Kemp ED Provider: Ilana Shaw Home Meds and New Rx's Prescriptions: New cephalexin 500 mg tablet 500 mg PO BID 10 Days Qty: 20 0RF Rx Instructions: Please take 1 tablet by mouth twice daily for the next 10 days may be crushed No Action apixaban 5 mg (74 tabs) tablets,dose pack See Rx Instructions .ROUTE .COMPLEX Qty: 74 0RF Rx Instructions: orally per package directions Discharge Instructions Instructions: Abscess Incision and Drainage ED, Cellulitis (Skin Infection), Adult ED Additional Instructions: Please take the antibiotics twice daily as prescribed. You were given a different antibiotic called clindamycin here in the department. An incision and drainage was attempted no infected fluid was obtained. Please keep an eye on the redness be seen sooner for any increasing erythema redness swelling drainage or concerns. Follow up with primary care provider in 3-5 days. Return to ED sooner if any worsening or concerns. Please take Tylenol or Ibuprofen with food every 4-6 hours as needed for pain and swelling. Referrals: Ximena Kemp [Primary Care Provider, Medicine] Referral Note: ER follow-up left leg cellulitis call for an appointment Clinical Impression: Cellulitis and abscess of left leg Discharge Data Discharge Date/Time-TO BE ENTERED AT DEPARTURE: 03/30/25 20:05 HPI General Mode of arrival: ambulatory . Date/Time Provider Initiated Documentation: 03/30/25 13:46 . Limitations to Documentation: no limitations and physical limitation (Dementia, Hx of Wernickes encephalopathy) . Information obtained by: patient, family (Caregiver, brother), RN notes reviewed and old records reviewed . HPI Narrative: 74-year-old male presents to the ER accompanied by his caregiver and brother c/o/Wesley with left lower leg pain which began approximately 2 days to 2 weeks ago. Patient is a poor historian. 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 He is complaining of left lower extremity pain he does have an area approximately 4 to 5 cm in diameter that is red raised and erythemic with warmth. Did receive an ultrasound prior to my evaluation here in the emergency department which showed some residual thrombus possible abscess and fluid collection see offical report. Patient denies any fever or chills, is confused upon arrival and hypertensive with a blood pressure 167/109. Related Data Home Medications ?Medication ?Instructions ?Recorded ?Confirmed apixaban 5 mg (74 tabs) tablets in See Rx Instructions PO .COMPLEX 09/30/24 03/30/25 a dose pack #74 dose pk cephalexin 500 mg tablet 500 mg PO BID Cellulitis 10 days 03/30/25 #20 tabs Previous Rx's ?Medication ?Instructions ?Recorded apixaban 5 mg (74 tabs) tablets in See Rx Instructions PO .COMPLEX 09/30/24 a dose pack #74 dose pk cephalexin 500 mg tablet 500 mg PO BID Cellulitis 10 days 03/30/25 #20 tabs Allergies Allergy/AdvReac Type Severity Reaction Status Date / Time ciprofloxacin Allergy Severe Anaphylaxsi Verified 03/30/25 13:41 s atropine AdvReac Severe BP drops Verified 03/30/25 13:41 pentazocine AdvReac Unknown Unknown Verified 03/30/25 13:41 IV contrast AdvReac Unknown Hives Uncoded 03/30/25 13:41 General Stated Complaint: Orthopedic MEGHNA: 4 Review of Systems All systems reviewed & are unremarkable except as noted in HPI and below and Unobtainable due to mental condition Constitutional Constitutional: Reports as per HPI, Denies chills, Denies fever(s) and Denies headache(s) ENT Ears, Nose, Mouth, and Throat: Denies headache(s) Cardiovascular Cardiovascular: Denies chest pain and Denies dyspnea Respiratory Respiratory: Denies dyspnea Musculoskeletal Musculoskeletal: Reports as per HPI (Leg pain) Neurologic Neurologic: Denies headache(s) Exam Narrative Exam Narrative: Constitutional: Alert and oriented x2. Easily forgets, appears agitated at times. Appears stated age. Thin body habitus. Head: Normocephalic, no trauma. Eyes: Pupils PERRL, Red reflex noted, EOM's intact. Eyelids symmetrical without lesions, discharge, or swelling. ENT: Bilateral TM's WNL, External ear normal to inspection, no mastoid TTP, swelling, or erythema, Nasal turbinates WNL, no nasal discharge. Normal dentition, Posterior pharynx WNL, no exudate. Chest: RRR, Normal S1, S2, distal pulses intact. Does have a healed vertical midsternal scar. Resp: Lungs clear to auscultation bilaterally, no wheezes, rales, or rhonchi. Abdomen: Soft, non-distended, Normoactive bowel sounds all 4 quads. Musculoskeletal: Moves all 4 extremities without difficulty. Does have a swollen area approximately 4 x 5 cm raised area to his left lateral calf which is warm slightly erythemic. Skin: No suspicious rashes or lesions. Capillary refill less than 2 sec. bilateral lower feet are ecchymotic, brisk capillary refill, purplish in color and swollen. Brother reports that they have looked like that for years Neurologic: Cranial nerves II-XII intact. Alert and oriented x 2. Motor: No deficits noted. Sensory: Intact bilaterally all 4 extremities. Hematologic/Lymphatic: No ecchymosis, no lymphadenopathy. Course Vital Signs Vital signs: Vital Signs Temperature 36.7 C 03/30/25 13:39 Pulse 82 03/30/25 13:39 Respiratory Rate 12 03/30/25 13:39 Blood Pressure 167/109 H 03/30/25 13:39 Pulse Oximetry 94 03/30/25 13:39 Temperature 36.7 C 03/30/25 13:39 Temperature Source Oral 03/30/25 13:39 Pulse 82 03/30/25 13:39 Respiratory Rate 12 03/30/25 13:39 Blood Pressure 167/109 H 03/30/25 13:39 Blood Pressure Position Sitting 03/30/25 13:39 Pulse Oximetry 94 03/30/25 13:39 Oxygen Delivery Method Room Air 03/30/25 13:39 Oxygen Flow Rate 0 03/30/25 13:39 Lab/Test Results Lab/Test Results: 03/30/25 16:55 Blood Blood Culture - Pending 03/30/25 16:18 Blood Blood Culture - Pending Procedure Abscess Drainage Date of Procedure: 03/30/25 Time of Procedure: 19:12 Provider that performed the procedure: Ilana Ya Time Out Performed: Yes Patient Consented: Verbally Pre Procedure Medication: Hydromorphone and Morphine Amount of Pre-Medication(mg): 2.5 Location of Exam: Lower extremity/left (Left lateral calf) Indication: Abscess, Mass, Pain, Redness and Swelling. Local anesthetic: other anesthetic ([place] anesthetic), Sterility: Non Sterile. Procedure Prep: Hand hygiene, Surgical Mask and Alcohol. Technique used, needle aspiration. Amount of fluid expressed(mL): 0 Irrigation: no irrigation Procedure Description/Note: No purulent drainage expressed, small amount of bleeding pressure dressing applied post procedure. Will treat for cellulitis and have patient follow-up with PCP Medical Decision Making 74-year-old male presents to the ER accompanied by his caregiver and brother c/o/Wesley with left lower leg pain which began approximately 2 days to 2 weeks. Patient is a poor historian. 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 He is complaining of left lower extremity pain he does have an area approximately 4 to 5 cm in diameter that is red raised and erythemic with warmth. Did receive an ultrasound prior to my evaluation here in the emergency department which showed some residual thrombus possible abscess and fluid collection see offical report. Patient denies any fever or chills, is confused upon arrival and hypertensive with a blood pressure 167/109. According to brother who is caregiver patient is at baseline mentation. Workup ordered including CBC CMP PT PTT blood cultures x 2, CRP and ESR CTA of aorta with runoff to evaluate distal circulation versus possible hematoma. Clindamycin 600 mg IV piggyback ordered. See procedure note needle aspiration attempted no purulent drainage noted. Pressure dressing applied. Patient discharged with cephalexin tablets. Marilin haynes's caregiver brother states that he has to crush his apixaban to have patient take it otherwise he will not take any pills from him. Therefore did not prescribe clindamycin. Discussed home care, strict return instructions with caregiver and patient caregiver Wesley who is his brother verbalized understanding. Instructed to follow-up with PCP or return to the ER for any worsening redness swelling drainage or concerns. This text was generated using [employer] - It's what's in storeation system, please disregard any oddities of phrase or misspellings. Medical Records Medical records reviewed: Yes I reviewed the patient's medical records. Imaging Data Radiologic Study: Imaging: Ultrasound Radiologist's impression: TECHNIQUE: Lower extremity venous ultrasound performed using grayscale, color- flow, and spectral Doppler analysis. COMPARISON: US US LOWER EXTREMITY VENOUS RT from 09/30/[address] ABD AORTA CTA W RUNOFF from 09/30/2024 FINDINGS: The common femoral, profundus femoral, proximal and mid femoral veins dem onstrate normal compressibility, augmentation, and color Doppler. There is thin echogenicity noted in the distal left femoral and popliteal veins consistent with residual old thrombus. The posterior tibial veins are patent. No saphenous vein thrombosis or other superficial venous thrombosis is seen. The area of the patient's swelling in the lateral calf, there is fluid collection with some debris measuring 4.7 x 1.4 x 4.5 cm there is edema in the subcutaneous fat of the lower leg. IMPRESSION: Small amount of residual thrombus noted in the distal superficial femoral vein and popliteal vein. Edema and redness in the subcutaneous fat of the lower leg. Localized fluid collection with surrounding hyperemia could indicate an abscess. Radiologic Study #2: Imaging: CT Scan Radiologist's impression: COMPARISON: CT CT ABD AORTA CTA W RUNOFF from 09/30/2024 FINDINGS: Vascular Structures: Abdomen: Celiac [place]: No significant stenosis. SMA: Moderate stenosis prox. Renal Arteries: Moderate stenosis proximal left renal artery. There is a single renal artery perfusing each kidney. Aorta: No aneurysm. No dissection. Pelvis: Iliac Arteries: Calcific plaque and mild mural thrombus without significant stenosis. Common Femoral Arteries: No significant stenosis. Lower extremities: Right: Common Femoral: No significant stenosis. Superficial Femoral: No significant stenosis. Popliteal: No significant stenosis. Knee Trifurcation: No significant stenosis. Posterior Tibial: Obscured by significant artifact from right knee prosthesis. Peroneal: No significant stenosis. The distal vessels are opacified to the level of the ankle but not well vis ualized distally. Left: Common Femoral: No significant stenosis. Superficial Femoral: No significant stenosis. Popliteal: No significant stenosis. Knee Trifurcation: No significant stenosis. Posterior Tibial: No significant stenosis. Peroneal: No significant stenosis. The distal vessels are opacified to the level of the ankle but not well visualized distally. Soft Tissues: There is significant edema in the subcutaneous fat of the bilateral feet and ankles extending to the level of the upper calf. There is a focal area of ovoid soft tissue prominence in the subcutaneous fat of the mid lower leg laterally. This was seen on ultrasound to represent a fluid collection, possible abscess. It measures roughly 5 in length by 1.8 cm transverse. The exam is mildly limited by motion. Lungs: No acute findings. Liver: Normal density. No measurable mass. Gallbladder and biliary tract: No radiodense calculus or dilation. Pancreas: Normal density, no abnormal calcifications or inflammatory process. Spleen: Normal. Kidneys: Normal size, contour and axis. No radiodense stones or obstructive uropathy. No masses seen. Adrenal glands: No masses seen. Bladder: Nearly empty. Question mild wall thickening. Bowel: No obstruction or bowel wall thickening. Moderate to increased stool greater on the left left. Peritoneal cavity: No ascites, collection or mesenteric inflammatory response. Bones: Degenerative changes of the lumbar spine. Right knee prosthesis creates artifact which obscures the right popliteal artery. Reproductive: Prostate is mildly enlarged. IMPRESSION: No evidence of acute vascular occlusion. Stable findings atherosclerotic changes in areas of [id number] stenosis as described above. The vessels are not well visualized below the level of the ankle but appear patent to this level. No acute abnormality in the abdomen or pelvis. Area ovoid soft tissue swelling in the lateral left upper calf, better evaluated by ultrasound, representing fluid collection or abscess. Lab Data Lab results reviewed: Yes I reviewed the patient's lab results. Labs: 03/30/25 17:15 Blood Blood Culture - Pending 03/30/25 16:55 Blood Blood Culture - Pending Laboratory Tests Range/Units 03/30/25 03/30/25 16:55 17:15 WBC (4.4-10.8) 10^3/uL 10.66 RBC (4.36-5.78) 10^6/uL 4.57 Hgb (13.5-17.5) g/dL 14.9 Hct (40.0-50.0) % 43.5 MCV (80-95) fL 95 MCH (27.0-33.0) pg 32.6 MCHC (32.0-36.0) % 34.3 RDW (11.8-14.1) % 13.5 Plt Count (130-400) 10^3/uL 291 MPV (8.0-11.0) fL 9.4 Immature Gran % % 0.8 Neutrophils % % 64.6 Lymphocytes % % 16.9 Monocytes % % 9.7 Eosinophils % % 7.0 Basophils % % 1.0 Nucleated RBC % (0.0-0.3) % 0.0 Absolute Neutrophils (1.2-6.7) 10^3/uL 6.89 H Absolute Lymphocytes (1.2-3.4) 10^3/uL 1.80 Absolute Monocytes (0.1-0.8) 10^3/uL 1.03 H Absolute Eosinophils (0.0-0.7) 10^3/uL 0.75 H Absolute Basophils (0.0-0.2) 10^3/uL 0.11 ESR (0-20) mm/hr 2 PT (9.1-11.1) sec 10.9 INR (0.9-1.1) 1.1 Sodium (136-145) mmol/L 133 L Potassium (3.5-5.1) mmol/L 4.4 Chloride (98-107) mmol/L 94 L Carbon Dioxide (21.0-32.0) mmol/L 32.1 H Anion Gap (3-11) mmol/L 6.9 BUN (7-18) mg/dL 9 Creatinine (0.70-1.30) mg/dL 0.9 Est GFR (CKD-EPI 2020) (mL/min/1.73m2) 89.62 Glucose (74-106) mg/dL 111 H Calcium (8.5-10.1) mg/dL 9.6 Magnesium (1.8-2.4) mg/dL 2.1 Total Bilirubin (0.2-1.0) mg/dL 1.4 H AST (15-37) U/L 19 ALT (16-63) U/L 18 Alkaline Phosphatase (46-116) U/L 94 C-Reactive Protein (<or=0.5) mg/dL 0.86 H Total Protein (6.4-8.2) g/dL 8.4 H Albumin (3.4-5.0) g/dL 4.2 PFSH All Active Problems (Updated 03/30/25 @ 19:14 by Ilana Shaw NP) Cellulitis and abscess of left leg (Acute) Medical History (Updated 03/30/25 @ 19:14 by Ilana Shaw NP) Arthritis Chronic pain Alcohol abuse GERD (gastroesophageal reflux disease) DVT (deep venous thrombosis) GI bleed Wernicke encephalopathy Surgical History H/O arthroscopic knee surgery Social History Smoking/Tobacco Use Status: Current every day Tobacco Type: cigarettes Smoking risk assessment performed?: Yes Alcohol Intake: current Alcohol Intake frequency: 3 or more drinks per day Alcohol type: wine Drug use: Never Substance use type: does not use Do you feel safe at home: Yes Do you feel safe in your relationship?: Yes PAWSS Have you Been Recently Intoxicated or Drunk Within the Last 30 days?: No Have you Ever Experienced Previous Episodes of Alcohol Withdrawal?: No Have you ever Experienced Withdrawal Seizures?: No Have you ever Experienced Delirium Tremens(DT)s?: No Have you ever undergone Alcohol Rehabilitation Treatment (i.e, inpt ot outpatient treatment programs)?: No Have you ever Experienced Blackouts?: No Have you ever Combined Alcohol with other Downers within the last 90 days?: No Have you ever Combined Alcohol with any other Substance of Abuse during the last 90 days?: No Positive Blood Alcohol level on Presentation? [PCS.BAL]: No Evidence of Increased Autonomic Activity (i.e. HR>120, tremor, sweating, agitation, nausea)?: No Result: 0 POCUS Exam (ED) Limited Soft Tissue Exam PROVIDER THAT PERFORMED THE STUDY: Ilana Shaw
[2025-03-30 17:04] LABS: Abs Immature Grans 0.08 10^3/uL (0.0-0.06); HCT 43.5 % (40.0-50.0); HGB 14.9 g/dL (13.5-17.5); Immature Grans % 0.8 %; MCH 32.6 pg (27.0-33.0); MCHC 34.3 % (32.0-36.0); MCV 95 fL (80-95); MPV 9.4 fL (8.0-11.0); Platelet Count 291 10^3/uL (130-400); RBC 4.57 10^6/uL (4.36-5.78); RDW 13.5 % (11.8-14.1); RDW-SD 47.3 fL; WBC 10.66 10^3/uL (4.4-10.8)
[2025-03-30] MEDS: Ondansetron 4 MG/2 ML VIAL 2 MG IVP (17:04)
[2025-03-30 17:05] LABS: ESR 2 mm/hr (0-20)
[2025-03-30] MEDS: MORPHine 10 MG/ML VIAL 2 MG IVP (17:05)
[2025-03-30 17:23] LABS: ALT 18 U/L (16-63); AST 19 U/L (15-37); Albumin 4.2 g/dL (3.4-5.0); Alkaline Phosphatase 94 U/L (46-116); Anion Gap 6.9 mmol/L (3-11); BUN 9 mg/dL (7-18); Bilirubin, Total 1.4 mg/dL (0.2-1.0); C-Reactive Protein 0.86 mg/dL (<or=0.5); CO2 32.1 mmol/L (21.0-32.0); Calcium 9.6 mg/dL (8.5-10.1); Chloride 94 mmol/L (98-107); Estimated GFR 89.62 (mL/min/1.73m2); Glucose 111 mg/dL (74-106); Magnesium 2.1 mg/dL (1.8-2.4); Potassium 4.4 mmol/L (3.5-5.1); Sodium 133 mmol/L (136-145); Total Protein 8.4 g/dL (6.4-8.2)
[2025-03-30] MEDS: CLINDAMYCIN 600 MG/50 ML BAG 100 MG IVPB (17:25)
[2025-03-30 17:36] LABS: INR 1.1 (0.9-1.1); Prothrombin Time 10.9 sec (9.1-11.1)
[2025-03-30] MEDS: Omnipaque 350 MG/ML 100 ML BTL IJ (17:47)
[2025-03-30] MEDS: Normal Saline - Diluent 50 ML VIAL IJ ×2 (17:47→17:48)
[2025-03-30] MEDS: HYDROmorphone 2 MG/ML SYR 0.5 MG IVP (17:48)
[2025-03-30] MEDS: Normal Saline Flush 10 ML SYR IVP (17:48)
[2025-03-30] MEDS: Ibuprofen 200 MG TAB PO (19:41)
[2025-03-30] MEDS: Cephalexin 500 MG CAP PO (19:41)
== END 2025-03-30 20:05 | disposition home or self-care (01) ==
PROVIDERS: Emergency Provider Registered Nurse Emergency; PCP Internal Medicine
DX: L03.116 Cellulitis of left lower limb (principal); L02.416 Cutaneous abscess of left lower limb
CPT/HCPCS: 10060; 36415; 75635; 80053; 85652; 87040; 96365; 96375; 99285; 83735; 85025; 85610; 86140; 93971; 99284; J0737; J1171; J2270; J2405; J3490